=== PATIENT | male | born 1950 | race Caucasian/White ===

== ENCOUNTER → 2016-06-27 | Outpatient (CLI) | payer MEDICARE, BC ==
--- NOTE | 2016-06-27 13:57 | CT ---
EXAMINATION TYPE: CT sinus wo con DATE OF EXAM: 06/27/2016 1:00 PM COMPARISON: NONE HISTORY: 66-year-old male complains of recurrent sinus infections. CT DLP: 573 mGycm Automated exposure control for dose reduction was used. TECHNIQUE: Noncontrast axial views of the paranasal sinuses were obtained. Coronal reconstructions pe rformed. FINDINGS: Moderate mucosal thickening right maxillary sinus with air-fluid level. Mild mucosal thickening left maxillary sinus with an inferior 1.2 cm polyp or mucosal retention cyst. Scattered mild mucosal thickening ethmoid air cells and some frothy partial opacification of the righ t frontal sinus. Suggestion of slight reactive ny- osteogenesis involving the posterior right maxillary sinus wall. There is no destruction of the osseous sotelo of the paranasal sinuses. The osteomeatal complexes are patent. The imaged brain, sella, skull base and orbits are normal in appearance. Mastoid air cells and middle ear cavities are well pneumatized. Reformatted images confirm above findings. IMPRESSION: 1. Findings suggest acute on chronic right maxillary sinus disease. Possible additional acute sinusit is involving the right frontal sinus. 2. Additional scattered mild mucosal thickening left maxillary sinus and ethmoid air cells. 3. There is some reactive ny-osteogenesis involving the right maxillary sinus wall suggesting long-s tanding chronic sinusitis.
== END | disposition home or self-care (01) ==
LOC: RADCTMAIN 12:40
PROVIDERS: ATTEND Otolaryngology
DX: J32.9 Chronic sinusitis, unspecified (principal)
CPT/HCPCS: 70486

== ENCOUNTER → 2016-07-10 | Outpatient (CLI) | payer MEDICARE, BC ==
[2016-07-10 09:37] LABS: Potassium 3.8 mmol/L (3.5-5.1)
== END ==
LOC: LABWHC1 08:30
PROVIDERS: ATTEND Orthopaedic Surgery
DX: Z01.812 Encounter for preprocedural laboratory examination (principal)
CPT/HCPCS: 36415; 80051

== ENCOUNTER 2016-09-10 09:13 | Day surgery (SDC) | payer BC, MEDICARE ==
[2016-09-04 09:52] VITALS: BMI 31.1
[~2016-09-10 09:13] MED LIST: DEXAMETHASONE SOD PHOSPHATE 10 MG/ML 1 ML VIAL IV ONE; DEXAMETHASONE SOD PHOSPHATE 4 MG/ML 1 ML VIAL IV ONE; FAMOTIDINE 20 MG/2 ML VIAL IV ONE; HYDROmorphone 1 MG/ML 1 ML SYRINGE IVP PRN; LACTATED RINGERS 1,000 ML IV SCH; ONDANSETRON 4 MG/2 ML VIAL IVP ONE; ceFAZolin 1,000 MG in DEXTROSE/WATER 1 50ML.BAG IV ONE
[2016-09-10 10:18] VITALS: RESP 16
[2016-09-10] MEDS: OXYMETAZOLINE 0.05% NASL SPRAY 15 ML NASAL ONE ×5 (10:18→10:37)
[2016-09-10] MEDS ORDERED: LIDOCAINE 1% 20 ML VIAL (10MG/ML) FOR IV START INTRADERMA ONE (10:22)
[2016-09-10] MEDS ORDERED: DEXAMETHASONE SOD PHOS (MDV) 100 MG/10 ML VIAL ONE (10:36)
[2016-09-10] MEDS ORDERED: MIDAZOLAM 2 MG/2 ML VIAL ONE (10:36)
[2016-09-10] MEDS ORDERED: ePHEDrine 50 MG/ML 1 ML AMP ONE (10:36)
[2016-09-10] MEDS ORDERED: LIDOCAINE 1% INJ 10MG/ML (20 ML MDV) ONE (10:36)
[2016-09-10] MEDS ORDERED: PROPOFOL 10 MG/ML 20 ML VIAL IV ONE (10:36)
[2016-09-10] MEDS ORDERED: SUCCINYLCHOLINE CHLORIDE 100 MG/5 ML SYR IV ONE (10:36)
[2016-09-10] MEDS ORDERED: fentaNYL (PF) 50 MCG/ML 2 ML AMP ONE (10:36)
[2016-09-10] MEDS ORDERED: LIDOCAINE 1%-EPI 1:100,000 20 ML VIAL SUBMUCOSAL ONE (10:53)
--- NOTE | 2016-09-10 10:57 | US ---
EXAMINATION TYPE: US venous doppler duplex LE LT DATE OF EXAM: 09/10/2016 9:44 AM COMPARISON: NONE CLINICAL HISTORY: R/O DVT . SIDE PERFORMED: left TECHNIQUE: The lower extremity deep venous system is examined utilizing real time linear array sonog mireille with graded compression, doppler sonography and color-flow sonography. VESSELS IMAGED: External Iliac Vein (EIV) Common Femoral Vein Deep Femoral Vein Greater Saphenous Vein * Femoral Vein Popliteal Vein Small Saphenous Vein * Proximal Calf Veins (* superficial vessels) Bakers cyst left measuring 8.1 x 2.4 x 5.4cm Left Leg: Negative for DVT IMPRESSION: 1. THIS EXAMINATION IS NEGATIVE FOR DVT WITHIN THE LEFT LEG. 2. LARGE, 8 CM POPLITEAL FOSSA CYST.
[2016-09-10] MEDS ORDERED: OXYMETAZOLINE 0.05% NASL SPRAY 15 ML ONE (11:54)
--- NOTE | 2016-09-10 11:55 | P.OP ---
Date of Procedure: 09/10/16 Preoperative Diagnosis: Deviated nasal septum Inferior turbinate hypertrophy Chronic sinusitis Postoperative Diagnosis: Same Procedure(s) Performed: Septoplasty Outfracture and submucous resection of inferior turbinates Bilateral endoscopic sinus surgery including bilateral maxillary antrostomy, bilateral anterior posterior ethmoidectomy, right frontal sinus plasty Implants: Anesthesia: YVAN Surgeon: Moustapha Lynn Estimated Blood Loss (ml): 20 Pathology: other (Nasal septal bone and cartilage and sinus contents) Condition: stable Disposition: PACU Indications for Procedure: Is a 66-year-old white male with chronic nasal airway obstruction congestion and recurrent sinus infections as well as chronic drainage more on the right than the left with computed tomography scan showing evidence of chronic sinusitis. Operative Findings: Septum deviated to the left, inferior turbinate hypertrophy, chronic sinusitis involving the maxillary ethmoid as well as right frontal sinuses Description of Procedure: The patient was brought in the operative suite and placed in a supine position. The patient underwent induction of general anesthesia with oral endotracheal intubation without difficulty. The patient was prepped and draped in the usual aseptic fashion. Orbits were in the operating field for monitoring The case and computed tomography scan was on the computer screen for review throughout the case also. 1% lidocaine with 1-100,000 epinephrine was infused submucosally both sides nasal septum. This is also infused lateral nasal wall bilaterally and. The middle turbinates bilaterally. While this was taking vasoconstrictive effect the inferior turbinates were infractured with Gila elevator partial submucous resection inferior turbinates was performed with Coblation ablating a portion of the submucosal soft tissue and then outfractured with the Gila elevator. A left hemitransfixion incision was made with the mucoperichondrial and mucoperiosteal flap on the left elevated. The bony cartilaginous junction was disarticulated and the mucoperiosteal flap on the right was elevated. Bony nasal septal deformities were removed Omar forceps. An inferior cartilaginous strip was removed leaving a full 1.5 cm caudal strut. Checking intranasally this corrected the nasoseptal deformities and the hemitransfixion incision was closed running 4-0 chromic suture. Full 0 endoscopic evaluation is performed bilaterally. Beginning on the left the middle turbinate was medialized with the Haworth elevator. The max ostium was located with a ballpoint probe and infundibulotomy was performed followed by uncinectomy and the antrostomy was enlarged at the expense of the anterior and posterior fontanelle taking care anteriorly not to injure the lacrimal bone. Maxillary sinus was evaluated with a 30 and 70 endoscope. Anterior posterior ethmoidectomy were then performed from anterior to posterior to the level skull base. There were small polyps within the ethmoid air cells. Attention was then turned to the right where the procedures were followed as they were on the left including medialization middle turbinate maxillary antrostomy with exploration of the sinus anterior posterior ethmoidectomy. Frontal sinusotomy was performed on the right with the balloon sinus plasty technique using the entOnepagerus light guided system with the sinus was explored also with the 30 endoscope. Once this was completed standard nasal pore nasal dressing was placed in the middle meatus under direct visualization bilaterally and Najera airway splints coated bacitracin ointment were placed in nasal cavities and sutured trans-septally with a 4-0 Vicryl suture. Once this completed the patient was allowed to emerge from anesthesia having tolerated procedure well was extubated in the operating suite and transferred to postop recovery area in satisfactory condition.
[2016-09-10 12:03] VITALS: TEMP 98.4
[2016-09-10 14:22] VITALS: BP 111/72; PULSE 76
== END 2016-09-10 14:44 | disposition home or self-care (01) ==
LOC: OR 09:13
PROVIDERS: ATTEND Otolaryngology
DX: J34.2 Deviated nasal septum (principal); J34.3 Hypertrophy of nasal turbinates; J32.9 Chronic sinusitis, unspecified; I10 Essential (primary) hypertension; Z87.891 Personal history of nicotine dependence; E78.5 Hyperlipidemia, unspecified; E07.9 Disorder of thyroid, unspecified; Z79.899 Other long term (current) drug therapy; Z79.84 Long term (current) use of oral hypoglycemic drugs
CPT/HCPCS: 88305; 88300; 93971; 30140; 30520; 31256; 31255; 31276; C1726; J2250; J1100 ×2; J2405; J2001; J3010; J0690; J0330; J2704

== ENCOUNTER 2019-09-26 06:55 | Inpatient (IN) | payer MEDICARE ==
--- NOTE | 2019-09-26 07:28 | ED ---
General Adult HPI - General Chief complaint: Psychiatric Symptoms Stated complaint: Mental Health Time Seen by Provider: 09/26/19 07:11 Source: patient, RN notes reviewed Mode of arrival: ambulatory Limitations: no limitations - History of Present Illness Initial comments: Patient is a pleasant 69-year-old male presenting to the emergency Department with depression. Symptoms have been worse over the past few months. Patient has not been sleeping or eating well. Patient has lost 20-30 pounds. Patient was restarted on his Celexa a few months ago. Patient was then change to Cymbalta 2 weeks ago. Patient occasionally has thoughts of ways he could harm himself however does not believe he would act on it. No homicidal thoughts. Patient does drink however discontinue this a couple months ago. He should does have history of atrial fibrillation. Otherwise no physical complaints. - Related Data Home Medications Medication Instructions Recorded Confirmed Aspirin [Adult Low Dose Aspirin EC] 81 mg PO DAILY 09/04/16 09/26/19 Cholecalciferol [Vitamin D3] 2,000 unit PO DAILY 09/04/16 09/26/19 Levothyroxine Sodium [Synthroid] 25 mcg PO DAILY 09/04/16 09/26/19 Losartan/Hydrochlorothiazide 1 tab PO DAILY 09/04/16 09/26/19 [Hyzaar 100-25 Tablet] Metoprolol Succinate (ER) [Toprol 50 mg PO BID 09/04/16 09/26/19 Xl] ALPRAZolam [Xanax] 0.125 mg PO BID PRN 09/26/19 09/26/19 Apixaban [Eliquis] 5 mg PO BID 09/26/19 09/26/19 DULoxetine HCL [Cymbalta] 30 mg PO BID 09/26/19 09/26/19 Doxycycline Monohydrate 40 mg PO DAILY 09/26/19 09/26/19 [Doxycycline Ir-Dr] Rosuvastatin Calcium 5 mg PO DAILY 09/26/19 09/26/19 Allergies Allergy/AdvReac Type Severity Reaction Status Date / Time No Known Allergies Allergy Verified 09/26/19 10:41 Review of Systems ROS Statement: Those systems with pertinent positive or pertinent negative responses have been documented in the HPI. ROS Other: All systems not noted in ROS Statement are negative. Constitutional: Denies: fever Eyes: Denies: eye pain ENT: Denies: ear pain Respiratory: Denies: cough Cardiovascular: Denies: chest pain Endocrine: Reports: fatigue Gastrointestinal: Denies: abdominal pain Genitourinary: Denies: dysuria Musculoskeletal: Denies: back pain Skin: Denies: rash Neurological: Denies: headache Psychiatric: Reports: as per HPI, anxiety, depression Past Medical History Past Medical History: Atrial Fibrillation, Hyperlipidemia, Hypertension, Thyroid Disorder History of Any Multi-Drug Resistant Organisms: None Reported Past Surgical History: Orthopedic Surgery Additional Past Surgical History / Comment(s): achilles tendon repair, carpal tunnel R wrist, veronica knee scope Past Anesthesia/Blood Transfusion Reactions: No Reported Reaction Past Psychological History: Anxiety, Depression Smoking Status: Former smoker Past Alcohol Use History: None Reported Past Drug Use History: None Reported - Past Family History Mother Family Medical History: No Reported History General Exam Limitations: no limitations General appearance: alert, in no apparent distress Head exam: Present: normocephalic Eye exam: Present: normal appearance Neck exam: Present: normal inspection Respiratory exam: Present: normal lung sounds bilaterally Cardiovascular Exam: Present: regular rate, normal rhythm GI/Abdominal exam: Present: soft. Absent: tenderness Extremities exam: Present: normal inspection Neurological exam: Present: alert. Absent: motor sensory deficit Psychiatric exam: Present: depressed Skin exam: Present: normal color Course Vital Signs 09/26/19 09/26/19 09/26/19 06:59 08:10 09:30 Temperature 97.9 F 97.8 F Pulse Rate 62 114 H Respiratory 18 16 Rate Blood Pressure 148/105 132/91 137/107 O2 Sat by Pulse 99 98 Oximetry 09/26/19 10:00 Temperature Pulse Rate 106 H Respiratory 15 Rate Blood Pressure 142/107 O2 Sat by Pulse Oximetry EKG Findings - EKG Comments: EKG Findings:: A. fib with RVR, rate 124. QRS 92. QT 300. QTc were 31. Left axis. Inferior Q waves. No acute ST change. Medical Decision Making - Medical Decision Making Patient seen by mental health services with plan for admission - Lab Data Result diagrams: 09/26/19 08:24 09/26/19 08:24 Lab Results 09/26/19 09/26/19 09/26/19 Range/Units 07:30 08:24 08:24 WBC 4.6 (3.8-10.6) k/uL RBC 5.01 (4.30-5.90) m/uL Hgb 16.7 (13.0-17.5) gm/dL Hct 49.2 (39.0-53.0) % MCV 98.2 (80.0-100.0) fL MCH 33.3 (25.0-35.0) pg MCHC 33.9 (31.0-37.0) g/dL RDW 12.6 (11.5-15.5) % Plt Count 157 (150-450) k/uL Neutrophils % 54 % Lymphocytes % 31 % Monocytes % 9 % Eosinophils % 4 % Basophils % 1 % Neutrophils # 2.5 (1.3-7.7) k/uL Lymphocytes # 1.4 (1.0-4.8) k/uL Monocytes # 0.4 (0-1.0) k/uL Eosinophils # 0.2 (0-0.7) k/uL Basophils # 0.0 (0-0.2) k/uL Sodium 134 L (137-145) mmol/L Potassium 4.1 (3.5-5.1) mmol/L Chloride 99 (98-107) mmol/L Carbon Dioxide 27 (22-30) mmol/L Anion Gap 8 mmol/L BUN 15 (9-20) mg/dL Creatinine 0.88 (0.66-1.25) mg/dL Est GFR (CKD-EPI)AfAm >90 (>60 ml/min/1.73 sqM) Est GFR (CKD-EPI)NonAf 89 (>60 ml/min/1.73 sqM) Glucose 104 H (74-99) mg/dL Calcium 9.5 (8.4-10.2) mg/dL Urine Color Yellow Urine Appearance Clear (Clear) Urine pH 5.5 (5.0-8.0) Ur Specific [place] 1.013 (1.001-1.035) Urine Protein Negative (Negative) Urine Glucose (UA) Negative (Negative) Urine Ketones Negative (Negative) Urine Blood Negative (Negative) Urine Nitrite Negative (Negative) Urine Bilirubin Negative (Negative) Urine Urobilinogen <2.0 (<2.0) mg/dL Ur Leukocyte Esterase Negative (Negative) Urine Opiates Screen Not Detected (NotDetected) Ur Oxycodone Screen Not Detected (NotDetected) Urine Methadone Screen Not Detected (NotDetected) Ur Propoxyphene Screen Not Detected (NotDetected) Ur Barbiturates Screen Not Detected (NotDetected) U Tricyclic Antidepress Not Detected (NotDetected) Ur Phencyclidine Scrn Not Detected (NotDetected) Ur Amphetamines Screen Not Detected (NotDetected) U Methamphetamines Scrn Not Detected (NotDetected) U Benzodiazepines Scrn Detected H (NotDetected) Urine Cocaine Screen Not Detected (NotDetected) U Marijuana (THC) Screen Not Detected (NotDetected) Serum Alcohol <10 mg/dL Disposition Clinical Impression: Depression, Acute anxiety Disposition: TRANSFER TO PSYCH HOSP/UNIT Is patient prescribed a controlled substance at d/c from ED?: No Referrals: Ted Roca MD [Primary Care Provider] - 1-2 days Decision Time: 11:27
[2019-09-26 07:38] LABS: Appearance,Urine Clear (Clear); Bilirubin,Urine Negative (Negative); Blood,Urine Negative (Negative); Color,Urine Yellow; Glucose,Urine (UA) Negative (Negative); Ketones,Urine Negative (Negative); Leukocyte Esterase,Urine Negative (Negative); Nitrite,Urine Negative (Negative); PH, Urine 5.5 (5.0-8.0); Protein,Urine Negative (Negative); Specific Gravity,Urine 1.013 (1.001-1.035); Urobilinogen,Urine <2.0 mg/dL (<2.0)
[2019-09-26 07:49] LABS: Amphetamine Screen,Urine Not Detected (NotDetected); Barbiturate Screen,Urine Not Detected (NotDetected); Benzodiazepines Screen,Urine Detected (NotDetected); Cocaine Screen,Urine Not Detected (NotDetected); Methadone Screen, Urine Not Detected (NotDetected); Opiate Screen,Urine Not Detected (NotDetected); Oxycodone Screen, Urine Not Detected (NotDetected); Phencyclidine Screen,Urine Not Detected (NotDetected); Tricyclic Antidepressant,Urine Not Detected (NotDetected); Urn Cannabinoid Scrn Not Detected (NotDetected)
[2019-09-26] MEDS ORDERED: METOPROLOL TARTRATE 25 MG TAB PO STA (08:19)
[2019-09-26 08:42] LABS: Basophils % (A) 1 %; Eosinophils # (A) 0.2 k/uL (0-0.7); Eosinophils % (A) 4 %; HCT 49.2 % (39.0-53.0); HGB 16.7 gm/dL (13.0-17.5); Lymphocytes # (A) 1.4 k/uL (1.0-4.8); Lymphocytes % (A) 31 %; MCH 33.3 pg (25.0-35.0); MCHC 33.9 g/dL (31.0-37.0); MCV 98.2 fL (80.0-100.0); Mean Platelet Volume 7.5; Monocytes # (A) 0.4 k/uL (0-1.0); Monocytes % (A) 9 %; Neutrophils # (A) 2.5 k/uL (1.3-7.7); Neutrophils % (A) 54 %; Platelet Count 157 k/uL (150-450); RBC 5.01 m/uL (4.30-5.90); RDW 12.6 % (11.5-15.5); WBC 4.6 k/uL (3.8-10.6)
[2019-09-26 08:51] LABS: African American GFR (CKD) >90 (>60 ml/min/1.73 sqM); Alcohol <10 mg/dL; Anion Gap 8 mmol/L; Blood Urea Nitrogen 15 mg/dL (9-20); Calcium 9.5 mg/dL (8.4-10.2); Carbon Dioxide 27 mmol/L (22-30); Chloride 99 mmol/L (98-107); Glucose 104 mg/dL (74-99); Non-African American GFR(CKD) 89 (>60 ml/min/1.73 sqM); Potassium 4.1 mmol/L (3.5-5.1); Sodium 134 mmol/L (137-145)
[2019-09-26] MEDS ORDERED: LORazepam 1 MG TAB PO STA (10:31)
[2019-09-26] MEDS ORDERED: ENALAPRILAT 1.25 MG/ML 1 ML VIAL IVP STA (11:43)
[2019-09-26] MEDS ORDERED: MAG HYDROX/AL HYDROX/SIMETH 30 ML CUP PO PRN (13:37)
[2019-09-26] MEDS ORDERED: ZIPRASIDONE 20 MG VIAL IM PRN (13:37)
[2019-09-26] MEDS ORDERED: ACETAMINOPHEN TAB 325 MG TAB PO PRN (13:37)
[2019-09-26] MEDS ORDERED: MAGNESIUM HYDROXIDE 2,400 MG/10 ML CUP PO PRN (13:37)
[2019-09-26] MEDS ORDERED: LORazepam 1 MG TAB PO PRN (13:37)
[2019-09-26 14:50] VITALS: BMI 27.8
--- NOTE | 2019-09-26 17:47 | P.MDCNMH ---
History of Present Illness H&P Date: 09/26/19 Chief Complaint: Medical management 69-year-old male with PMH of hypertension, atrial fibrillation hypothyroidism presents the ED for constellation of symptoms. He has been admitted to mental health unit for further management of his symptoms. [facility] physicians has been consulted for medical management of this patient. Patient reports worsening anxiety and insomnia over the past 2 months. He also reports worsening depression with passive suicidal thoughts but no plan. Patient states that he retired recently prior to coronavirus. He has worsening stressors in his life given that this daughter's have lost their jobs during this time daily. Patient states that prior to detention, he was a functional alcoholic for 35 years. Patient reports drinking anywhere between 2-7 beers, 4- 5 times a week. Patient states that he quit drinking on 07/08/2019. Patient reports his symptoms have been worsening since then. Patient states that he has not slept over the past 3 days. Patient denies any headache, lower extremity edema, nausea or vomiting, fever or chills, cough, chest pain, shortness of breath, palpitations, changes in urination or bowel habits. No changes in appetite or weight. He denies any dizziness, numbness/weakness or tingling of the extremities. In the ED, his vital signs were stable except for heart rate of 114. CBC was unremarkable. BMP showed sodium 134 and glucose 104. Urinalysis was negative. UDS was positive for benzodiazepines. Serum alcohol was negative. Review of Systems Pertinent positives and negatives as discussed in HPI, a complete review of systems was performed and all other systems are negative. Past Medical History Past Medical History: Atrial Fibrillation, Hyperlipidemia, Hypertension, Thyroid Disorder History of Any Multi-Drug Resistant Organisms: None Reported Past Surgical History: Orthopedic Surgery Additional Past Surgical History / Comment(s): achilles tendon repair, carpal tunnel R wrist, veronica knee scope Past Anesthesia/Blood Transfusion Reactions: No Reported Reaction Past Psychological History: Anxiety, Depression Smoking Status: Former smoker Past Alcohol Use History: None Reported Past Drug Use History: None Reported - Past Family History Mother Family Medical History: No Reported History Medications and Allergies Home Medications Medication Instructions Recorded Confirmed Type Aspirin [Adult Low Dose Aspirin EC] 81 mg PO DAILY 09/04/16 09/26/19 History Cholecalciferol [Vitamin D3] 2,000 unit PO DAILY 09/04/16 09/26/19 History Levothyroxine Sodium [Synthroid] 25 mcg PO DAILY 09/04/16 09/26/19 History Losartan/Hydrochlorothiazide 1 tab PO DAILY 09/04/16 09/26/19 History [Hyzaar 100-25 Tablet] Metoprolol Succinate (ER) [Toprol 50 mg PO BID 09/04/16 09/26/19 History Xl] ALPRAZolam [Xanax] 0.125 mg PO BID PRN 09/26/19 09/26/19 History Apixaban [Eliquis] 5 mg PO BID 09/26/19 09/26/19 History DULoxetine HCL [Cymbalta] 30 mg PO BID 09/26/19 09/26/19 History Doxycycline Monohydrate 40 mg PO DAILY 09/26/19 09/26/19 History [Doxycycline Ir-Dr] Rosuvastatin Calcium 5 mg PO DAILY 09/26/19 09/26/19 History Allergies Allergy/AdvReac Type Severity Reaction Status Date / Time No Known Allergies Allergy Verified 09/26/19 14:04 Physical Exam Vitals: Vital Signs Temp Pulse Pulse Resp BP BP Pulse Ox 09/26/19 14:16 97.3 F L 98 18 121/84 98 09/26/19 13:55 97.3 F L 98 18 121/84 98 09/26/19 13:00 16 126/93 09/26/19 12:02 125/99 09/26/19 11:32 71 18 130/107 98 09/26/19 10:00 106 H 15 142/107 09/26/19 09:30 137/107 09/26/19 08:10 97.8 F 114 H 16 132/91 98 09/26/19 06:59 97.9 F 62 18 148/105 99 Intake and Output 09/26/19 09/26/19 09/26/19 06:59 14:59 22:59 Other: Weight 90.718 kg 90.718 kg General: [non toxic], [no distress], [appears at stated age] Derm: [warm], [dry] Head: [atraumatic], [normocephalic], [symmetric] Eyes: [EOMI], [no lid lag], [anicteric sclera] Mouth: [no lip lesion], [mucus membranes moist] Cardiovascular: [S1S2 irregular], [no murmur], [positive DP pulse bilateral], Lungs: [CTA bilateral], [no rhonchi, no rales] , [no accessory muscle use] Abdominal: [soft], [ nontender to palpation], [no guarding], [no appreciable organomegaly] Ext: [no gross muscle atrophy], [no edema], [no contractures] Neuro: [ CN II-XI grossly intact], [no focal neuro deficits] Psych: [Alert], [oriented], [appropriate affect] Cranial Nerve Examination - Cranial Nerves Cranial Nerve II- Optic: Intact Cranial Nerve III- Oculomotor: Intact Cranial Nerve IV- Trochlear: Intact Cranial Nerve V- Trigeminal: Intact Cranial Nerve - Abducens: Intact Cranial Nerve VII- Facial: Intact Cranial Nerve VIII- Auditory: Intact Cranial Nerve IX- Glossopharyngeal: Intact Cranial Nerve X- Vagus: Intact Cranial Nerve XI- Accessory: Intact Cranial Nerve XII- Hypoglossal: Intact Results CBC & Chem 7: 09/26/19 08:24 09/26/19 08:24 Labs: Abnormal Lab Results - Last 24 Hours (Table) 09/26/19 09/26/19 Range/Units 07:30 08:24 Sodium 134 L (137-145) mmol/L Glucose 104 H (74-99) mg/dL U Benzodiazepines Scrn Detected H (NotDetected) Assessment and Plan Assessment: Atrial fibrillation with RVR Hypothyroidism Hypertension Chronic alcohol use EKG shows atrial fibrillation with RVR ventricular rate of 124. Patient was given metoprolol 25 mg by mouth in the ED. He will be restarted on metoprolol 50 g by mouth twice a day. Eliquis will be restarted for anticoagulation. His home medication of Synthroid 25 g by mouth daily will be restarted for history of hypothyroidism. Given his bout of A. fib with RVR, it would be appropriate to recheck TSH. His current blood pressure is 130/107. He will be restarted on losartan and hydrochlorothiazide. Patient's last drink was on July 07. He is outside the window for alcohol withdrawal. We will defer treatment of his chronic alcohol abuse to psychiatry. Thank you for this consult. Please call with any additional questions or concerns.
[2019-09-26 19:58] VITALS: TEMP 98.8
[2019-09-26 20:23] LABS: Appearance,Urine Clear (Clear); Bilirubin,Urine Negative (Negative); Blood,Urine Negative (Negative); Color,Urine Yellow; Glucose,Urine (UA) Negative (Negative); Ketones,Urine 1+ (Negative); Leukocyte Esterase,Urine Negative (Negative); Nitrite,Urine Negative (Negative); Protein,Urine Negative (Negative); Specific Gravity,Urine 1.009 (1.001-1.035); Urobilinogen,Urine <2.0 mg/dL (<2.0)
[2019-09-26] MEDS ORDERED: METOPROLOL SUCCINATE (ER) 50 MG TAB.ER.24H PO SCH (21:00)
[2019-09-26] MEDS ORDERED: DULoxetine HCL 30 MG CAPSULE.DR PO SCH (21:00)
[2019-09-26] MEDS ORDERED: APIXABAN 5 MG TAB PO SCH (21:00)
[2019-09-26] MEDS ORDERED: MELATONIN 5 MG TABLET PO SCH (21:00)
[2019-09-26 22:00] VITALS: RESP 18
[2019-09-26 22:34] VITALS: BP 84/52; PULSE 82
[2019-09-27] MEDS ORDERED: LEVOTHYROXINE 25 MCG TAB PO SCH (06:30)
[2019-09-27] MEDS ORDERED: DOXYCYCLINE MONOHYDRATE 40 MG PO SCH (09:00)
[2019-09-27] MEDS ORDERED: LOSARTAN-HCTZ 50-12.5 MG 1 EACH TAB PO SCH (09:00)
[2019-09-27] MEDS ORDERED: ASPIRIN 81 MG PO SCH (09:00)
[2019-09-27] MEDS ORDERED: ATORVASTATIN 10 MG TAB PO SCH (09:00)
[2019-09-27] MEDS ORDERED: CHOLECALCIFEROL 1,000 UNIT TAB PO SCH (09:00)
== END 2019-09-26 22:54 | disposition short-term general hospital (02) | DRG 881 ==
LOC: EC 06:55 → 3MHU 13:26
PROVIDERS: ADMIT Psychiatry & Neurology Psychiatry; ATTEND Psychiatry & Neurology Psychiatry
DX: F32.9 Major depressive disorder, single episode, unspecified (principal); R45.851 Suicidal ideations; F41.0 Panic disorder [episodic paroxysmal anxiety]; I48.91 Unspecified atrial fibrillation; I10 Essential (primary) hypertension; F10.20 Alcohol dependence, uncomplicated; E03.9 Hypothyroidism, unspecified; G47.00 Insomnia, unspecified; Y90.0 Blood alcohol level of less than 20 mg/100 ml; E78.5 Hyperlipidemia, unspecified; Z87.891 Personal history of nicotine dependence; Z79.01 Long term (current) use of anticoagulants; Z79.82 Long term (current) use of aspirin; Z79.890 Hormone replacement therapy; Z79.899 Other long term (current) drug therapy; Z98.890 Other specified postprocedural states
CPT/HCPCS: 36415; 80048; 80306; 80320; 81003; 82075; 85025; 93005; 96374; 99285

== ENCOUNTER 2019-09-26 21:43 | Inpatient (IN) | payer MEDICARE ==
[2019-09-27] MEDS: MELATONIN 5 MG TABLET PO PRN ×2 (00:37→23:53)
[2019-09-27] MEDS ORDERED: NALOXONE 0.4 MG/ML 1 ML VIAL IV PRN (01:31)
--- NOTE | 2019-09-27 01:35 | P.HPIM ---
History of Present Illness H&P Date: 09/27/19 The patient is a 69-year-old male with a PMH of A. fib on Eliquis, hypertension, hyperlipidemia, and hypothyroidism who presented to the ED initially on 09/25 with complaints of anxiety and insomnia along with depression and suicidal ideation. The patient was admitted to the mental health unit. Following admission however, the patient was noted to be hypotensive with a BP of 84/52 and a pulse of 120. The patient also reported feeling very dizzy upon standing. The patient was evaluated at the mental health unit where he noted palpitations and dizziness and denied chest discomfort or shortness of breath. He also denied nausea, vomiting, diaphoresis, weakness, numbness, tingling, or loss of c onsciousness. The patient reports that his Lopressor was recently increased from 25 mg twice a day to 50 mg twice a day and that he took his last dose earlier today and had also received a 25 mg Lopressor dose in the ED. Review of Systems Pertinent positives and negatives as discussed in HPI, a complete review of systems was performed and all other systems are negative. Past Medical History Past Medical History: Atrial Fibrillation, Hyperlipidemia, Hypertension, Thyroid Disorder History of Any Multi-Drug Resistant Organisms: None Reported Past Surgical History: Orthopedic Surgery Additional Past Surgical History / Comment(s): achilles tendon repair, carpal tunnel R wrist, veronica knee scope Past Anesthesia/Blood Transfusion Reactions: No Reported Reaction Past Psychological History: Anxiety, Depression Smoking Status: Former smoker Past Alcohol Use History: None Reported Past Drug Use History: None Reported - Past Family History Mother Family Medical History: No Reported History Medications and Allergies Home Medications Medication Instructions Recorded Confirmed Type Aspirin [Adult Low Dose Aspirin EC] 81 mg PO DAILY 09/04/16 09/26/19 History Cholecalciferol [Vitamin D3] 2,000 unit PO DAILY 09/04/16 09/26/19 History Levothyroxine Sodium [Synthroid] 25 mcg PO DAILY 09/04/16 09/26/19 History Losartan/Hydrochlorothiazide 1 tab PO DAILY 09/04/16 09/26/19 History [Hyzaar 100-25 Tablet] Metoprolol Succinate (ER) [Toprol 50 mg PO BID 09/04/16 09/26/19 History Xl] ALPRAZolam [Xanax] 0.125 mg PO BID PRN 09/26/19 09/26/19 History Apixaban [Eliquis] 5 mg PO BID 09/26/19 09/26/19 History DULoxetine HCL [Cymbalta] 30 mg PO BID 09/26/19 09/26/19 History Doxycycline Monohydrate 40 mg PO DAILY 09/26/19 09/26/19 History [Doxycycline Ir-Dr] Rosuvastatin Calcium 5 mg PO DAILY 09/26/19 09/26/19 History Allergies Allergy/AdvReac Type Severity Reaction Status Date / Time No Known Allergies Allergy Verified 09/26/19 14:04 Physical Exam Vitals: Vital Signs Temp Pulse Resp BP Pulse Ox 09/26/19 23:02 97.8 F 102 H 18 108/80 97 Intake and Output 09/26/19 09/26/19 09/27/19 14:59 22:59 06:59 Other: # Voids 1 Weight 89.811 kg General: non toxic, no distress, appears at stated age, normal weight Derm: no unusual rashes/lesions no unusual ecchymoses, warm, dry Head: atraumatic, normocephalic, symmetric Eyes: EOMI, no lid lag, anicteric sclera, pupils equal round reactive to light ENT: Nose and ears atraumatic, no thrush, no pharyngeal erythema Neck: No thyromegaly, no cervical lymphadenopathy, trachea midline, supple Mouth: no lip lesion, mucus membranes moist Cardiovascular: Irregularly irregular, tachycardia, no murmur, positive posterior tibial pulse bilateral, no edema, capillary refill less than 2 seconds Lungs: CTA bilateral, no rhonchi, no rales , no accessory muscle use Abdominal: soft, nontender to palpation, no guarding, no appreciable organomegaly, normal bowel sounds Ext: no gross muscle atrophy, muscle strength 5 out of 5 in all 4 extremities grossly, no contractures, Neuro: CN II-XI grossly intact, light touch intact all 4 extremities, finger to nose within normal limits, Psych: Alert, oriented, appropriate affect Thrombosis Risk Factor Assmnt - Choose All That Apply Any of the Below Risk Factors Present?: Yes Each Factor Represents 1 point: Obesity (BMI >25) Other Risk Factors: Yes Each Risk Factor Represents 2 Points: Age 61-74 years Thrombosis Risk Factor Assessment Total Risk Factor Score: 3 Thrombosis Risk Factor Assessment Level: Moderate Risk Assessment and Plan Plan: A. fib, RVR resolved -BP improved to 108/80 spontaneously -Continue with cardiac monitoring -Continue with 50 mg Lopressor twice a day -Cardiology consult -Hold off on home doses of Hyzaar -Continue with Eliquis and aspirin -Strict bedrest -Fall precautions Depression, anxiety -Psych consult -1:1 sitter Hyperlipidemia -Continue with Crestor home dose Hypothyroidism -Recheck TSH -Continue with levothyroxine for now DVT prophylaxis -Eliquis The patient is admitted with an anticipated less than 2 midnight stay for evaluation of Afib CODE STATUS: Full Code Discussed with: Patient Anticipated discharge date: 1-[address]: [facility] A total of 35 minutes was spent on the care of this complex patient more than 50% of the time was spent in counseling and care coordination.
[2019-09-27] MEDS: LEVOTHYROXINE 25 MCG TAB PO SCH ×2 (04:18→12:08)
[2019-09-27 08:25] VITALS: BMI 26.1
[2019-09-27 08:36] LABS: HCT 50.2 % (39.0-53.0); HGB 16.8 gm/dL (13.0-17.5); MCH 33.7 pg (25.0-35.0); MCHC 33.6 g/dL (31.0-37.0); MCV 100.3 fL (80.0-100.0); Mean Platelet Volume 7.6; Platelet Count 173 k/uL (150-450); RDW 12.8 % (11.5-15.5); WBC 5.2 k/uL (3.8-10.6)
[2019-09-27 08:39] LABS: ALT 42 U/L (4-49); AST 29 U/L (17-59); African American GFR (CKD) >90 (>60 ml/min/1.73 sqM); Albumin 4.3 g/dL (3.5-5.0); Alkaline Phosphatase 51 U/L (38-126); Anion Gap 9 mmol/L; Blood Urea Nitrogen 16 mg/dL (9-20); Calcium 9.7 mg/dL (8.4-10.2); Carbon Dioxide 26 mmol/L (22-30); Chloride 99 mmol/L (98-107); Glucose 96 mg/dL (74-99); Magnesium 1.8 mg/dL (1.6-2.3); Non-African American GFR(CKD) >90 (>60 ml/min/1.73 sqM); Potassium 4.2 mmol/L (3.5-5.1); Sodium 134 mmol/L (137-145); Total Bilirubin 2.5 mg/dL (0.2-1.3); Total Protein 6.5 g/dL (6.3-8.2)
[2019-09-27] MEDS ORDERED: METOPROLOL TARTRATE 50 MG TAB PO SCH (09:00)
[2019-09-27] MEDS: ATORVASTATIN 10 MG TAB PO SCH (09:32)
[2019-09-27] MEDS: ASPIRIN 81 MG PO SCH (09:32)
[2019-09-27] MEDS: METOPROLOL SUCCINATE (ER) 50 MG TAB.ER.24H PO SCH ×2 (09:32→20:12)
[2019-09-27] MEDS: APIXABAN 5 MG TAB PO SCH ×2 (09:32→20:13)
[2019-09-27] MEDS: DULoxetine HCL 30 MG CAPSULE.DR PO SCH ×2 (09:32→20:13)
--- NOTE | 2019-09-27 10:50 | CONS ---
CONSULTATION Mr. Mason is a 69-year-old male with history of chronic persistent atrial fibrillation, history of hypertension who has been followed in the past by Dr. Hodge at [facility] and underwent cardioversion 3 years ago. He also has a history of mild coronary artery disease according to him by cardiac catheterization done twice. He was admitted to the mental health unit because of progressive anxiety, insomnia, and weakness. He was noted to have episode of hypotension and was transferred to the telemetry floor. The patient feels palpitation on and off and was seen in the emergency room at [facility] on Thursday with atrial fibrillation. It is unclear if he has been in sinus mechanism since the cardioversion. He denies any chest discomfort. He has the palpitation at times. He has no dyspnea. He has the dizziness when his blood pressure drops. He has no syncope. No peripheral edema. No PND. No orthopnea. He has no history of congestive heart failure or myocardial infarction. His coronary risk factors remarkable for history of hypertension, hyperlipidemia. He has stopped smoking 30 years ago. He is nondiabetic. MEDICATIONS: Include rosuvastatin 5 mg daily, metoprolol succinate 50 mg twice a day, losartan ACT 100-25 mg daily, Synthroid, Cymbalta, aspirin 81 mg daily, Eliquis 5 mg twice a day, and Xanax on a p.r.n. basis. SOCIAL HISTORY: Patient used to drink alcohol on a regular basis, but stopped about 10 weeks ago and since that time he has been having progressive insomnia and anxiety. REVIEW OF SYSTEMS: RESPIRATORY SYSTEM: No recent wheezing or cough. No history of obstructive lung disease. GI SYSTEM: No recent GI bleeding. No peptic ulcer disease. SYSTEM: No dysuria or hematuria. NERVOUS SYSTEM: No stroke or seizure. PHYSICAL EXAMINATION: A 69-year-old male, alert, oriented, in no apparent distress. Blood pressure 122/70 with a heart rate in the 90s. HEAD: Normocephalic. EYES: Sclerae nonicteric. NECK: Good upstroke, no bruit, no jugular venous distension. CHEST: Clear to auscultation. HEART: Irregular, regular, S1, S2. No S3. No rub. No murmur. ABDOMEN: Soft, nontender, positive bowel sounds, no organomegaly. EXTREMITIES: No edema, intact distal pulses. LAB DATA: Revealed a hemoglobin of 16.8, BUN and creatinine 16 and 0.84, potassium 4.2. TSH 1.93. EKG done on the mental health unit yesterday showed atrial fibrillation, rate of [address]-T wave changes. The patient had episode of hypotension earlier with a blood pressure in the 90s, that subsequently resolved. IMPRESSION: 1. Atrial fibrillation, persistent, anticoagulated with rate controlled at this time. 2. History of hypertension with episode of hypotension, resolved after stopping the losartan HCT. 3. History of hyperlipidemia. 4. History of mild coronary artery disease according to the patient. 5. History of hypothyroidism. 6. Depression and anxiety. RECOMMENDATION: From the cardiac standpoint, I will obtain echocardiogram with Doppler. I will try to obtain the prior workup that was done at [facility]. Will follow his blood pressure. If he is stable, then no further cardiac workup will be needed at this time and he can follow up with his primary flume maker. Thank you for this consult. Will follow with you. KAITL / IJN: [id number] /
--- NOTE | 2019-09-27 11:40 | ECHOF ---
Referral Reason:AFib Dizziness MEASUREMENTS -------- HEIGHT: 180.3 cm WEIGHT: 84.8 kg BP: 122/78 RVIDd: 2.8 cm (< 3.3) IVSd: 1.2 cm (0.6 - 1.1) LVIDd: 3.6 cm (3.9 - 5.3) LVPWd: 1.2 cm (0.6 - 1.1) IVSs: 1.7 cm LVIDs: 2.3 cm LVPWs: 1.6 cm LA Diam: 4.1 cm (2.7 - 3.8) LAESV Index (A-L): 31.97 ml/m Ao Diam: 3.9 cm (2.0 - 3.7) AV Cusp: 2.4 cm (1.5 - 2.6) MV EXCURSION: 13.991 mm (> 18.000) MV EF SLOPE: 97 mm/s (70 - 150) EPSS: 0.8 cm RAP: 5.00 mmHg RVSP: 22.12 mmHg FINDINGS -------- This was a technically adequate study. The left ventricular size is normal. There is borderline concentric left ventricular hypertrophy. Overall left ventricular systolic function is mildly impaired with, an EF between 45 - 50 %. The right ventricle is normal in size. LA is midly dilated 29-33ml/m2. The right atrium is normal in size. Interatrial and interventricular septum intact. There is mild aortic valve sclerosis. The mitral valve leaflets are mildly thickened. Mild mitral annular calcification present. There is trace to mild mitral regurgitation. Mild tricuspid regurgitation present. Right ventricular systolic pressure is normal at < 35 mmHg. Trace/mild (physiologic) pulmonic regurgitation. The aortic root is dilated measuring 3.9cm. IVC Not well visulized. There is no pericardial effusion. CONCLUSIONS -------- 1. This was a technically adequate study. 2. The left ventricular size is normal. 3. There is borderline concentric left ventricular hypertrophy. 4. Overall left ventricular systolic function is mildly impaired with, an EF between 45 - 50 %. 5. The right ventricle is normal in size. 6. LA is midly dilated 29-33ml/m2. 7. The right atrium is normal in size. 8. Interatrial and interventricular septum intact. 9. There is mild aortic valve sclerosis. 10. The mitral valve leaflets are mildly thickened. 11. Mild mitral annular calcification present. 12. There is trace to mild mitral regurgitation. 13. Mild tricuspid regurgitation present. 14. Right ventricular systolic pressure is normal at < 35 mmHg. 15. Trace/mild (physiologic) pulmonic regurgitation. 16. The aortic root is dilated measuring 3.9cm. 17. IVC Not well visulized. 18. There is no pericardial effusion. KNUCKLER: Farrah Polk RDCS
--- NOTE | 2019-09-27 14:00 | P.CN ---
Psychiatric Consult - . Consult date: 09/27/19 Consult:: IDENTIFYING DATA: He is a 69-year-old male who presented to the ED on 09/25/2022 by his with complaints of depression, anxiety and suicidal ideation. He was initially admitted to the psychiatric unit transfer red to medicine for evaluation and management of atrial fibrillation. HISTORY OF PRESENT ILLNESS: The EPS nurse spoke to him and his separately. He reported increasing depression since he was laid off from his job with [employer] in June. Because he was thinking about retiring in October after th elay off he applied for long term. He attributes increasing depression and anxiety as well as increased use of alcohol to his long term and his concerns about his family. He specifically talked about his 2 daughters who are both laid off from work as a result of the epidemic. He describes symptoms of depression and anxiety as well as intermittent panic attacks. His depression progressed to in July where he was not eating and lost approximately 30 pounds. His primary care provider at been prescribing Celexa but when his depression worsened started Cymbalta. The primary also prescribed Xanax up to 2 mg at bedtime for sleep. The patient complained that after his primary taper him off of Xanax he was unable to sleep. He alleges that he did not sleep for 3 days prior to admission. He minimized his suicidality stating that he told his before admission that he felt like taking all of his medications. However, when the EPS nurse spoke to his . She talked about the weight loss, depression and poor sleep and recurrent suicidal thoughts with a plan to tie weight around his waist and jump into the deep end of a pool. His use of alcohol increased over the same period of time in the past he would drink "1-2 drinks"" after work but in the months prior to admission he was drinking 2-3 packaged mixed drinks that he was supplemented with vodka. He denied periods of elevated mood or sustained irritability suggestive of mackenzie or hypomania. He denied obsessions or compulsions. He denied psychotic symptoms such as auditory, visual or olfactory hallucinations, ideas reference, thought insertion, thought broadcasting or thought control. PAST PSYCHIATRIC HISTORY: He met with a therapist "years ago" following the divorce from his first . His primary provider has prescribed Celexa for many years for treatment of panic attacks. He denied psychiatric hospitalizations.. PAST MEDICAL HISTORY: See medical admission and history.. ALLERGIES: NO KNOWN DRUG ALLERGIES. SUBSTANCE USE HISTORY: He denied a history of drug use. He described a social use of alcohol but an increase in alcohol and last 2-3 months prior to admission. During this time his is complained about his alcohol use. He is never been in atreatment program.. FAMILY PSYCHIATRIC/SUBSTANCE USE HISTORY: He is unaware of family history of mental health or substance use problems. SOCIAL HISTORY: Was born and raised in [place]. He graduated [employer] school and received a bachelor's degree and criminal justice administration from [employer]. 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 This is his second marriage. He has one child from his first marriage and his has 3 children from her first marriage. MENTAL STATUS EXAM: He presented as a tall thin pale appearing elderly male who is laying, openly in bed. She made eye contact and attended to the interview. He had no distinguishing features or prominent physical abnormalities. Anxious facial expression. He was alert and oriented to person, place and time. He showed slight psychomotor retardation but no abnormal involuntary movements. Speech was spontaneous with decreased rate and rhythm. His affect was dysphoric with anxiety and depression. He denied suicidal ideation and wishes. He denied homicidal ideation. He did not express feelings of hopelessness, helplessness or worthlessness. He ruminated about his insomnia and his concerns about returning to the psychiatric unit.. He did not express ideas reference, paranoid ideation or delusions. His thinking was abstract and associations were coherent, logical and goal directed. He denied hallucinations did not appear to be responding to internal stimuli. IMPRESSIONS: He is a 69-year-old male who has history of a panic disorder. He presented to the emergency room with depression, suicidal ideation, increased anxiety and panic attacks. He minimized his suicidality but his described suicidal thoughts and plans. He describes on the symptoms suggestive of major depressive disorder as well as infrequent panic attacks. He should be treated on an inpatient basis with her combination of psychopharmacology and multimodal therapy. DIAGNOSIS: Major depressive disorder moderate, panic attacks, rule out alcohol use disorder PLAN: Continue one-to-one. Transfer to psychiatric unit when medically stable.. 09/27/19 13:31
[2019-09-27] MEDS: SODIUM CHLORIDE 0.9% 1,000 ML IV SCH ×2 (14:26→20:13)
--- NOTE | 2019-09-27 14:40 | P.PN ---
Subjective Progress Note Date: 09/27/19 Principal diagnosis: Atrial fibrillation Patient was seen and examined. No acute events overnight. Patient reports lightheadedness yesterday as he was attempting to stand up. Patient reports that his metoprolol was recently increased from 25 mg to 50 mg by mouth twice a day on Thursday. He currently denies any dizziness. He denies any chest pain, shortness of breath or palpitations. No nausea or vomiting. No fever or chills. Objective - Vital Signs Vital signs: Vital Signs Temp 98.4 F 09/27/19 08:00 Pulse 102 H 09/27/19 12:00 Resp 18 09/27/19 12:00 BP 105/76 09/27/19 12:00 Pulse Ox 99 09/27/19 08:00 Intake & Output 09/26/19 09/27/19 09/27/19 18:59 06:59 18:59 Weight 85 kg 85 kg Other: Voiding Method Toilet # Voids 1 - Exam General: [non toxic], [no distress], [appears at stated age] Derm: [warm], [dry] Head: [atraumatic], [normocephalic], [symmetric] Eyes: [EOMI], [no lid lag], [anicteric sclera] Mouth: [no lip lesion], [mucus membranes moist] Cardiovascular: [S1S2 irregular], [no murmur], [positive posterior tibial pulse bilateral], Lungs: [CTA bilateral], [no rhonchi, no rales] , [no accessory muscle use] Abdominal: [soft], [ nontender to palpation], [no guarding], [no appreciable organomegaly] Ext: [no gross muscle atrophy], [no edema], [no contractures] Neuro: [ CN II-XI grossly intact], [no focal neuro deficits] Psych: [Alert], [oriented], [appropriate affect] - Labs CBC & Chem 7: 09/27/19 06:58 09/27/19 06:58 Labs: Abnormal Lab Results - Last 24 Hours (Table) 09/27/19 09/27/19 Range/Units 06:58 06:58 MCV 100.3 H (80.0-100.0) fL Sodium 134 L (137-145) mmol/L Total Bilirubin 2.5 H (0.2-1.3) mg/dL Assessment and Plan Assessment: A. fib with RVR Orthostatic hypotension Hypothyroidism Dyslipidemia Chronic alcohol use Depression and anxiety Patient is currently rate controlled in the low 100s. Cardiology has evaluated the patient and echocardiogram has been ordered. He will be continued on metoprolol 50 mg by mouth twice a day. Eliquis has been restarted for anticoagulation. Orthostatic vitals are positive. He will be started on normal saline at 100 mL/h. Plans to repeat orthostatic vitals tomorrow. Synthroid is resumed for hypothyroidism. Continue Lipitor for dyslipidemia. Patient's last drink was in June and he is out of the window for alcohol withdrawal. Psychiatry has been consulted for depression and anxiety. Continue one-to-one sitter at this time. [Patient admitted for A. fib with RVR. Currently rate controlled. Started on IVF for orthostasis. Plans for possible DC back to mental health if patient continues to improve tomorrow and blood pressure can maintain on current dose of metoprolol.]
[2019-09-27] MEDS ORDERED: traZODone HCL 100 MG TAB PO SCH (21:00)
[2019-09-28] MEDS: SODIUM CHLORIDE 0.9% 1,000 ML IV SCH (04:26)
[2019-09-28] MEDS: LEVOTHYROXINE 25 MCG TAB PO SCH (06:13)
[2019-09-28] MEDS: APIXABAN 5 MG TAB PO SCH (09:18)
[2019-09-28] MEDS: ASPIRIN 81 MG PO SCH (09:18)
[2019-09-28] MEDS: METOPROLOL SUCCINATE (ER) 50 MG TAB.ER.24H PO SCH (09:18)
[2019-09-28] MEDS: ATORVASTATIN 10 MG TAB PO SCH (09:18)
[2019-09-28] MEDS: DULoxetine HCL 30 MG CAPSULE.DR PO SCH (09:19)
[2019-09-28 10:44] VITALS: TEMP 98.4
--- NOTE | 2019-09-28 13:39 | P.CON ---
Consult Note - . Consult date: 09/28/19 Assessment/Plan:: Clinical Problems: Major depressive disorder severe, alcohol use disorder Interim history: Due to medical record and interview the patient. Also spoke with his on the telephone. He complained that he did not sleep last night even after receiving 100 mg dose of trazodone. We discussed treatment options and agreed to a trial of Seroquel. He remains anxious about returning to the psychiatric unit. I spoke with his She expressed concerns about his mental state. She stated that she believes he has an alcohol problem and has been drinking for over 30 years. She believes that he stopped drinking in June of this year. She agrees that he is depressed and believes that has worsened since he stopped drinking. She confirmed that he made a suicidal statement about jumping into the pool to drown himself. We also talked about his handguns. She stated that she has removed the handguns from a house and gave them to a friend. Gio is unaware that she removed the handguns and does not know where she secured them. Mental status exam: He presented as a anxious and depressed elderly male who is laying comfortably in bed. He made eye contact and attended the interview. He was disappointed when I recommended that he return to the psychiatric unit when stable. He denied experiencing psychotic symptoms. Assessment: Remains depressed and has prominent insomnia unrelieved with trazodone 100 mg at bedtime. Plan: Continue Cymbalta 30 mg by mouth twice a day and titrated according to clinical response and tolerance. Begin Seroquel 50 mg at bedtime and titrated nightly to 150 mg at bedtime. Continue melatonin 5 mg at bedtime. Evaluate the need for dosing of alprazolam. Transfer to psychiatry when medically stable
--- NOTE | 2019-09-28 14:12 | P.PN ---
Subjective Progress Note Date: 09/28/19 Mr. dukes is a 69-year-old gentleman with history of chronic persistent atrial fibrillation, and hypertension, prior cardioversion 3 years ago follows with Dr. Alarcon at [facility]. Also has a history of mild CAD according to him by cardiac catheterization done twice. Initially admitted to mental health unit because of progressive anxiety insomnia and depression which he has noticed since quitting drinking around July 07. He was noted to have episodes of hypotension and was transferred to the telemetry floor. He was seen late last week at [facility] in the emergency department with atrial fibrillation. Patient feels he's been in atrial fibrillation for the last 7-10 days as he has noticed he is more winded and tires easily. He doesn't feel occasional palpitations. At the time of my examination, patient's resting comfortably in bed. He denies any chest discomfort, dyspnea, dizziness, edema, syncope. No episodes of hypotension since yesterday morning. He remains anticoagulated and is currently on metoprolol succinate 50 mg by mouth twice a day heart rate remains relatively well-controlled mostly in the 80s and 90s with occasional spikes around 110. Echocardiogram done yesterday showed mildly impaired LV systolic function with an ejection fraction between 45-50%, mild aortic valve sclerosis, trace to mild MR and mild TR. Objective - Vital Signs Vital signs: Vital Signs Temp 98.4 F 09/28/19 08:00 Pulse 82 09/28/19 12:00 Resp 18 09/28/19 12:00 BP 132/78 09/28/19 12:00 Pulse Ox 100 09/28/19 12:00 Intake & Output 09/27/19 09/28/19 09/28/19 18:59 06:59 18:59 Intake Total 477 118 Balance 477 118 Weight 85 kg 91.2 kg Intake: Oral 477 118 Other: Voiding Method Toilet Toilet Toilet # Voids 4 1 # Bowel Movements 1 - Exam PHYSICAL EXAMINATION: HEENT: Head is atraumatic, normocephalic. Pupils equal, round. Neck is supple. There is no elevated jugular venous pressure. HEART EXAMINATION: Heart sounds irregularly irregular, S1 and S2 normal. No murmur or gallop heard. CHEST EXAMINATION: Lungs are clear to auscultation. No chest wall tenderness is noted on palpation or with deep breathing. ABDOMEN: Soft, nontender. Bowel sounds are heard. No organomegaly noted. EXTREMITIES: 2+ peripheral pulses with no evidence of peripheral edema and no calf tenderness noted. NEUROLOGIC patient is awake, alert and oriented x3. . 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 From our standpoint patient is stable to be transferred back to mental health unit. He will follow-up with his primary obstetric anaesthetist Dr. Alarcon as an outpatient to discuss further intervention. SENIOR BENEFITS SPECIALIST note has been reviewed, I agree with a documented findings and plan of care. Patient was seen and examined.
[2019-09-28 17:29] VITALS: BP 118/64; PULSE 91; RESP 19
--- NOTE | 2019-09-28 17:40 | P.DS ---
Providers Date of admission: 09/26/19 23:01 Expected date of discharge: 09/28/19 Attending physician: Daja Chen MD Consults: 09/27/19 01:32 Consult Physician Routine Consulting Provider: Paul Clarke Consult Reason/Comments: Afib with RVR and hypotension Do you want consulting provider notified?: Yes 09/27/19 01:33 Consult Physician Routine Consulting Provider: Orlando Morgan Consult Reason/Comments: suicidal ideation Do you want consulting provider notified?: Yes Primary care physician: [facility] Course: The patient is a 69-year-old male with a PMH of A. fib on Eliquis, hypertension, hyperlipidemia, and hypothyroidism who presented to the ED initially on 09/25 with complaints of anxiety and insomnia along with depression and suicidal ideation. The patient was admitted to the mental health unit. Following admission however, the patient was noted to be hypotensive with a BP of 84/52 and a pulse of 120. The patient also reported feeling very dizzy upon standing. The patient was evaluated at the mental health unit where he noted palpitations and dizziness and denied chest discomfort or shortness of breath. He also denied nausea, vomiting, diaphoresis, weakness, numbness, tingling, or loss of consciousness. The patient reports that his Lopressor was recently increased from 25 mg twice a day to 50 mg twice a day and that he took his last dose earlier today and had also received a 25 mg Lopressor dose in the ED. Patient was rate controlled in the 100s while on the inpatient unit. Cardiology was consulted and recommended echocardiogram. He was continued on metoprolol 50 mg by mouth twice a day. Eliquis was restarted frantic regulation. Orthostatic vitals were obtained which were positive. He was then started on normal saline at 100 mL per hour. His lightheadedness resolved on day 2 of admission. Echocardiogram showed EF 45-50% with borderline concentric LVH. Cardiology cleared the patient for discharge. Psychiatry was consulted for continued treatment of depression with suicidal ideation. Patient was seen and examined. No acute events overnight. Patient denies any chest, shortness breath or palpitations. No nausea or vomiting. No fever or chills. Heart rate between 80 and 100s. He denies any dizziness. General: [non toxic], [no distress], [appears at stated age] Derm: [warm], [dry] Head: [atraumatic], [normocephalic], [symmetric] Eyes: [EOMI], [no lid lag], [anicteric sclera] Mouth: [no lip lesion], [mucus membranes moist] Cardiovascular: [S1S2 irregular], [no murmur], [positive posterior tibial pulse bilateral], Lungs: [CTA bilateral], [no rhonchi, no rales] , [no accessory muscle use] Abdominal: [soft], [ nontender to palpation], [no guarding], [no appreciable organomegaly] Ext: [no gross muscle atrophy], [no edema], [no contractures] Neuro: [ CN II-XI grossly intact], [no focal neuro deficits] Psych: [Alert], [oriented], [appropriate affect] A. fib with RVR Orthostatic hypotension Hypothyroidism Dyslipidemia Chronic alcohol use Depression and anxiety Patient is currently rate controlled in the 80s to low 100s. Cardiology has evaluated the patient and cleared the patient for discharge. Echocardiogram was obtained and as mentioned as above. He will be continued on metoprolol 50 mg by mouth twice a day. Eliquis has been restarted for anticoagulation. His lightheadedness has resolved and we will DC IVF and encourage hydration by mouth. Synthroid is resumed for hypothyroidism. Continue Lipitor for dyslipidemia. Patient's last drink was in June and he is out of the window for alcohol withdrawal. Psychiatry has been consulted for depression and anxiety. Patient is medically cleared for discharge to mental health unit. This complex discharge took about 35 minutes to complete. Pertinent Studies: Echocardiogram Patient Condition at Discharge: Stable Plan - Discharge Summary New Discharge Prescriptions: New Melatonin 5 mg PO HS PRN tablet PRN Reason: Insomnia QUEtiapine [SEROquel] 150 mg PO HS tab QUEtiapine [SEROquel] 100 mg PO HS tab QUEtiapine [SEROquel] 50 mg PO HS tab Continue Levothyroxine Sodium [Synthroid] 25 mcg PO DAILY Cholecalciferol [Vitamin D3 (25 Mcg = 1000 Iu)] 2,000 unit PO DAILY Metoprolol Succinate (ER) [Toprol XL] 50 mg PO BID Losartan/Hydrochlorothiazide [Hyzaar 100-25 Tablet] 1 tab PO DAILY Aspirin [Adult Low Dose Aspirin EC] 81 mg PO DAILY Apixaban [Eliquis] 5 mg PO BID DULoxetine HCL [Cymbalta] 30 mg PO BID ALPRAZolam [Xanax] 0.125 mg PO BID PRN PRN Reason: Anxiety Rosuvastatin Calcium 5 mg PO DAILY Discontinued Doxycycline Monohydrate [Doxycycline Ir-Dr] 40 mg PO DAILY Discharge Medication List Aspirin [Adult Low Dose Aspirin EC] 81 mg PO DAILY 09/04/16 [History] Cholecalciferol [Vitamin D3 (25 Mcg = 1000 Iu)] 2,000 unit PO DAILY 09/04/16 [History] Levothyroxine Sodium [Synthroid] 25 mcg PO DAILY 09/04/16 [History] Losartan/Hydrochlorothiazide [Hyzaar 100-25 Tablet] 1 tab PO DAILY 09/04/16 [History] Metoprolol Succinate (ER) [Toprol XL] 50 mg PO BID 09/04/16 [History] ALPRAZolam [Xanax] 0.125 mg PO BID PRN 09/26/19 [History] Apixaban [Eliquis] 5 mg PO BID 09/26/19 [History] DULoxetine HCL [Cymbalta] 30 mg PO BID 09/26/19 [History] Rosuvastatin Calcium 5 mg PO DAILY 09/26/19 [History] Melatonin 5 mg PO HS PRN tablet 09/28/19 [Rx] QUEtiapine [SEROquel] 50 mg PO HS tab 09/28/19 [Rx] QUEtiapine [SEROquel] 100 mg PO HS tab 09/28/19 [Rx] QUEtiapine [SEROquel] 150 mg PO HS tab 09/28/19 [Rx] Follow up Appointment(s)/Referral(s): Harshil Angeles MD [STAFF PHYSICIAN] - 1 Week Ted Roca MD [Primary Care Provider] - 1 Week Activity/Diet/Wound Care/Special Instructions: Diet: Low salt FU PCP within 3 days of DC. FU Cardiology within 1 week of DC. Transfer to [facility] Discharge Disposition: TRANSFER TO PSYCH HOSP/UNIT
[2019-09-28] MEDS ORDERED: QUEtiapine 50 MG TAB PO SCH (21:00)
[2019-09-29] MEDS ORDERED: QUEtiapine 100 MG TAB PO SCH (21:00)
[2019-09-30] MEDS ORDERED: QUEtiapine 100 MG TAB PO SCH (21:00)
== END 2019-09-28 19:18 | DRG 309 ==
LOC: 3SCARD 23:01
PROVIDERS: ADMIT Internal Medicine; ATTEND Internal Medicine
DX: I48.19 Other persistent atrial fibrillation (principal); F32.1 Major depressive disorder, single episode, moderate; E78.5 Hyperlipidemia, unspecified; E03.9 Hypothyroidism, unspecified; F41.9 Anxiety disorder, unspecified; I10 Essential (primary) hypertension; F51.05 Insomnia due to other mental disorder; I25.10 Atherosclerotic heart disease of native coronary artery without angina pectoris; F41.0 Panic disorder [episodic paroxysmal anxiety]; F10.10 Alcohol abuse, uncomplicated; I95.1 Orthostatic hypotension; I42.8 Other cardiomyopathies; Z79.01 Long term (current) use of anticoagulants; Z79.82 Long term (current) use of aspirin; Z79.890 Hormone replacement therapy; Z79.899 Other long term (current) drug therapy; Z87.891 Personal history of nicotine dependence; Z98.890 Other specified postprocedural states
CPT/HCPCS: 80053; 83735; 84443; 85027; 93306

== ENCOUNTER 2019-09-28 18:50 | Inpatient (IN) | payer MEDICARE ==
[2019-09-28] MEDS ORDERED: MAGNESIUM HYDROXIDE 2,400 MG/10 ML CUP PO PRN (19:28)
[2019-09-28] MEDS ORDERED: MAG HYDROX/AL HYDROX/SIMETH 30 ML CUP PO PRN (19:28)
[2019-09-28] MEDS ORDERED: ACETAMINOPHEN TAB 325 MG TAB PO PRN (19:28)
[2019-09-28] MEDS ORDERED: MELATONIN 5 MG TABLET PO PRN (19:31)
[2019-09-28] MEDS ORDERED: ALPRAZolam 0.25 MG TAB PO PRN (19:31)
[2019-09-28] MEDS ORDERED: QUEtiapine 50 MG TAB PO SCH (21:00)
[2019-09-28] MEDS: DULoxetine HCL 30 MG CAPSULE.DR PO SCH (21:29)
[2019-09-28] MEDS: APIXABAN 5 MG TAB PO SCH (21:29)
[2019-09-28] MEDS: METOPROLOL SUCCINATE (ER) 50 MG TAB.ER.24H PO SCH (21:29)
[2019-09-29] MEDS: LEVOTHYROXINE 25 MCG TAB PO SCH (06:05)
--- NOTE | 2019-09-29 07:19 | P.CONS ---
History of Present Illness - Reason for Consult Consult date: 09/29/19 - History of Present Illness The patient is a 69 year-old male with a PMH of A. fib on Eliquis, hypertension, hyperlipidemia, and hypothyroidism who was admitted to the mental health unit initially with depression and suicidal ideation and was transferred to the medicine service due to A. fib with RVR and cardiology consult. The patient was subsequently transferred back to the mental health unit where he was seen and evaluated earlier today. The patient reported feeling well and denied any active complaints. He denied chest pain, shortness breath, cough, fever, or chills. He also denied abdominal pain, nausea, vomiting, or diarrhea. Review of Systems Pertinent positives and negatives as discussed in HPI, a complete review of systems was performed and all other systems are negative. Past Medical History Past Medical History: Atrial Fibrillation, Hyperlipidemia, Hypertension, Thyroid Disorder History of Any Multi-Drug Resistant Organisms: None Reported Past Surgical History: Orthopedic Surgery Additional Past Surgical History / Comment(s): achilles tendon repair, carpal tunnel R wrist, veronica knee scope Past Anesthesia/Blood Transfusion Reactions: No Reported Reaction Past Psychological History: Anxiety, Depression Smoking Status: Former smoker Past Alcohol Use History: None Reported Past Drug Use History: None Reported - Past Family History Mother Family Medical History: No Reported History Medications and Allergies Home Medications Medication Instructions Recorded Confirmed Type Aspirin [Adult Low Dose Aspirin EC] 81 mg PO DAILY 09/04/16 09/29/19 History Cholecalciferol [Vitamin D3 (25 2,000 unit PO DAILY 09/04/16 09/29/19 History Mcg = 1000 Iu)] Levothyroxine Sodium [Synthroid] 25 mcg PO DAILY 09/04/16 09/29/19 History Losartan/Hydrochlorothiazide 1 tab PO DAILY 09/04/16 09/29/19 History [Hyzaar 100-25 Tablet] Metoprolol Succinate (ER) [Toprol 50 mg PO BID 09/04/16 09/29/19 History XL] ALPRAZolam [Xanax] 0.125 mg PO BID PRN 09/26/19 09/29/19 History Apixaban [Eliquis] 5 mg PO BID 09/26/19 09/29/19 History DULoxetine HCL [Cymbalta] 30 mg PO BID 09/26/19 09/29/19 History Rosuvastatin Calcium 5 mg PO DAILY 09/26/19 09/29/19 History Melatonin 5 mg PO HS PRN tablet 09/28/19 09/29/19 Rx QUEtiapine [SEROquel] 50 mg PO HS tab 09/28/19 09/29/19 Rx QUEtiapine [SEROquel] 100 mg PO HS tab 09/28/19 09/29/19 Rx QUEtiapine [SEROquel] 150 mg PO HS tab 09/28/19 09/29/19 Rx Allergies Allergy/AdvReac Type Severity Reaction Status Date / Time No Known Allergies Allergy Verified 09/26/19 14:04 Physical Exam Vitals: Vital Signs Temp Pulse Resp BP Pulse Ox 09/28/19 21:31 98.2 F 09/28/19 19:34 97.5 F L 99 16 136/78 100 Intake and Output 09/28/19 09/29/19 09/29/19 22:59 06:59 14:59 Other: Weight 91.2 kg General: non toxic, no distress, appears at stated age, normal weight Derm: no unusual rashes/lesions no unusual ecchymoses, warm, dry Head: atraumatic, normocephalic, symmetric Eyes: EOMI, no lid lag, anicteric sclera, pupils equal round reactive to light ENT: Nose and ears atraumatic, no thrush, no pharyngeal erythema Neck: No thyromegaly, no cervical lymphadenopathy, trachea midline, supple Mouth: no lip lesion, mucus membranes moist Cardiovascular: S1S2 reg, no murmur, positive posterior tibial pulse bilateral, no edema, capillary refill less than 2 seconds Lungs: CTA bilateral, no rhonchi, no rales , no accessory muscle use Abdominal: soft, nontender to palpation, no guarding, no appreciable org anomegaly, normal bowel sounds Ext: no gross muscle atrophy, muscle strength 5 out of 5 in all 4 extremities grossly, no contractures, Neuro: CN II-XI grossly intact, light touch intact all 4 extremities, finger to nose within normal limits, Psych: Alert, oriented, appropriate affect Assessment and Plan Plan: A. fib -Continue with Eliquis and Lopressor Hypertension, hyperlipidemia, hypothyroidism -Continue with levothyroxine, Hyzaar, Crestor Depression and suicidal ideation -As per psychiatry Thank you for allowing us to participate in the care of this patient. We will follow peripherally. Do not hesitate to contact us with questions. Someone can be reached from the [facility] hospitalist group at all hours of the day at [phone].
[2019-09-29] MEDS: ATORVASTATIN 10 MG TAB PO SCH (08:36)
[2019-09-29] MEDS: APIXABAN 5 MG TAB PO SCH ×2 (08:36→21:30)
[2019-09-29] MEDS: CHOLECALCIFEROL 1,000 UNIT TAB PO SCH (08:36)
[2019-09-29] MEDS: DULoxetine HCL 30 MG CAPSULE.DR PO SCH ×2 (08:36→21:30)
[2019-09-29] MEDS: ASPIRIN 81 MG PO SCH (08:36)
[2019-09-29] MEDS: METOPROLOL SUCCINATE (ER) 50 MG TAB.ER.24H PO SCH ×2 (08:37→21:30)
[2019-09-29] MEDS: LOSARTAN-HCTZ 50-12.5 MG 1 EACH TAB PO SCH (08:37)
--- NOTE | 2019-09-29 13:23 | P.HP ---
Psychiatric H&P - . H&P Date: 09/29/19 History & Physical: IDENTIFYING DATA: He is a 69-year-old male who presented to the ED on 09/25/2022 by his with complaints of depression, anxiety and suicidal ideation. He was initially admitted to the psychiatric unit transferred the same day to medicine for evaluation and management of atrial fibrillation. HISTORY OF PRESENT ILLNESS: The EPS nurse spoke to him and his separately. He reported increasing depression since he was laid off from his job with [employer] in June. Because he was thinking about retiring in October he decided to apply for assisted. He attributes increasing depression an d anxiety as well as increased use of alcohol to his assisted and his concerns about his family. He specifically talked about his 2 daughters who are both laid off from work as a result of the epidemic. He describes symptoms of depression and anxiety as well as intermittent panic attacks. His depression progressed to in July where he was not eating and lost approximately 30 pounds. His primary care provider at been prescribing Celexa but when his depression worsened started Cymbalta. The primary also prescribed Xanax up to 2 mg at bedtime for sleep. The patient complained that after his primary taper him off of Xanax he was unable to sleep. He alleges that he did not sleep for 3 days prior to admission. He minimized his suicidality stating that he told his before admission that he felt like taking all of his medications. However, when the EPS nurse spoke to his . She talked about the weight loss, depression and poor sleep and recurrent suicidal thoughts with a plan to tie weight around his waist and jump into the deep end of a pool. I spoke with his confirmed this suicidal statement. She was concerned about his insomnia and weight loss. She confirms that for 3 days prior to admission he did not sleep. She believes that he lost 30 pounds since he retired. His minimized his use of alcohol alleging that in the past he would drink "1-2 drinks." However his described fairly consistent alcohol use restricting to 2-4 drinks per night on a regular basis. 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 On the medicine unit, trazodone 100 mg a at bedtime was ineffective for sleep. We began a sitter" with 50 mg at bedtime. This morning her reports that he slept throughout the night but has a "hangover". He denied periods of elevated mood or sustained irritability suggestive of mackenzie or hypomania. He denied obsessions or compulsions. He denied psychotic symptoms such as auditory, visual or olfactory hallucinations, ideas reference, thought insertion, thought broadcasting or thought control. PAST PSYCHIATRIC HISTORY: He met with a therapist "years ago" following the divorce from his first . His primary provider has prescribed Celexa for many years for treatment of panic attacks. He denied psychiatric hospitalizations. PAST MEDICAL HISTORY: See medical admission and history. ALLERGIES: NO KNOWN DRUG ALLERGIES SUBSTANCE USE HISTORY: He denied a history of drug use. He described a social use of alcohol but an increase in alcohol and last 2-3 months prior to admission. During this time his is complained about his alcohol use. He is never been in atreatment program. FAMILY PSYCHIATRIC/SUBSTANCE USE HISTORY: He is unaware of family history of mental health or substance use problems. LEGAL HISTORY: None SOCIAL HISTORY: Was born and raised in [place] [facility] [place] [facility]. He graduated high school and received a bachelor's degree and criminal justice administration from [employer]. 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 This is his second marriage. He has one child from his first marriage and his has 3 children from her first marriage. MENTAL STATUS EXAM: He presented as a tall thin pale appearing elderly male who was pleasant on approach. She made eye contact and attended to the interview. He had no distinguishing features or prominent physical abnormalities. He had a blunted but bright facial expression. He was alert and oriented to person, place and time. He showed slight psychomotor retardation but no abnormal involuntary movements. Speech was spontaneous with decreased rate and rhythm. His affect was dysphoric with anxiety and depression. He denied suicidal ideation and wishes. He denied homicidal ideation. He did not express feelings of hopelessness, helplessness or worthlessness. He ruminated about his insomnia and his concerns about returning to the psychiatric unit. He did not express ideas reference, paranoid ideation or delusions. His thinking was abstract and associations were coherent, logical and goal directed. He denied hallucinations did not appear to be responding to internal stimuli. STRENGTHS: Stable housing, stable income, supportive family, relatively good health WEAKNESSES: Recent assisted, history of alcohol use problems IMPRESSION: He is a 69-year-old male who has history of a panic disorder. He presented to the emergency room with depression, suicidal ideation, increased anxiety and panic attacks. He minimized his suicidality but his described suicidal thoughts and plans. He describes on the symptoms suggestive of major depressive disorder as well as infrequent panic attacks. He should be treated on an inpatient basis with her combination of psychopharmacology and multimodal therapy. PRINCIPLE DIAGNOSIS: Major depressive disorder moderate, panic attacks, rule out alcohol use disorder RECOMMENDATION: Admitted to the psychiatric unit. Safety precautions. Consult medicine for initial physical exam and medical history. tie worker completed initial psychosocial assessment coordinate discharge and aftercare services. Continue duloxetine 30 mg by mouth twice a day and titrated according to clinical response and tolerance. Increase Seroquel to 100 mg at bedtime tonight for sleep and augmentation of antidepressant. Ativan 1 mg by mouth 3 times a day when necessary for anxiety. Continue medications for his medical illnesses including alcoholic was 5 mg twice a day, aspirin 81 mg daily, Lipitor 10 mg daily, vitamin D3 2000 units daily, Hyzaar 50-12.52 tablets daily, Synthroid 25 g daily and Toprol-XL 50 mg twice a day. Encourage participation in therapeutic groups and activities. Evaluate clinical status response to treatment daily basis. Allergies Allergy/AdvReac Type Severity Reaction Status Date / Time No Known Allergies Allergy Verified 09/26/19 14:04 Vital Signs Temp 98.7 F 09/29/19 12:47 Pulse 127 H 09/29/19 08:39 Resp 20 09/29/19 08:39 BP 110/69 09/29/19 08:39 Pulse Ox 98 09/29/19 08:39 Intake & Output 09/28/19 09/29/19 09/29/19 18:59 06:59 18:59 Weight 91.2 kg 09/29/19 13:13
[2019-09-29] MEDS ORDERED: QUEtiapine 100 MG TAB PO SCH (21:00)
[2019-09-30] MEDS: LEVOTHYROXINE 25 MCG TAB PO SCH (05:30)
[2019-09-30 05:56] VITALS: RESP 18
[2019-09-30 08:29] VITALS: BP 108/72; PULSE 113
[2019-09-30] MEDS: METOPROLOL SUCCINATE (ER) 50 MG TAB.ER.24H PO SCH (08:29)
[2019-09-30] MEDS: ATORVASTATIN 10 MG TAB PO SCH (08:29)
[2019-09-30] MEDS: ASPIRIN 81 MG PO SCH (08:29)
[2019-09-30] MEDS: LOSARTAN-HCTZ 50-12.5 MG 1 EACH TAB PO SCH (08:29)
[2019-09-30] MEDS: CHOLECALCIFEROL 1,000 UNIT TAB PO SCH (08:29)
[2019-09-30] MEDS: DULoxetine HCL 30 MG CAPSULE.DR PO SCH (08:29)
[2019-09-30] MEDS: APIXABAN 5 MG TAB PO SCH (08:29)
--- NOTE | 2019-09-30 13:10 | P.DS ---
Providers Date of admission: 09/28/19 19:21 Attending physician: Orlando Morgan MD Consults: 09/28/19 19:28 Consult Physician Routine Consulting Provider: [facility] Consult Reason/Comments: H & P and medical care Do you want consulting provider notified?: Yes Primary care physician: Ted Graves - Discharge Diagnosis(es) (1) Major depressive disorder, recurrent severe without psychotic features Current Visit: Yes Status: Acute Priority: Medium (2) Panic attacks Current Visit: Yes Status: Acute Priority: Low (3) Alcohol use disorder, moderate, in early remission Current Visit: Yes Status: Chronic Priority: Medium Hospital Course: He is a 69-year-old male who presented to the ED on 09/25/2022 by his with complaints of depression, anxiety and suicidal ideation. He was initially admitted to the psychiatric unit transferred the same day to medicine for evaluation and management of atrial fibrillation. On presentation to the ED, EPS nurse spoke to him and his separately. He reported increasing depression since he was laid off from his job with [employer] in June. Because he was thinking about retiring in October he decided to apply for longterm. He attributes increasing depression and anxiety as well as increased use of alcohol to his longterm and his concerns about his family. He specifically talked about his 2 daughters who are both laid off from work as a result of the epidemic. He describes symptoms of depression and anxiety as well as intermittent panic attacks. His depression progressed to in July where he was not eating and lost approximately 30 pounds. His primary care provider at been prescribing Celexa but when his depression worsened started Cymbalta. The primary also prescribed Xanax up to 2 mg at bedtime for sleep. The patient complained that after his primary taper him off of Xanax he was unable to sleep. He alleges that he did not sleep for 3 days prior to admission. He minimized his suicidality stating that he told his before admission that he felt like taking all of his medications. However, when the EPS nurse spoke to his . She talked about the weight loss, depression and poor sleep and recurrent suicidal thoughts with a plan to tie weight around his waist and jump into the deep end of a pool. I spoke with his confirmed this suicidal statement. She was concerned about his insomnia and weight loss. She confirms that for 3 days prior to admission he did not sleep. She believes that he lost 30 pounds since he retired. His minimized his use of alcohol alleging that in the past he would drink "1-2 drinks." However his described fairly consistent alcohol use restricting to 2-4 drinks per night on a regular basis. 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 On the medicine unit, trazodone 100 mg a at bedtime was ineffective for sleep. We began a sitter" with 50 mg at bedtime. This morning her reports that he slept throughout the night but has a "hangover". He denied periods of elevated mood or sustained irritability suggestive of mackenzie or hypomania. He denied obsessions or compulsions. He denied psychotic symptoms such as auditory, visual or olfactory hallucinations, ideas reference, thought insertion, thought broadcasting or thought control. We admitted him initially to the psychiatric unit on 09/26/2019. On arrival to the unit EKG showed atrial fibrillation with a ventricular rate of 124. His blood pressure dropped to 84/52 with a pulse of 120 and she was transferred to medicine service for the management of hypertension. Once he is medically cleared he was transferred back to the psychiatric unit we provided a copy a biopsychosocial assessment. I also spoke with his who gave a history of his alcohol use, anxiety and depression. She affirmed that he stopped drinking alcohol in June 2019. His depression began after he retired from work but seemed to worsen after she discontinued Xanax. She also confirmed that she had remote handguns from the home. We treated depression and insomnia with increasing doses of Seroquel. He is able to sleep restfully through the night at 50 mg; at 100 mg he complained a marked sedation during the daytime. We increase the duloxetine to 90 mg per day. He participated actively in therapeutic groups and activities. He denied experiencing suicidal thoughts, ideation or plan. His mood brightened when he is able to sleep through the night. He looks forward to resuming outpatient treatment and social work administrator assisted with referral to [facility] counseling centers. Time of discharge he presented as a casually groomed elderly male who was pleasant on approach. He made eye contact and attended the interview. He had no prominent physical abnormalities or distinguishing features. He had a blunted but bright facial expression. He was alert and oriented to person, place and time. He had no abnormality of psychomotor activity. His speech was spontaneous with normal rate, rhythm and volume. His affect was blunted but stable and appropriate. He denied suicidal ideation and wishes. He denied homicidal ideation. He denied feeling hopeless, helpless or worthless. He didn't express ideas reference, paranoid ideation or delusions. His thinking was abstract and associations were coherent, logical and goal directed. He denied hallucinations and did not appear to responding to internal stimuli. Patient Condition at Discharge: Stable Plan - Discharge Summary New Discharge Prescriptions: New DULoxetine HCL [Cymbalta] 60 mg PO HS #30 capsule. QUEtiapine [SEROquel] 50 mg PO HS #30 tab DULoxetine HCL [Cymbalta] 30 mg PO DAILY #30 capsule.[address] Whelan Levothyroxine Sodium [Synthroid] 25 mcg PO DAILY Cholecalciferol [Vitamin D3 (25 Mcg = 1000 Iu)] 2,000 unit PO DAILY Metoprolol Succinate (ER) [Toprol XL] 50 mg PO BID Losartan/Hydrochlorothiazide [Hyzaar 100-25 Tablet] 1 tab PO DAILY Aspirin [Adult Low Dose Aspirin EC] 81 mg PO DAILY Apixaban [Eliquis] 5 mg PO BID Rosuvastatin Calcium 5 mg PO DAILY Melatonin 5 mg PO HS PRN tablet PRN Reason: Insomnia Discontinued DULoxetine HCL [Cymbalta] 30 mg PO BID ALPRAZolam [Xanax] 0.125 mg PO BID PRN PRN Reason: Anxiety QUEtiapine [SEROquel] 150 mg PO HS tab QUEtiapine [SEROquel] 100 mg PO HS tab QUEtiapine [SEROquel] 50 mg PO HS tab Discharge Medication List Aspirin [Adult Low Dose Aspirin EC] 81 mg PO DAILY 09/04/16 [History] Cholecalciferol [Vitamin D3 (25 Mcg = 1000 Iu)] 2,000 unit PO DAILY 09/04/16 [History] Levothyroxine Sodium [Synthroid] 25 mcg PO DAILY 09/04/16 [History] Losartan/Hydrochlorothiazide [Hyzaar 100-25 Tablet] 1 tab PO DAILY 09/04/16 [History] Metoprolol Succinate (ER) [Toprol XL] 50 mg PO BID 09/04/16 [History] Apixaban [Eliquis] 5 mg PO BID 09/26/19 [History] Rosuvastatin Calcium 5 mg PO DAILY 09/26/19 [History] Melatonin 5 mg PO HS PRN tablet 09/28/19 [Rx] DULoxetine HCL [Cymbalta] 30 mg PO DAILY #30 capsule. 09/30/19 [Rx] DULoxetine HCL [Cymbalta] 60 mg PO HS #30 capsule. 09/30/19 [Rx] QUEtiapine [SEROquel] 50 mg PO HS #30 tab 09/30/19 [Rx] Discharge Disposition: HOME SELF-CARE
[2019-09-30 13:19] VITALS: TEMP 97.8
[2019-09-30] MEDS ORDERED: DULoxetine HCL 60 MG CAPSULE.DR PO SCH (21:00)
[2019-09-30] MEDS ORDERED: QUEtiapine 50 MG TAB PO SCH ×2 (21:00)
[2019-10-01] MEDS ORDERED: DULoxetine HCL 30 MG CAPSULE.DR PO SCH (09:00)
== END 2019-09-30 14:50 | disposition home or self-care (01) | DRG 885 ==
LOC: 3MHU 19:21
PROVIDERS: ADMIT Psychiatry & Neurology Psychiatry; ATTEND Psychiatry & Neurology Psychiatry
DX: F33.2 Major depressive disorder, recurrent severe without psychotic features (principal); R45.851 Suicidal ideations; I48.91 Unspecified atrial fibrillation; G47.00 Insomnia, unspecified; F10.21 Alcohol dependence, in remission; F41.0 Panic disorder [episodic paroxysmal anxiety]; I10 Essential (primary) hypertension; E78.5 Hyperlipidemia, unspecified; E03.9 Hypothyroidism, unspecified; Z79.82 Long term (current) use of aspirin; Z79.899 Other long term (current) drug therapy; Z98.890 Other specified postprocedural states; Z87.891 Personal history of nicotine dependence; Z79.890 Hormone replacement therapy

== ENCOUNTER 2020-08-24 16:04 | Observation (INO) | payer MEDICARE ==
[2020-08-24] MEDS ORDERED: SODIUM CHLORIDE 0.9% 1,000 ML IV STA (16:18)
[2020-08-24 16:33] LABS: Basophils % (A) 0 %; Eosinophils # (A) 0.1 k/uL (0-0.7); Eosinophils % (A) 2 %; HCT 44.1 % (39.0-53.0); HGB 15.7 gm/dL (13.0-17.5); Lymphocytes # (A) 1.3 k/uL (1.0-4.8); Lymphocytes % (A) 28 %; MCH 33.7 pg (25.0-35.0); MCHC 35.5 g/dL (31.0-37.0); Mean Platelet Volume 6.9; Monocytes # (A) 0.3 k/uL (0-1.0); Monocytes % (A) 6 %; Neutrophils # (A) 2.9 k/uL (1.3-7.7); Neutrophils % (A) 62 %; Platelet Count 163 k/uL (150-450); RBC 4.64 m/uL (4.30-5.90); RDW 12.4 % (11.5-15.5); WBC 4.7 k/uL (3.8-10.6)
[2020-08-24 16:44] LABS: ALT 21 U/L (4-49); AST 20 U/L (17-59); Acetaminophen <10.0 ug/mL; African American GFR (CKD) 80 (>60 ml/min/1.73 sqM); Albumin 3.9 g/dL (3.5-5.0); Alcohol <10 mg/dL; Alkaline Phosphatase 53 U/L (38-126); Anion Gap 6 mmol/L; Blood Urea Nitrogen 19 mg/dL (9-20); Calcium 9.1 mg/dL (8.4-10.2); Carbon Dioxide 25 mmol/L (22-30); Chloride 104 mmol/L (98-107); Creatine Kinase 35 U/L (55-170); Glucose 131 mg/dL (74-99); Non-African American GFR(CKD) 69 (>60 ml/min/1.73 sqM); Potassium 4.8 mmol/L (3.5-5.1); Salicylate <1.0 mg/dL; Sodium 135 mmol/L (137-145); Total Bilirubin 1.9 mg/dL (0.2-1.3); Total Protein 5.9 g/dL (6.3-8.2)
[2020-08-24 19:52] LABS: Amphetamine Screen,Urine Not Detected (NotDetected); Barbiturate Screen,Urine Not Detected (NotDetected); Benzodiazepines Screen,Urine Not Detected (NotDetected); Cocaine Screen,Urine Not Detected (NotDetected); Methadone Screen, Urine Not Detected (NotDetected); Opiate Screen,Urine Not Detected (NotDetected); Oxycodone Screen, Urine Detected (NotDetected); Phencyclidine Screen,Urine Not Detected (NotDetected); Tricyclic Antidepressant,Urine Detected (NotDetected); Urn Cannabinoid Scrn Not Detected (NotDetected)
[2020-08-24 20:04] LABS: Appearance,Urine Clear (Clear); Bilirubin,Urine Negative (Negative); Blood,Urine Negative (Negative); Color,Urine Yellow; Glucose,Urine (UA) Negative (Negative); Ketones,Urine Negative (Negative); Leukocyte Esterase,Urine Negative (Negative); Nitrite,Urine Negative (Negative); PH, Urine 5.5 (5.0-8.0); Protein,Urine Trace (Negative); Specific Gravity,Urine 1.024 (1.001-1.035); Urobilinogen,Urine <2.0 mg/dL (<2.0)
[2020-08-24] MEDS ORDERED: CALCIUM GLUCONATE 2 GM in SODIUM CHLORIDE 0.9% 100 ML IVPB ONE (20:08)
[2020-08-24] MEDS ORDERED: NALOXONE 0.4 MG/ML 1 ML VIAL IV PRN (20:16)
--- NOTE | 2020-08-24 20:16 | ED ---
Overdose HPI - General Chief Complaint: Overdose Stated Complaint: Intentional OD Time Seen by Provider: 08/24/20 16:17 Source: patient, family, EMS Mode of arrival: EMS Limitations: no limitations - History of Present Illness Initial Comments: Gio is a 70yo M who presents to the ER after an apparent overdose at home. Patient reports that between 9-10am this morning, he took 10 Catapress, 10 Seroquel, Oxycodone and Metoprolol. Patient states that this was a suicide attempt. Patient has attempted suicide by overdose in the past. - Related Data Home Medications Medication Instructions Recorded Confirmed Aspirin [Adult Low Dose Aspirin EC] 81 mg PO DAILY 09/04/16 09/29/19 Cholecalciferol [Vitamin D3 (25 2,000 unit PO DAILY 09/04/16 09/29/19 Mcg = 1000 Iu)] Levothyroxine Sodium [Synthroid] 25 mcg PO DAILY 09/04/16 09/29/19 Losartan/Hydrochlorothiazide 1 tab PO DAILY 09/04/16 09/29/19 [Hyzaar 100-25 Tablet] Metoprolol Succinate (ER) [Toprol 50 mg PO BID 09/04/16 09/29/19 XL] Apixaban [Eliquis] 5 mg PO BID 09/26/19 09/29/19 Rosuvastatin Calcium 5 mg PO DAILY 09/26/19 09/29/19 Previous Rx's Medication Instructions Recorded Melatonin 5 mg PO HS PRN tablet 09/28/19 DULoxetine HCL [Cymbalta] 30 mg PO DAILY #30 capsule. 09/30/19 DULoxetine HCL [Cymbalta] 60 mg PO HS #30 capsule. 09/30/19 QUEtiapine [SEROquel] 50 mg PO HS #30 tab 09/30/19 Allergies Allergy/AdvReac Type Severity Reaction Status Date / Time No Known Allergies Allergy Verified 09/26/19 14:04 Review of Systems ROS Statement: Those systems with pertinent positive or pertinent negative responses have been documented in the HPI. ROS Other: All systems not noted in ROS Statement are negative. Past Medical History Past Medical History: Atrial Fibrillation, Hyperlipidemia, Hypertension, Thyroid Disorder History of Any Multi-Drug Resistant Organisms: None Reported Past Surgical History: Orthopedic Surgery Additional Past Surgical History / Comment(s): achilles tendon repair, carpal tunnel R wrist, veronica knee scope Past Anesthesia/Blood Transfusion Reactions: No Reported Reaction Past Psychological History: Anxiety, Depression Past Alcohol Use History: None Reported Past Drug Use History: None Reported - Past Family History Mother Family Medical History: No Reported History General Exam - General Exam Comments Initial Comments: Physical Exam GENERAL: Patient is well-developed and well-nourished. Patient is nontoxic and well-hydrated and is in no distress. HENT: Normocephalic, Atraumatic. EYES: PERRL, EOMI PULMONARY: Unlabored respirations. CARDIOVASCULAR: RRR Warm and well perfused extremities ABDOMEN: Non-distended SKIN: No rashes or bruising : Deferred NEUROLOGIC: Alert and oriented Normal speech Normal gait MUSCULOSKELETAL: Moving all extremities with no apparent injury PSYCHIATRIC: Suicidal Limitations: no limitations Course Vital Signs 08/24/20 08/24/20 08/24/20 16:08 17:32 19:30 Temperature 98.0 F Pulse Rate 92 89 93 Respiratory 16 12 12 Rate Blood Pressure 97/73 91/73 132/95 O2 Sat by Pulse 98 100 100 Oximetry Medical Decision Making - Medical Decision Making Patient was seen and evaluated history was obtained from patient and review of medical record Overdose workup was initiated next and x-ray and EKG was obtained due to overdose, EKG obtained at 1620, rate is 98 rhythm does not appear to have a P- wave before each QRS therefore is an accelerated junctional rhythm, there is no VA interval, QRS is narrow 100 QTc is prolonged at 513 and compared to previous or significant change in intervals and rhythm. No signs of ischemia or infarction. Labs were obtained Patient care was discussed with [facility] recommended optimization of calcium and magnesium Repeat EKG was obtained She care was discussed with Dr. Omalley who accepts admission for repeat labs and EKG in morning and consult to psych - Lab Data Result diagrams: 08/24/20 16:18 08/24/20 16:18 Lab Results 08/24/20 08/24/20 08/24/20 Range/Units 16:18 16:18 Unknown WBC 4.7 (3.8-10.6) k/uL RBC 4.64 (4.30-5.90) m/uL Hgb 15.7 (13.0-17.5) gm/dL Hct 44.1 (39.0-53.0) % MCV 95.0 (80.0-100.0) fL MCH 33.7 (25.0-35.0) pg MCHC 35.5 (31.0-37.0) g/dL RDW 12.4 (11.5-15.5) % Plt Count 163 (150-450) k/uL MPV 6.9 Neutrophils % 62 % Lymphocytes % 28 % Monocytes % 6 % Eosinophils % 2 % Basophils % 0 % Neutrophils # 2.9 (1.3-7.7) k/uL Lymphocytes # 1.3 (1.0-4.8) k/uL Monocytes # 0.3 (0-1.0) k/uL Eosinophils # 0.1 (0-0.7) k/uL Basophils # 0.0 (0-0.2) k/uL Sodium 135 L (137-145) mmol/L Potassium 4.8 (3.5-5.1) mmol/L Chloride 104 (98-107) mmol/L Carbon Dioxide 25 (22-30) mmol/L Anion Gap 6 mmol/L BUN 19 (9-20) mg/dL Creatinine 1.09 (0.66-1.25) mg/dL Est GFR (CKD-EPI)AfAm 80 (>60 ml/min/1.73 sqM) Est GFR (CKD-EPI)NonAf 69 (>60 ml/min/1.73 sqM) Glucose 131 H (74-99) mg/dL Calcium 9.1 (8.4-10.2) mg/dL Total Bilirubin 1.9 H (0.2-1.3) mg/dL AST 20 (17-59) U/L ALT 21 (4-49) U/L Alkaline Phosphatase 53 (38-126) U/L Creatine Kinase 35 L (55-170) U/L Total Protein 5.9 L (6.3-8.2) g/dL Albumin 3.9 (3.5-5.0) g/dL Urine Color Yellow Urine Appearance Clear (Clear) Urine pH 5.5 (5.0-8.0) Ur Specific [place] 1.024 (1.001-1.035) Urine Protein Trace H (Negative) Urine Glucose (UA) Negative (Negative) Urine Ketones Negative (Negative) Urine Blood Negative (Negative) Urine Nitrite Negative (Negative) Urine Bilirubin Negative (Negative) Urine Urobilinogen <2.0 (<2.0) mg/dL Ur Leukocyte Esterase Negative (Negative) Salicylates <1.0 mg/dL Urine Opiates Screen Not Detected (NotDetected) Ur Oxycodone Screen Detected H (NotDetected) Urine Methadone Screen Not Detected (NotDetected) Ur Propoxyphene Screen Not Detected (NotDetected) Acetaminophen <10.0 ug/mL Ur Barbiturates Screen Not Detected (NotDetected) U Tricyclic Antidepress Detected H (NotDetected) Ur Phencyclidine Scrn Not Detected (NotDetected) Ur Amphetamines Screen Not Detected (NotDetected) U Methamphetamines Scrn Not Detected (NotDetected) U Benzodiazepines Scrn Not Detected (NotDetected) Urine Cocaine Screen Not Detected (NotDetected) U Marijuana (THC) Screen Not Detected (NotDetected) Serum Alcohol <10 mg/dL Disposition Clinical Impression: Drug overdose, Suicide attempt by multiple drug overdose, Depression Disposition: ADMITTED IP TO THIS [facility] Condition: Serious Referrals: Ted Roca MD [Primary Care Provider] - 1-2 days
[2020-08-24] MEDS: MAGNESIUM SULFATE-D5W PMX 1 GM in DEXTROSE/WATER 1 100ML.BAG IVPB SCH (20:21)
[2020-08-25] MEDS: MAGNESIUM SULFATE-D5W PMX 1 GM in DEXTROSE/WATER 1 100ML.BAG IVPB SCH (01:06)
--- NOTE | 2020-08-25 09:13 | P.HPIM ---
History of Present Illness 70-year-old pleasant male with the history of depression which has been going on for few months admitted after he overdosed yesterday morning at around 9 AM patient took 10 of Seroquel 10 of Catapres 10 of oxycodone and 10 of metoprolol in attempt to commit suicide and kill himself. Patient denied any fever chills nausea vomiting patient has some slurry speech because of overdose on oxycodone, patient is bit tachycardic all his home medications are being held and patient appears to have reflex tachycardia from that. Patient denied any fever chills nausea vomiting patient doesn't have any QT prolongation at this time. Review of Systems REVIEW OF SYSTEMS: CONSTITUTIONAL: No fever, no malaise, no fatigue. HEENT: No recent visual problems or hearing problems. Denied any sore throat. CARDIOVASCULAR: No chest pain, orthopnea, PND, no palpitations, no syncope. PULMONARY: No shortness of breath, no cough, no hemoptysis. GASTROINTESTINAL: No diarrhea, no nausea, no vomiting, no abdominal pain. NEUROLOGICAL: No headaches, no weakness, no numbness. HEMATOLOGICAL: Denies any bleeding or petechiae. GENITOURINARY: Denies any burning micturition, frequency, or urgency. MUSCULOSKELETAL/RHEUMATOLOGICAL: Denies any joint pain, swelling, or any muscle pain. ENDOCRINE: Denies any polyuria or polydipsia. The rest of the 14-point review of systems is negative. Past Medical History Past Medical History: Atrial Fibrillation, Hyperlipidemia, Hypertension, Thyroid Disorder History of Any Multi-Drug Resistant Organisms: None Reported Past Surgical History: Orthopedic Surgery Additional Past Surgical History / Comment(s): achilles tendon repair, carpal tunnel R wrist, veronica knee scope Past Anesthesia/Blood Transfusion Reactions: No Reported Reaction Past Psychological History: Anxiety, Depression Smoking Status: Never smoker Past Alcohol Use History: None Reported Past Drug Use History: None Reported - Past Family History Mother Family Medical History: No Reported History Medications and Allergies Home Medications Medication Instructions Recorded Confirmed Type Apixaban [Eliquis] 5 mg PO BID 09/26/19 08/24/20 History Rosuvastatin Calcium 5 mg PO DAILY 09/26/19 08/24/20 History Emsam 6mg/24 Hrs Patch 1 patch TRANSDERM DAILY 08/24/20 08/24/20 History Levothyroxine Sodium [Synthroid] 75 mcg PO DAILY 08/24/20 08/24/20 History Metoprolol Tartrate [Lopressor] 50 mg PO BID 08/24/20 08/24/20 History QUEtiapine FUMARATE [SEROquel] 200 mg PO HS 08/24/20 08/24/20 History Allergies Allergy/AdvReac Type Severity Reaction Status Date / Time No Known Allergies Allergy Verified 09/26/19 14:04 Physical Exam Vitals: Vital Signs Temp Pulse Pulse Resp BP BP Pulse Ox 08/25/20 04:00 97.8 F 73 16 108/72 93 L 08/25/20 02:00 95 16 08/25/20 00:00 97.8 F 95 16 142/96 100 08/24/20 22:31 97.8 F 95 16 142/96 100 08/24/20 22:30 95 16 08/24/20 21:29 101 H 12 127/95 100 08/24/20 21:00 106 H 12 127/107 100 08/24/20 20:30 98 12 159/123 100 08/24/20 20:00 98 12 147/126 100 08/24/20 19:30 93 12 132/95 100 08/24/20 18:30 98 12 114/87 100 08/24/20 17:32 89 12 91/73 100 08/24/20 16:08 98.0 F 92 16 97/73 98 Intake and Output 08/24/20 08/25/20 08/25/20 22:59 06:59 14:59 Other: Voiding Method Urinal Urinal # Voids 1 Weight 95.254 kg 105 kg PHYSICAL EXAMINATION: GENERAL: The patient is alert and oriented x3, not in any acute distress. Well developed, well nourished. HEENT: Pupils are round and equally reacting to light. EOMI. No scleral icterus. No conjunctival pallor. Normocephalic, atraumatic. No pharyngeal erythema. No thyromegaly. CARDIOVASCULAR: S1 and S2 present. No murmurs, rubs, or gallops. PULMONARY: Chest is clear to auscultation, no wheezing or crackles. ABDOMEN: Soft, nontender, nondistended, normoactive bowel sounds. No palpable organomegaly. MUSCULOSKELETAL: No joint swelling or deformity. EXTREMITIES: No cyanosis, clubbing, or pedal edema. NEUROLOGICAL: Gross neurological examination did not reveal any focal deficits. Slurry speech Results CBC & Chem 7: 08/24/20 16:18 08/24/20 16:18 Labs: Abnormal Lab Results - Last 24 Hours (Table) 08/24/20 08/24/20 Range/Units 16:18 Unknown Sodium 135 L (137-145) mmol/L Glucose 131 H (74-99) mg/dL Total Bilirubin 1.9 H (0.2-1.3) mg/dL Creatine Kinase 35 L (55-170) U/L Total Protein 5.9 L (6.3-8.2) g/dL Urine Protein Trace H (Negative) Ur Oxycodone Screen Detected H (NotDetected) U Tricyclic Antidepress Detected H (NotDetected) Thrombosis Risk Factor Assmnt - Choose All That Apply Any of the Below Risk Factors Present?: No Each Risk Factor Represents 2 Points: Age 61-74 years Thrombosis Risk Factor Assessment Total Risk Factor Score: 2 Thrombosis Risk Factor Assessment Level: Low Risk Assessment and Plan Plan: -Suicide attempt, major depression: Patient has a sitter patient overdosed on above-mentioned medications. Psychiatry was consulted. Patient is willing to go to psychiatric floor. -Overdose on multiple medications: Patient is alert oriented 3 at this time patient doesn't have any significant liver enzyme abnormalities daily is not prolonged patient has some slurry speech from oxycodone which is expected to improve He hours after that patient should be able to go to medical floor at that time patient should be medically stable. -Hypertension -Atrial fibrillation: It appears to have persistent A. fib patient is presently in atrial flutter metoprolol will be resumed patient will be resumed on Eliquis -Hyperlipidemia -Hypothyroidism -Major depression
--- NOTE | 2020-08-25 09:14 | P.DS ---
Providers Date of admission: 08/24/20 20:16 Attending physician: Samy Omalley Consults: 08/24/20 20:16 Consult Physician Urgent Consulting Provider: Orlando Morgan Consult Reason/Comments: suicide attempts Do you want consulting provider notified?: Yes Primary care physician: Ted Roca [facility] Course: As mentioned in HPI. Patient should be able to go to psychiatric floor after a few hours of monitoring that is around 3:57 PM patient should be medically stable to be discharged to psychiatric floor Patient Condition at Discharge: Serious Plan - Discharge Summary New Discharge Prescriptions: Continue Apixaban [Eliquis] 5 mg PO BID Rosuvastatin Calcium 5 mg PO DAILY Emsam 6mg/24 Hrs Patch 1 patch TRANSDERM DAILY QUEtiapine FUMARATE [SEROquel] 200 mg PO HS Metoprolol Tartrate [Lopressor] 50 mg PO BID Levothyroxine Sodium [Synthroid] 75 mcg PO DAILY Discharge Medication List Apixaban [Eliquis] 5 mg PO BID 09/26/19 [History] Rosuvastatin Calcium 5 mg PO DAILY 09/26/19 [History] Emsam 6mg/24 Hrs Patch 1 patch TRANSDERM DAILY 08/24/20 [History] Levothyroxine Sodium [Synthroid] 75 mcg PO DAILY 08/24/20 [History] Metoprolol Tartrate [Lopressor] 50 mg PO BID 08/24/20 [History] QUEtiapine FUMARATE [SEROquel] 200 mg PO HS 08/24/20 [History] Follow up Appointment(s)/Referral(s): Ted Roca MD [Primary Care Provider] - 1-2 days
[2020-08-25] MEDS: METOPROLOL TARTRATE 50 MG TAB PO SCH ×2 (09:17→20:11)
[2020-08-25] MEDS: APIXABAN 5 MG TAB PO SCH ×2 (09:17→20:11)
[2020-08-25] MEDS: LEVOTHYROXINE 75 MCG TAB PO SCH (09:17)
[2020-08-25] MEDS: ATORVASTATIN 10 MG TAB PO SCH ×2 (09:17→09:22)
[2020-08-25 12:53] LABS: Basophils % (A) 1 %; Eosinophils # (A) 0.1 k/uL (0-0.7); Eosinophils % (A) 3 %; HCT 41.8 % (39.0-53.0); HGB 14.6 gm/dL (13.0-17.5); Lymphocytes # (A) 1.7 k/uL (1.0-4.8); Lymphocytes % (A) 36 %; MCH 33.9 pg (25.0-35.0); MCV 96.9 fL (80.0-100.0); Mean Platelet Volume 7.3; Monocytes # (A) 0.2 k/uL (0-1.0); Monocytes % (A) 4 %; Neutrophils # (A) 2.7 k/uL (1.3-7.7); Neutrophils % (A) 56 %; Platelet Count 152 k/uL (150-450); RBC 4.31 m/uL (4.30-5.90); RDW 12.7 % (11.5-15.5); WBC 4.9 k/uL (3.8-10.6)
[2020-08-25 13:05] LABS: Calcium 9.4 mg/dL (8.4-10.2); Potassium 4.2 mmol/L (3.5-5.1)
--- NOTE | 2020-08-25 13:44 | P.CN ---
Psychiatric Consult - . Consult date: 08/25/20 Consult:: IDENTIFYING DATA: Gio is a 70-year-old male readmitted to the medicine for for an acute overdose of prescription medications. The hospitalist consult to psychiatry due to the suicide attempt and history of elisabeth cidal ideation. HISTORY OF PRESENT ILLNESS: The medical record, interviewed the patient and spoke with his who was present in the room during our interview. He acknowledged that he attempted to end his life by overdosing on prescription medications. He stated that he is "tired" of feeling depressed. He described having failed treatment with multiple antidepressant medications, ECT and most recently, brief course of IV ketamine. He sees no no hope for himself cannot continue living in his current state. On the day of the overdose he is at home alone (his was at a retreat). He was thinking about suicide and talked about holding an amount of his prescription medications in his hand for several hours. At one point he spoke with his and impulsively took the medication. He fell asleep and felt "disappointed" when he awoke. He alleged that his thought was that he was even a failure and trying to kill himself. He then took additional medications and we tried to get out of bed he felt the floor. He called his who came home and called emergency services. When asked why he had called his after he fell to the ground he replied "maybe I didn't want to ." He described persistent feelings of hopelessness, helplessness and worthlessness. His stated that he talks about suicide every day. He denies energy and interest and struggles with overwhelming subjective anxiety. His has noticed the frontal decline in his functioning over the last year where he becomes more and more withdrawn and increasingly anxious and frightened. He does not want engage in social activities and has difficulty making decisions. She denied that his ability to care for himself has declined PAST PSYCHIATRIC HISTORY: He estimates that he has had approximately 6 psychiatric hospitalizations since July of last year. He was recently admitted to [facility] we restarted on a irreversible monoamine oxidase inhibitor. He alleged that he has been treated with multiple antidepressant medications (he could not recall the names of all the medications), 6 courses of ECT in 2 infusions of ketamine. He had difficulty with recovery from sedation from the ECT. He reported no substantial improvement in his mood or anxiety with ECT. Similarly, reported no improvement in his mood following the ketamine infusion. He did not continue ketamine because the treatment was not covered by insurance and was private pay. He was meeting with Dr. Barnett through [facility] and recently transferred to Dr. Bain. PAST MEDICAL HISTORY: See medical H&P ALLERGIES: Known drug ALLERGIES SUBSTANCE USE HISTORY: According his he has a history of alcohol use problem although he minimizes the amount and severity of his alcohol use. However, he has been abstinent from alcohol for approximately 1 year. Note that he was never admitted to a substance abuse treatment program FAMILY PSYCHIATRIC/SUBSTANCE USE HISTORY: Is unaware of family history of mental health or substance use problems. 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 He does with his second . MENTAL STATUS EXAM: He presented as a casually groomed elderly male who is laying comfortably in bed. He made eye contact and appeared to attend to the interview. He no distinction features are prominent physical abnormalities. He had a blunted facial expression. He was alert and oriented to person, place and time. He had psychomotor retardation but no abnormal involuntary movements. His speech was spontaneous and dysarthric. He tended to slur his words. His affect was flat and not reactive. He expressed continued suicidal ideation and wishes. He expressed feelings of hopelessness, helplessness and worthlessness. He ruminated about his chronic depression and anxiety. Not express ideas reference, paranoid ideation or delusions. His thinking was concrete but his associations were coherent, logical and goal directed. He denied hallucinations did not appear to be responding to internal stimuli. IMPRESSIONS: He is a 70-year-old male who has a history of a severe depressive disorder that has been unresponsive to several treatments including multiple antidepressants, ECT and most recently ketamine. [facility] a intentional overdose of prescription medications. He described continued feelings of depression and suicidal ideation. Note that his described a gradual decline in his functioning suggestive of a neurocognitive disorder. He should be treated inpatient basis with combination of psychopharmacology and multimodal therapy. DIAGNOSIS: Suicide attempt by overdose of multiple medications, major depressive disorder severe with anxious distress, rule out major neurocognitive disorder RECOMMENDATION: Continue one-to-one office on medicine unit. Obtained a CT scanned or MRI of the brain prior to transfer to psychiatry unit. Transfer to psychiatric unit when medically stable. 08/25/20 13:28
[2020-08-26 04:18] VITALS: RESP 18
[2020-08-26] MEDS: LEVOTHYROXINE 75 MCG TAB PO SCH (05:50)
[2020-08-26 09:25] VITALS: BP 150/100; PULSE 85; TEMP 98
[2020-08-26] MEDS: APIXABAN 5 MG TAB PO SCH (09:28)
[2020-08-26] MEDS: ATORVASTATIN 10 MG TAB PO SCH (09:28)
[2020-08-26] MEDS: METOPROLOL TARTRATE 50 MG TAB PO SCH (09:28)
[2020-08-26] MEDS ORDERED: SODIUM CHLORIDE 0.9% 1,000 ML IV ONE (09:45)
--- NOTE | 2020-08-26 09:49 | P.DS ---
Providers Date of admission: 08/24/20 20:16 Attending physician: Samy Omalley Consults: 08/24/20 20:16 Consult Physician Urgent Consulting Provider: Orlando Morgan Reason/Comments: suicide attempts Do you want consulting provider notified?: Yes Primary care physician: Ted Roca [facility] Course: 70-year-old pleasant male with the history of depression which has been going on for few months admitted after he overdosed yesterday morning at around 9 AM patient took 10 of Seroquel 10 of Catapres 10 of oxycodone and 10 of metoprolol in attempt to commit suicide and kill himself. Patient denied any fever chills nausea vomiting patient has some slurry speech because of overdose on oxycodone, patient is bit tachycardic all his home medications are being held and patient appears to have reflex tachycardia from that. Patient denied any fever chills nausea vomiting patient doesn't have any QT prolongation at this time. 08/26/2020 Patient was discharged yesterday but was not transferred to psychiatric floor as psychiatric personnel coordinator did not ask of the patient. Patient is medically stable to be discharged to psychiatric floor. Patient slurry speech resolved and secondary to oxycodone patient doesn't have any evidence of stroke or TIA there is no need for MRI. PHYSICAL EXAMINATION: GENERAL: The patient is alert and oriented x3, not in any acute distress. Well developed, well nourished. HEENT: Pupils are round and equally reacting to light. EOMI. No scleral icterus. No conjunctival pallor. Normocephalic, atraumatic. No pharyngeal erythema. No thyromegaly. CARDIOVASCULAR: S1 and S2 present. No murmurs, rubs, or gallops. PULMONARY: Chest is clear to auscultation, no wheezing or crackles. ABDOMEN: Soft, nontender, nondistended, normoactive bowel sounds. No palpable organomegaly. MUSCULOSKELETAL: No joint swelling or deformity. EXTREMITIES: No cyanosis, clubbing, or pedal edema. NEUROLOGICAL: Gross neurological examination did not reveal any focal deficits. SKIN: No rashes. Assessment and Plan Plan: -Suicide attempt, major depression: Patient has a sitter patient overdosed on above-mentioned medications. Patient is medically stable to be discharged to psychiatric floor Patient is willing to go to psychiatric floor. -Overdose on multiple medications: Patient's symptoms seconded overdose complet sha resolved. MRI of the head is not warranted at this time. -Hypertension -Atrial fibrillation: It appears to have persistent A. fib patient is presently in atrial flutter metoprolol will be resumed patient will be resumed on Eliquis -Hyperlipidemia -Hypothyroidism -Major depression Patient Condition at Discharge: Serious Plan - Discharge Summary New Discharge Prescriptions: Continue Apixaban [Eliquis] 5 mg PO BID Rosuvastatin Calcium 5 mg PO DAILY Emsam 6mg/24 Hrs Patch 1 patch TRANSDERM DAILY QUEtiapine FUMARATE [SEROquel] 200 mg PO HS Metoprolol Tartrate [Lopressor] 50 mg PO BID Levothyroxine Sodium [Synthroid] 75 mcg PO DAILY Discharge Medication List Apixaban [Eliquis] 5 mg PO BID 09/26/19 [History] Rosuvastatin Calcium 5 mg PO DAILY 09/26/19 [History] Emsam 6mg/24 Hrs Patch 1 patch TRANSDERM DAILY 08/24/20 [History] Levothyroxine Sodium [Synthroid] 75 mcg PO DAILY 08/24/20 [History] Metoprolol Tartrate [Lopressor] 50 mg PO BID 08/24/20 [History] QUEtiapine FUMARATE [SEROquel] 200 mg PO HS 08/24/20 [History] Follow up Appointment(s)/Referral(s): Ted Roca MD [Primary Care Provider] - 1-2 days Discharge Disposition: TRANSFER TO PSYCH HOSP/UNIT
== END 2020-08-26 12:23 ==
LOC: EC 16:04 → 3SCARD 20:16
PROVIDERS: ADMIT Internal Medicine; ATTEND Internal Medicine
DX: T40.2X2A Poisoning by other opioids, intentional self-harm, initial encounter (principal); T44.7X2A Poisoning by beta-adrenoreceptor antagonists, intentional self-harm, initial encounter; T43.592A Poisoning by other antipsychotics and neuroleptics, intentional self-harm, initial encounter; F32.9 Major depressive disorder, single episode, unspecified; I10 Essential (primary) hypertension; I48.92 Unspecified atrial flutter; I48.19 Other persistent atrial fibrillation; E78.5 Hyperlipidemia, unspecified; E03.9 Hypothyroidism, unspecified; R00.0 Tachycardia, unspecified; Z20.822 Contact with and (suspected) exposure to COVID-19; G56.01 Carpal tunnel syndrome, right upper limb; F41.9 Anxiety disorder, unspecified; Z79.01 Long term (current) use of anticoagulants; Z79.82 Long term (current) use of aspirin; Z79.890 Hormone replacement therapy; Z79.899 Other long term (current) drug therapy; Z91.5 Personal history of self-harm
CPT/HCPCS: 96366 ×3; 96368; 96361; 96365; 99285; 36415; 93005; 80053; 80048; 82550; 83735; 85025 ×2; 81003; 80306; 80143; 87635; 80179; G0378 ×3; G0480; J3475 ×2; J0610; 80320

== ENCOUNTER 2020-08-26 12:58 | Inpatient (IN) | payer MEDICARE ==
[2020-08-26] MEDS ORDERED: MAG HYDROX/AL HYDROX/SIMETH 30 ML CUP PO PRN (13:08)
[2020-08-26] MEDS ORDERED: MAGNESIUM HYDROXIDE 2,400 MG/10 ML CUP PO PRN (13:08)
[2020-08-26] MEDS ORDERED: LORazepam 1 MG TAB PO PRN (13:08)
[2020-08-26] MEDS ORDERED: LORazepam 2 MG/ML INJ IM PRN (13:12)
[2020-08-26] MEDS: ACETAMINOPHEN TAB 325 MG TAB PO PRN (16:31)
[2020-08-26] MEDS: QUEtiapine 200 MG TAB PO SCH (21:22)
[2020-08-26] MEDS: APIXABAN 5 MG TAB PO SCH (21:22)
[2020-08-26] MEDS: METOPROLOL TARTRATE 50 MG TAB PO SCH (21:22)
--- NOTE | 2020-08-26 21:24 | P.MDCNMH ---
History of Present Illness H&P Date: 08/26/20 Chief Complaint: Medical history and physical Reason for consult -medical management of psychiatric patient. Mr. Mason is a 70-year-old male with a past medical history of atrial fibrillation, hypertension, hyperlipidemia, thyroid disorder who was admitted to the psychiatric unit for overdose on oxycodone. Patient was transferred from the general medical floors to the psychiatric unit today. Patient has significant history of depression and states that he has been dealing with it for the past 14 months. So eventually patient attempted suicide by trying to overdose on Seroquel, Catapres and oxycodone and metoprolol. He was monitored on the medical floor for 48 hours and has been cleared for discharge there. Patient states that he has tried multiple antidepressant medications, ECT and most recently IV ketamine but it did not help him with his depression. Patient denies having any chest pain or palpitations. No cough or difficulty breathing. No abdominal pain nausea vomiting or diarrhea. Patient denies having any orthopnea or PND. No lower extremity swelling. No dysuria or hematuria. Patient denies having any headaches, blurry vision or double vision. He denies having any speech abnormalities. He denies having any weakness of his extremities. No loss of consciousness or syncopal episodes. Patient's vitals temperature of 97.4, heart rate 95, respiratory 16, blood pressure 110 x 75, saturating at 98% on room air. On reviewing his labs from yesterday white count of 4.9, hemoglobin 14.6, platelets 152. Sodium 138, potassium 4.2, chloride 104, bicarbonate 9, BUN 18, creatinine 1.29. Review of Systems REVIEW OF SYSTEMS: CONSTITUTIONAL: No fever, chills or rigors HEENT: No recent visual problems or hearing problems. Denied any sore throat. CARDIOVASCULAR: No chest pain, orthopnea, PND, no palpitations, no syncope. PULMONARY: no hemoptysis. GASTROINTESTINAL: No diarrhea, no nausea, no vomiting, no abdominal pain. NEUROLOGICAL: no weakness of the extremities HEMATOLOGICAL: Denies any bleeding or petechiae. GENITOURINARY: Denies any burning micturition, frequency, or urgency. MUSCULOSKELETAL/RHEUMATOLOGICAL: Denies any joint pain, swelling, or any muscle pain. ENDOCRINE: Denies any polyuria or polydipsia. The rest of the 14-point review of systems is negative Past Medical History Past Medical History: Atrial Fibrillation, Hyperlipidemia, Hypertension, Thyroid Disorder History of Any Multi-Drug Resistant Organisms: None Reported Past Surgical History: Orthopedic Surgery Additional Past Surgical History / Comment(s): achilles tendon repair, carpal tunnel R wrist, veronica knee scope Past Anesthesia/Blood Transfusion Reactions: No Reported Reaction Past Psychological History: Anxiety, Depression Smoking Status: Never smoker Past Alcohol Use History: None Reported Past Drug Use History: None Reported - Past Family History Mother Family Medical History: No Reported History Medications and Allergies Home Medications Medication Instructions Recorded Confirmed Type Apixaban [Eliquis] 5 mg PO BID 09/26/19 08/26/20 History Rosuvastatin Calcium 5 mg PO DAILY 09/26/19 08/26/20 History Emsam 6mg/24 Hrs Patch 1 patch TRANSDERM DAILY 08/24/20 08/26/20 History Levothyroxine Sodium [Synthroid] 75 mcg PO DAILY 08/24/20 08/26/20 History Metoprolol Tartrate [Lopressor] 50 mg PO BID 08/24/20 08/26/20 History QUEtiapine FUMARATE [SEROquel] 200 mg PO HS 08/24/20 08/26/20 History Allergies Allergy/AdvReac Type Severity Reaction Status Date / Time No Known Allergies Allergy Verified 09/26/19 14:04 Physical Exam Vitals: Vital Signs Temp Pulse Resp BP Pulse Ox 08/26/20 14:19 97.4 F L 95 16 110/75 98 Intake and Output 08/26/20 08/26/20 08/26/20 06:59 14:59 22:59 Other: Weight 96.3 kg PHYSICAL EXAMINATION: GENERAL: Elderly male appears to be in no acute distress. HEENT: Pupils are round and equally reacting to light. EOMI. No scleral icterus. No conjunctival pallor. Normocephalic, atraumatic. No pharyngeal erythema. No thyromegaly. CARDIOVASCULAR: S1 and S2 present. PULMONARY: Bilateral breath sounds are positive. No wheeze or crackles. ABDOMEN: Soft, nontender, nondistended, normoactive bowel sounds. MUSCULOSKELETAL: No joint swelling or deformity. EXTREMITIES: No cyanosis, clubbing, or pedal edema. NEUROLOGICAL: patient is alert awake oriented 3 .Gross neurological examination did not reveal any focal deficits. SKIN: No rashes. Cranial Nerve Examination - Cranial Nerves Cranial Nerve II- Optic: Intact Cranial Nerve III- Oculomotor: Intact Cranial Nerve IV- Trochlear: Intact Cranial Nerve V- Trigeminal: Intact Cranial Nerve - Abducens: Intact Cranial Nerve VII- Facial: Intact Cranial Nerve VIII- Auditory: Intact Cranial Nerve IX- Glossopharyngeal: Intact Cranial Nerve X- Vagus: Intact Cranial Nerve XI- Accessory: Intact Cranial Nerve XII- Hypoglossal: Intact Assessment and Plan Assessment: ASSESSMENT -Suicide attempt, major depression -Overdose on multiple medications -Major depression -Hypertension -Atrial fibrillation -Hyperlipidemia -Hypothyroidism PLAN:Patient is mainly managed in the psychiatric unit for major depression. For persistent atrial fibrillation patient will be continued on metoprolol and anticoagulation with Eliquis. Continue with levothyroxine. Continue with atorvastatin. We will continue to follow the patient on as-needed basis. Thank you for the consultation.
[2020-08-27] MEDS: LEVOTHYROXINE 75 MCG TAB PO SCH (06:19)
[2020-08-27] MEDS: APIXABAN 5 MG TAB PO SCH ×2 (08:11→21:28)
[2020-08-27] MEDS: ATORVASTATIN 10 MG TAB PO SCH (08:11)
[2020-08-27] MEDS: METOPROLOL TARTRATE 50 MG TAB PO SCH ×2 (08:11→21:28)
[2020-08-27] MEDS: ACETAMINOPHEN TAB 325 MG TAB PO PRN (08:12)
[2020-08-27] MEDS: SELEGILINE 6 MG/24 HR TRANSDERM SCH (09:36)
--- NOTE | 2020-08-27 12:35 | P.HP ---
Psychiatric H&P - . H&P Date: 08/27/20 History & Physical: Allergies Allergy/AdvReac Type Severity Reaction Status Date / Time No Known Allergies Allergy Verified 09/26/19 14:04 Vital Signs Temp 97.2 F L 08/27/20 06:40 Pulse 108 H 08/27/20 06:40 Resp 16 08/27/20 06:40 BP 143/108 08/27/20 06:40 Pulse Ox 98 08/26/20 14:19 Intake & Output 08/26/20 08/27/20 08/27/20 18:59 06:59 18:59 Weight 96.3 kg 08/27/20 12:23 IDENTIFYING DATA: Patient is a 70-year-old, , retired, male admitted to the inpatient psychiatric unit for depression with suicidal ideation with an attempt by overdose. HPI: Patient presented to the hospital on 08/24/2020 after overdosing on his home medications. The patient reportedly took 10 Catapres, 10 Seroquel, oxycodone, and metoprolol with the intention to take his own life. The patient reports that he woke up that morning and was alone in the house as his went to go babysit their grandchildren. He reports that he woke up in a panic and began expressing significant symptoms of depression including suicidal ideation. He states that he then had the pills in his hand and was standing by the sink for 35 minutes before he decided to overdose. He does express that this was an attempt to take his own life. The patient reports that he has been having ongoing issues with depression since the start of this pandemic in June 2019. He reports that prior to this, his psychiatric symptoms are well-controlled for the past 9 years on Celexa. He reports multiple issues contribute to his elevated depression and anxiety at the beginning of the pandemic including being off work, his family moving in, and quitting alcohol after 35 years of heavy drinking. The patient also expresses that he was also on Xanax for sleep and this was also tapered off. The patient does report that over the past year he has had multiple treatments for it this depression including ECT, ketamine, and has trialed medications such as trintellix, Zoloft, and is currently on the selegeline patch. In regards to his depressive symptoms the patient endorses feelings of hopelessness, helplessness, anhedonia, decreased appetite with a 35 pound weight loss over the past year, and suicidal ideation. He reports that this overdose was his first attempt at suicide. He does express elevated anxiety symptoms and panic that occurs in the mornings. The patient does not endorse any significant symptoms of mackenzie. He denies any periods of excessive energy, increased goal directed activity, or grandiosity. He reports no significant history of psychosis. He denies any auditory or visual hallucinations. He denies any paranoia or other delusions. PAST PSYCHIATRIC HISTORY: Patient states that he first began treatment for mental illness in 2009 after expressing panic attacks. He has since been treated for depression and anxiety. The patient recalls prior trials of Xanax, Zoloft, Celexa, trintellix, and dayvigo. He is currently on a regimen of selegeline patches and seroquel. The patient reports 4 prior inpatient psychiatric hospitalizations. His last hospitalization was at [facility] one week prior to his overdose. Patient is currently open with Dr. Bain at [facility] in [place]. Aside from this overdose attempt, the patient denies any prior attempts at suicide. PMH: Past Medical History: Atrial Fibrillation, Hyperlipidemia, Hypertension, Thyroid Disorder History of Any Multi-Drug Resistant Organisms: None Reported Past Surgical History: Orthopedic Surgery Additional Past Surgical History / Comment(s): achilles tendon repair, carpal tunnel R wrist, veronica knee scope Past Anesthesia/Blood Transfusion Reactions: No Reported Reaction Past Psychological History: Anxiety, Depression Past Alcohol Use History: None Reported Past Drug Use History: None Reported ALLERGIES: NO KNOWN DRUG ALLERGIES CHEMICAL DEPENDENCY HISTORY: Patient reports quitting alcohol 1 year ago after drinking heavily for 35 years. He denies any tobacco, marijuana, or illicit drug use. FAMILY PSYCHIATRIC/SUBSTANCE USE HISTORY: The patient is unaware of any mental illness or substance abuse in his immediate family. SOCIAL HISTORY: The patient has been to his for the past 21 years. This is his second marriage. He has one son from a previous marriage and 1 son and 2 daughters from his current marriage. His 's name is Cheryl whom he is living with. The patient graduated from [employer]. 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 The patient retired from work in June 2019 in response to the pandemic. He reports a Faith yarsanism. His hobbies include fishing and golf. MENTAL STATUS EXAM: General Appearance: Patient appears to be stated age is alert, directable, and attempts to cooperate. Patient appears to have good hygiene and grooming. Behavior: Patient is seated without any agitated behavior. Normal psychomotor activity Speech: Patient's speech is fluent and nonpressured. Obtain use, formal rate, tone, and volume. Mood/Affect: Patient reports their mood is depressed, affect is congruent and constricted. Suicidality/Homicidality: Patient denies having any homicidal ideation intent or plan. Denies any suicidal ideations intent or plan Perceptions: Patient denies any visual hallucinations and denies any auditory hallucinations Though content/process: There is no evidence of any delusional thought content and thought process is linear and goal-directed. Memory and concentration: AOX3, grossly intact for the purposes of this session. Can spell "WORLD" backwards Judgment and insight: Fair STRENGTHS/WEAKNESSES: Strength is that patient has stable housing, a supportive family, and is well off financially. Weakness is that patient has treatment resistant depression has made evident by prior trials of ECT, ketamine, and his current home medication of selegeline patches. He is also at increased risk for suicide based on his demographic age, race, as well as his prior attempt at suicide. INTELLECT: average IMPRESSIONS: Major depressive disorder, recurrent, severe, with anxious features. PLAN: -Patient is admitted under voluntary status to [facility]HU for stabilization of psychiatric symptoms and safety. Patient signed adult voluntary form and medication consent and is placed in patient's chart. -Medications : The patient wishes to continue using his Ensam patches for depression as he feels he has not had an adequate trial on the medications. He reports he will ask his to bring in the medication to the hospital as it is not on formulary. Continue Seroquel 20 mg by mouth at bedtime for mood augmentation/insomnia Consider the use of doxepin for management of depression, anxiety, and insomnia. Due to risk of serotonin syndrome, doxepin would be used instead of the selegiline patches. -Ativan and Haldol PRN for gitation/agression -Patient was informed of the risks, benefits and side effects of the medication and patient verbally consented to taking the medications. Patient signed med consent form and was placed in chart. -Internal Medicine consult to perform medical evaluation and physical. -SW n board for dicharge planning. Encourage patient to participate in groups to work on coping skills. []
[2020-08-27] MEDS: QUEtiapine 200 MG TAB PO SCH (21:28)
[2020-08-28] MEDS: LEVOTHYROXINE 75 MCG TAB PO SCH (06:13)
[2020-08-28] MEDS: METOPROLOL TARTRATE 50 MG TAB PO SCH ×2 (09:02→20:43)
[2020-08-28] MEDS: APIXABAN 5 MG TAB PO SCH ×2 (09:02→20:43)
[2020-08-28] MEDS: ATORVASTATIN 10 MG TAB PO SCH (09:02)
[2020-08-28] MEDS: SELEGILINE 6 MG/24 HR TRANSDERM SCH (09:03)
--- NOTE | 2020-08-28 11:21 | P.PN ---
Progress Note - Text Progress Note Date: 08/28/20 Interval History: Patient was seen attending group and was directable and agreeable to speak with field underwriter in the office. Patient continues to endorse significant symptoms of depression and anxiety. He reports that his anxiety is particularly worse in the morning endorses feelings of panic and a dysphoric thought process. The patient has recently restarted his selegiline patches. He is currently not reporting any significant side effects to his medications. He reports no issues with sleep or appetite. The patient continues to endorse suicidal ideation but no homicidal ideation, intention, and/or plan. He is not reporting any auditory or visual hallucinations. Is denying any paranoia or other delusions. Patient expresses that he is tired of living this way and expresses significant fear that he will not feel or be better. This provider spent significant amount of time working on cognitive reframing. This provider also discussed with the patient the risks, benefits, and treatment alternatives of Klonopin for management of his anxiety in the morning. He is agreeable to a trial of the medication. Mental Status Exam: General Appearance: Patient appears to be stated age is alert, directable, and cooperative. Good hygiene and grooming. Kyphotic posture. Behavior: Patient is calmly seated without any agitated behavior. Psychomotor activity is normal. Eye contact is appropriate. Speech: Patient's speech is fluent and nonpressured. Spontaneous, with normal rate, tone, and volume. Mood/Affect: Mood is depressed. Affect is withdrawn and blunted today. Suicidality/Homicidality: patient endorses suicidal ideation. He denies any homicidal ideation, intention, and/or plan. Perceptions: Patient denies any visual hallucinations and denies any auditory hallucinations Though content/process: There is no evidence of any delusional thought content and thought process is dysphoric. Memory and concentration: AOX3, grossly intact for the purposes of this session Judgment and insight: Fair Assessment Major depressive disorder, recurrent, severe, with anxious features. Plan: -Patient continues to meet criteria for inpatient psychiatric admission for symptom stabilization and safety. Patient has signed adult voluntary form and medication consent and was placed in patient's chart. -Medications: Continue Seroquel 200 mg by mouth at bedtime for mood augmentation/insomnia Continue selegiline patches 6 mg every 24 hours for depression Start Klonopin 0.5 mg by mouth every morning for management of morning anxiety and panic. -When necessary Ativan for agitation/aggression. -SW on board for discharge planning. Encouraged the patient to participate in milieu.
[2020-08-28] MEDS: ACETAMINOPHEN TAB 325 MG TAB PO PRN (18:10)
[2020-08-28] MEDS: QUEtiapine 200 MG TAB PO SCH (20:44)
[2020-08-29] MEDS: LEVOTHYROXINE 75 MCG TAB PO SCH (07:21)
[2020-08-29] MEDS: SELEGILINE 6 MG/24 HR TRANSDERM SCH (08:30)
[2020-08-29] MEDS: clonazePAM 0.5 MG TAB PO SCH (08:31)
[2020-08-29] MEDS: METOPROLOL TARTRATE 50 MG TAB PO SCH ×2 (08:31→21:10)
[2020-08-29] MEDS: ATORVASTATIN 10 MG TAB PO SCH (08:31)
[2020-08-29] MEDS: APIXABAN 5 MG TAB PO SCH ×2 (08:31→21:10)
--- NOTE | 2020-08-29 11:04 | P.PN ---
Progress Note - Text Progress Note Date: 08/29/20 Interval History: Patient was seen attending group and was directable and agreeable to speak with short story writer in the office. Patient continues to endorse significant symptoms of hopelessness, elevated anxiety, and suicidal ideation. He states that if he continues to feel hopeless he would "not be surprised" if he was to hurt himself again. The patient expresses that he feels like there is no point in living and that something bad would happen to him, he would accept it. He reports that his mood is mostly unchanged since admission. Patient did take Klonopin this morning and reports tolerating medication well. He states that he had some difficulty sleeping last night due to the milieu but reports that his anxiety do not appear to be elevated this morning. He is currently not reporting any homicidal ideation, intention, and/or plan. The patient reports that his little desire to eat but knows that he has to eat in order to maintain nutrition. He has been adherent with his medications and is not reporting any side effects at this time. Mental Status Exam: General Appearance: Patient appears to be stated age is alert, directable, and cooperative. Good hygiene and grooming. Kyphotic posture. Behavior: Patient is calmly seated without any agitated behavior. Psychomotor activity is normal. Eye contact is appropriate. Speech: Patient's speech is fluent and nonpressured. Spontaneous, with normal rate, tone, and volume. Mood/Affect: Mood is depressed. Affect is withdrawn and blunted today. Suicidality/Homicidality: patient endorses suicidal ideation. He denies any homicidal ideation, intention, and/or plan. Perceptions: Patient denies any visual hallucinations and denies any auditory hallucinations Though content/process: There is no evidence of any delusional thought content and thought process is dysphoric. Memory and concentration: AOX3, grossly intact for the purposes of this session Judgment and insight: Fair Assessment Major depressive disorder, recurrent, severe, with anxious features. Plan: -Patient continues to meet criteria for inpatient psychiatric admission for symptom stabilization and safety. Patient has signed adult voluntary form and medication consent and was placed in patient's chart. -Patient is at elevated risk for suicide due to his prior attempt and age and race demographic -Medications: Continue Seroquel 200 mg by mouth at bedtime for mood augmentation/insomnia Continue selegiline patches 6 mg every 24 hours for depression Continue Klonopin 0.5 mg by mouth every morning for management of morning anxiety and panic. Cognitive Behavioral Therapy was performed with this patient. We focused on coping skills for anxiety, mindfulness, and cognitive reframing. -When necessary Ativan for agitation/aggression. -SW on board for discharge planning. Encouraged the patient to participate in milieu.
[2020-08-29] MEDS: QUEtiapine 200 MG TAB PO SCH (21:10)
[2020-08-30] MEDS: LEVOTHYROXINE 75 MCG TAB PO SCH (06:52)
[2020-08-30] MEDS: SELEGILINE 6 MG/24 HR TRANSDERM SCH (08:18)
[2020-08-30] MEDS: clonazePAM 0.5 MG TAB PO SCH (08:18)
[2020-08-30] MEDS: METOPROLOL TARTRATE 50 MG TAB PO SCH ×2 (08:18→21:30)
[2020-08-30] MEDS: ATORVASTATIN 10 MG TAB PO SCH (08:18)
[2020-08-30] MEDS: APIXABAN 5 MG TAB PO SCH ×2 (08:18→21:30)
--- NOTE | 2020-08-30 11:16 | P.PN ---
Progress Note - Text Progress Note Date: 08/30/20 Interval History: Patient was seen attending group and was directable and agreeable to speak with technical document writer in the office. The patient continues to endorse hopelessness which contributes to his overall low mood and depressive symptoms. He states that there has been some improvement as he feels like the anxiety and the hopelessness appears to be abated until noontime rather than continuous throughout the entire day. He continues to endorse suicidal ideation but denies any intention or plan at this time. He is not reporting any homicidal ideation, intention, and/or plan. The patient reports that he feels a little tired with the Klonopin in the mornings but states that it is tolerable at this time. This provider spent a significant amount of time on working with the patient and cognitive reframing and gave the patient homework to list 5 things that he is hopeful for upon discharge. The patient is agreeable to these tasks. He is otherwise reporting that sleep has been difficult due to [place] and his roommate. He denies any issues with appetite. He reports no auditory or visual hallucinations. He denies any paranoia or other delusions. He has been in adherent with his medications and reports sedation as a side effect of Klonopin but is otherwise tolerating the other medications well. Mental Status Exam: General Appearance: Patient appears to be stated age is alert, directable, and cooperative. Good hygiene and grooming. Kyphotic posture. Behavior: Patient is calmly seated without any agitated behavior. Psychomotor activity is normal. Eye contact is appropriate. Speech: Patient's speech is fluent and nonpressured. Spontaneous, with normal rate, tone, and volume. Mood/Affect: Mood is depressed. Affect is withdrawn and constricted today. Suicidality/Homicidality: Patient endorses suicidal ideation. He denies any homicidal ideation, intention, and/or plan. Perceptions: Patient denies any visual hallucinations and denies any auditory hallucinations Though content/process: There is no evidence of any delusional thought content and thought process is dysphoric but improving. Memory and concentration: AOX3, grossly intact for the purposes of this session Judgment and insight: Fair Assessment Major depressive disorder, recurrent, severe, with anxious features. Plan: -Patient continues to meet criteria for inpatient psychiatric admission for symptom stabilization and safety. Patient has signed adult voluntary form and medication consent and was placed in patient's chart. -Patient is at elevated risk for suicide due to his prior attempt and age and race demographic -Medications: Continue Seroquel 200 mg by mouth at bedtime for mood augmentation/insomnia Continue selegiline patches 6 mg every 24 hours for depression Continue Klonopin 0.5 mg by mouth every morning for management of morning anxiety and panic. Start lithium 450 mg by mouth at bedtime for augmentation of his antidepressant and to manage suicidality Cognitive Behavioral Therapy was performed with this patient. We focused on coping skills for anxiety, mindfulness, and cognitive reframing. -When necessary Ativan for agitation/aggression. -SW on board for discharge planning. Encouraged the patient to participate in milieu.
[2020-08-30] MEDS: QUEtiapine 200 MG TAB PO SCH (21:30)
[2020-08-30] MEDS: LITHIUM CARBONATE ER 450 MG TABLET.ER PO SCH (21:30)
[2020-08-31] MEDS: LEVOTHYROXINE 75 MCG TAB PO SCH (06:30)
[2020-08-31] MEDS: clonazePAM 0.5 MG TAB PO SCH (08:24)
[2020-08-31] MEDS: ATORVASTATIN 10 MG TAB PO SCH (08:25)
[2020-08-31] MEDS: METOPROLOL TARTRATE 50 MG TAB PO SCH ×2 (08:26→21:27)
[2020-08-31] MEDS: APIXABAN 5 MG TAB PO SCH ×2 (08:26→21:27)
[2020-08-31] MEDS: SELEGILINE 6 MG/24 HR TRANSDERM SCH (08:26)
--- NOTE | 2020-08-31 11:24 | P.PN ---
Progress Note - Text Progress Note Date: 08/31/20 Interval History: Patient was seen attending group and was directable and agreeable to speak with automobile service writer in the office. The patient continues to report hopelessness. He is not reporting any overt suicidal intention or plan but states that if something were to happen to him he would not mind. He endorses passive suicidal thoughts. He is not reporting any homicidal ideation, intention, and/or plan. The patient continues to report elevated anxiety and concern that others are judging him for how he has been over the past year or so in regards to his depression symptoms. The patient does report that he continues to have some difficulty sleeping due to his roommate. He is not reporting any auditory or visual hallucinations. Is denying any paranoia or delusions. He has been adherent with his medications and reports that he is tolerating them well now. He is not reporting any issues with appetite. Mental Status Exam: General Appearance: Patient appears to be stated age is alert, directable, and cooperative. Good hygiene and grooming. Kyphotic posture. Behavior: Patient is calmly seated without any agitated behavior. Psychomotor activity is normal. Eye contact is appropriate. Speech: Patient's speech is fluent and nonpressured. Spontaneous, with normal rate, tone, and volume. Mood/Affect: Mood is depressed. Affect is anxious but with appropriate range. Suicidality/Homicidality: Patient endorses suicidal ideation. He denies any homicidal ideation, intention, and/or plan. Perceptions: Patient denies any visual hallucinations and denies any auditory hallucinations Though content/process: There is no evidence of any delusional thought content and thought process is dysphoric but improving. Memory and concentration: AOX3, grossly intact for the purposes of this session Judgment and insight: Fair Assessment Major depressive disorder, recurrent, severe, with anxious features. Plan: -Patient continues to meet criteria for inpatient psychiatric admission for symptom stabilization and safety. Patient has signed adult voluntary form and medication consent and was placed in patient's chart. -Patient is at elevated risk for suicide due to his prior attempt and age and race demographic -Medications: Continue Seroquel 200 mg by mouth at bedtime for mood augmentation/insomnia Continue selegiline patches 6 mg every 24 hours for depression Continue Klonopin 0.5 mg by mouth every morning for management of morning anxiety and panic. Continue lithium 450 mg by mouth at bedtime for augmentation of his antidepressant and to manage suicidality. Consider gradual titration and response to treatment. Cognitive Behavioral Therapy was performed with this patient. We focused on coping skills for anxiety, mindfulness, and cognitive reframing. -When necessary Ativan for agitation/aggression. -SW on board for discharge planning. Encouraged the patient to participate in milieu.
[2020-08-31] MEDS: ACETAMINOPHEN TAB 325 MG TAB PO PRN (17:42)
[2020-08-31] MEDS: LITHIUM CARBONATE ER 450 MG TABLET.ER PO SCH (21:27)
[2020-08-31] MEDS: QUEtiapine 200 MG TAB PO SCH (21:44)
[2020-09-01] MEDS: LEVOTHYROXINE 75 MCG TAB PO SCH (06:19)
[2020-09-01] MEDS: SELEGILINE 6 MG/24 HR TRANSDERM SCH (07:56)
[2020-09-01] MEDS: ATORVASTATIN 10 MG TAB PO SCH (07:56)
[2020-09-01] MEDS: METOPROLOL TARTRATE 50 MG TAB PO SCH ×2 (07:56→20:49)
[2020-09-01] MEDS: APIXABAN 5 MG TAB PO SCH ×2 (07:57→20:49)
[2020-09-01] MEDS: clonazePAM 0.5 MG TAB PO SCH (07:57)
--- NOTE | 2020-09-01 11:27 | P.PN ---
Progress Note - Text Progress Note Date: 09/01/20 Interval History: This 70-year-old white male was admitted to Hospital because of major depression. He stated he takes selegiline patch, Klonopin and lithium. He stated Klonopin makes him tired in the morning. He stated he is still depressed but is able to sleep good. He stated he has other medical issues and takes medication for his other medical problems. Patient was seen and was directable and agreeable to speak with creative writer. At this time patient denies any suicidal or homical ideations, intent or plan. Patient denies any auditory, visual hallucinations and denies any paranoia or delusions. Patient denies any side effects from the medications and has been compliant with meds. Mental Status Exam: General Appearance: Patient appears to be stated age is alert, directable, and cooperative. Behavior: Patient is calmly seated without any agitated behavior. Speech: Patient's speech is nonpressured but low in volume and monotonous. Mood/Affect: Mood is improving mildly, affect is congruent and constricted. Suicidality/Homicidality: Patient denies having any suicidal or homicidal ideation intent or plan. Perceptions: Patient denies any visual hallucinations and denies any auditory hallucinations Though content/process: There is no evidence of any delusional thought content and thought process is linear and goal-directed. Memory and concentration: AOX3, grossly intact for the purposes of this session Judgment and insight: Improving mildly Assessment Patient is still depressed. He has some side effects with Klonopin. He will be maintained on the same regimen of medications. Plan: -Patient continues to meet criteria for inpatient psychiatric admission for symptom stabilization and safety. -Medications: Continue as before -When necessary Ativan and Haldol for agitation/aggression. -SW on board for discharge planning. Encouraged the patient to participate in milieu.
[2020-09-01] MEDS: ACETAMINOPHEN TAB 325 MG TAB PO PRN (17:41)
[2020-09-01] MEDS: LITHIUM CARBONATE ER 450 MG TABLET.ER PO SCH (20:49)
[2020-09-01] MEDS: QUEtiapine 200 MG TAB PO SCH (20:50)
[2020-09-02] MEDS: LEVOTHYROXINE 75 MCG TAB PO SCH (06:43)
[2020-09-02] MEDS: clonazePAM 0.5 MG TAB PO SCH (07:59)
[2020-09-02] MEDS: METOPROLOL TARTRATE 50 MG TAB PO SCH ×2 (07:59→21:01)
[2020-09-02] MEDS: ATORVASTATIN 10 MG TAB PO SCH (08:00)
[2020-09-02] MEDS: APIXABAN 5 MG TAB PO SCH ×2 (08:00→21:02)
[2020-09-02] MEDS: SELEGILINE 6 MG/24 HR TRANSDERM SCH (08:00)
--- NOTE | 2020-09-02 12:35 | P.PN ---
Progress Note - Text Progress Note Date: 09/02/20 Interval History: Patient was seen in his room and was directable and agreeable to speak with headline writer. This 70-year-old male patient was admitted in the hospital because a major depression. He is still depressed. He is taking his medication. He was just recently started on lithium. He stated that he is on Klonopin and it still makes him tired. He stated he wakes up at night time frequently. At this time patient denies any suicidal or homical ideations, intent or plan. Patient denies any auditory, visual hallucinations and denies any paranoia or delusions. Patient has been compliant with meds. Mental Status Exam: General Appearance: Patient appears to be stated age is alert, directable, and cooperative. Behavior: Patient is calm without any agitated behavior. Speech: Patient's speech is fluent and nonpressured. Mood/Affect: Mood is improving mildly, affect is congruent and constricted. Suicidality/Homicidality: Patient denies having any suicidal or homicidal ideation intent or plan. Perceptions: Patient denies any visual hallucinations and denies any auditory hallucinations Though content/process: There is no evidence of any delusional thought content and thought process is linear and goal-directed. Memory and concentration: AOX3, grossly intact for the purposes of this session Judgment and insight: Improving mildly Assessment This patient continues to experience symptoms of her depression Plan: -Patient continues to meet criteria for inpatient psychiatric admission for symptom stabilization and safety. -Medications: Continue medication as before -When necessary Ativan and Haldol for agitation/aggression. -SW on board for discharge planning. Encouraged the patient to participate in milieu.
[2020-09-02] MEDS: ACETAMINOPHEN TAB 325 MG TAB PO PRN (19:43)
[2020-09-02] MEDS: QUEtiapine 200 MG TAB PO SCH (21:01)
[2020-09-02] MEDS: LITHIUM CARBONATE ER 450 MG TABLET.ER PO SCH (21:01)
[2020-09-03] MEDS: LEVOTHYROXINE 75 MCG TAB PO SCH (06:48)
[2020-09-03] MEDS: SELEGILINE 6 MG/24 HR TRANSDERM SCH (08:16)
[2020-09-03] MEDS: clonazePAM 0.5 MG TAB PO SCH (08:16)
[2020-09-03] MEDS: APIXABAN 5 MG TAB PO SCH (08:16)
[2020-09-03] MEDS: ATORVASTATIN 10 MG TAB PO SCH (08:16)
[2020-09-03] MEDS: METOPROLOL TARTRATE 50 MG TAB PO SCH (08:17)
[2020-09-03 08:20] VITALS: BP 110/73; PULSE 122; RESP 20; TEMP 95.7
--- NOTE | 2020-09-03 10:27 | P.DS ---
Providers Date of admission: 08/26/20 12:58 Expected date of discharge: 09/03/20 Attending physician: Elder Lopez MD Consults: 08/26/20 13:08 Consult Physician Routine Consulting Provider: Mindy Quinn Consult Reason/Comments: medical management Do you want consulting provider notified?: Already Contacted Primary care physician: Ted Roca - Discharge Diagnosis(es) (1) Major depressive disorder, recurrent severe without psychotic features Current Visit: Yes Status: Acute Priority: High Hospital Course: Admission HPI: Patient is a 70-year-old, , retired, male admitted to the inpatient psychiatric unit for depression with suicidal ideation with an attempt by overdose. Patient presented to the hospital on 08/24/2020 after overdosing on his home medications. The patient reportedly took 10 Catapres, 10 Seroquel, oxycodone, a nd metoprolol with the intention to take his own life. The patient reports that he woke up that morning and was alone in the house as his went to go babysit their grandchildren. He reports that he woke up in a panic and began expressing significant symptoms of depression including suicidal ideation. He states that he then had the pills in his hand and was standing by the sink for 35 minutes before he decided to overdose. He does express that this was an attempt to take his own life. The patient reports that he has been having ongoing issues with depression since the start of this pandemic in June 2019. He reports that prior to this, his psychiatric symptoms are well-controlled for the past 9 years on Celexa. He reports multiple issues contribute to his elevated depression and anxiety at the beginning of the pandemic including being off work, his family moving in, and quitting alcohol after 35 years of heavy drinking. The patient also expresses that he was also on Xanax for sleep and this was also tapered off. The patient does report that over the past year he has had multiple treatments for it this depression including ECT, ketamine, and has trialed medications such as trintellix, Zoloft, and is currently on the selegeline patch. In regards to his depressive symptoms the patient endorses feelings of hopelessness, helplessness, anhedonia, decreased appetite with a 35 pound weight loss over the past year, and suicidal ideation. He reports that this overdose was his first attempt at suicide. He does express elevated anxiety symptoms and panic that occurs in the mornings. The patient does not endorse any significant symptoms of mackenzie. He denies any periods of excessive energy, increased goal directed activity, or grandiosity. He reports no significant history of psychosis. He denies any auditory or visual hallucinations. He denies any paranoia or other delusions. Patient states that he first began treatment for mental illness in 2009 after expressing panic attacks. He has since been treated for depression and anxiety. The patient recalls prior trials of Xanax, Zoloft, Celexa, trintellix, and dayvigo. He is currently on a regimen of selegeline patches and seroquel. The patient reports 4 prior inpatient psychiatric hospitalizations. His last hospitalization was at [facility] one week prior to his overdose. Patient is currently open with Dr. Bain at [facility] in [place]. Aside from this overdose attempt, the patient denies any prior attempts at suicide. Hospital course: Upon admission to the unit patient was initially dysphoric and melancholic. Patient was however directable and agreeable to commence treatment. Patient got along well with other patients on the unit and followed unit protocol. He was also evaluated by the medical team for a history and physical examination. The patient was restarted on his home medication of Seroquel. As the patient is currently prescribed selegiline patches, and this medication is not on formulary, this medication was reintroduced into his treatment regimen after his but in the medication. The patient was offered different antidepressant medications but wants to give selegiline an adequate trial. The patient was adherent with his medications. Klonopin was also added to his regimen to address morning time anxiety and panic episodes. Over the course of ho spitalization, the patient gradually improved in regards to his future orientation and participated in individual and group therapies. CBT was performed with the patient throughout his hospital stay with a focus on coping skills for anxiety, mindfulness, and cognitive reframing. [place] was added to his regimen to address suicidality. As a hospital's patient continued, the patient displayed significant improvement in regards to his future orientation, anxiety, sleep, appetite, and a desire to live for himself and for his family. On the day of discharge, the patient is not reporting any suicidal or homicidal ideation, intention, and/or plan. He is not reporting any access to firearms or other weapons. He continues to express some anxiety and hopelessness but states that this is manageable at home at this time. He is not reporting any paranoia or other delusions. He denies any auditory or visual hallucinations. The patient was counseled on his medications and need for regular compliance and was encouraged to follow-up with his outpatient appointments for mental health and for primary care. The risks, benefits, and treatment alternatives of the medications were discussed with the patient in detail again prior to discharge. The patient was specifically counseled on Klonopin and the risks that poses for falls. We also discussed Seroquel as a risk factor for cardiac events. Prior to discharge, family meeting will be arranged by medical social consultant to answer any questions and ensure safety. The patient was also counseled on abstaining from substances such as alcohol and marijuana, especially in the context of Klonopin use. Mental status exam: General Appearance: Patient appears to be stated age is alert, pleasant, and cooperative. Patient is in no acute distress and has good hygiene and grooming Behavior: Patient is calmly seated without any agitated behavior. Eye contact is appropriate. Speech: Patient's speech is fluent and nonpressured. Spontaneous, normal tone, volume, and rate. Mood/Affect: Patient reports their mood is "I feel about the same", affect is euthymic with appropriate range. Suicidality/Homicidality: Patient denies having any suicidal or homicidal ideation intent or plan. Perceptions: Patient denies any auditory or visual hallucinations. Though content/process: There is no evidence of any delusional thought content and thought process is linear and goal-directed. The patient is future oriented. Memory and concentration: AOX3, grossly intact for the purposes of this session. Can spell "WORLD" backwards correctly. Judgment and insight: Improved with guarded prognosis Impression: Major depressive disorder, recurrent, severe, with anxious features. Plan: -Continue with discharge today as patient has improved and stabilized psy chiatrically and is not currently an imminent threat to himself and/or others. Patient will remain at chronically elevated risk for harm to self due to his age and racial demographics as well as his prior attempt at suicide. Protective factors include his strong family support, future orientation, and catholic police again suicide. -Continue medications: Seroquel 200 mg by mouth at bedtime for mood augmentation/insomnia selegiline patches 6 mg every 24 hours for depression Klonopin 0.5 mg by mouth every morning for management of morning anxiety and panic. lithium 450 mg by mouth at bedtime for augmentation of his antidepressant and to manage suicidality. -Patient was counseled on the need for medication compliance and appropriate follow-up at mental health and also primary care for medical issues. Patient verbalized understanding and agreed. -Social work to arrange for and conduct family meeting to ensure safety upon discharge and answer any questions/concerns. Social work also to arrange for patients follow up appointments for psychiatric care along with follow up with primary care provider. -Patient counseled on abstaining from recreational drugs and marijuana and alc ohol. Was informed/educated on the adverse effects on their physical and mental health. Patient verbally agreed and understood. -Patient was instructed to return to the hospital or seek immediate medical care if their psychiatric or medical symptoms do worsen or reoccur. -Psychoeducation and supportive therapy provided to patient. Risks and benefits of pharmacological treatment versus the risks and benefits of nontreatment weight and discussed. Informed consent discussion held. Common side effects of psychotropics discussed such as, but not limited to headache, GI disturbance, sexual dysfunction, movement disorders, sedation, and orthostatic hypotension. Life threatening and blackbox warnings of prescribed medications also discussed. Potential risks of operating a vehicle or heavy machinery discussed with patient at length. Advised on importance of compliance and a reliable and responsible manner. Patient advised to review FDA consumer labeling of all medications prior to taking. Patient verbalized understanding of potential risks, and agrees with current treatment plan. Patient advised to medically contact physician/emergency personnel if any acute changes in condition occur. Vital Signs Temp 95.7 F L 09/03/20 08:19 Pulse 122 H 09/03/20 08:19 Resp 20 09/03/20 08:19 BP 110/73 09/03/20 08:19 Pulse Ox 98 09/02/20 11:02 Intake & Output 09/02/20 09/03/20 09/03/20 18:59 06:59 18:59 Weight 96.4 kg Allergies Allergy/AdvReac Type Severity Reaction Status Date / Time No Known Allergies Allergy Verified 09/26/19 14:04 Patient Condition at Discharge: Stable Plan - Discharge Summary Discharge Rx Participant: No New Discharge Prescriptions: New clonazePAM [KlonoPIN] 0.5 mg PO DAILY PRN #30 tab PRN Reason: As needed for anxiety. [place] Carbonate ER [Lithobid] 450 mg PO HS 30 Days tablet.er QUEtiapine [SEROquel] 200 mg PO HS 30 Days tab Continue Apixaban [Eliquis] 5 mg PO BID Rosuvastatin Calcium 5 mg PO DAILY Metoprolol Tartrate [Lopressor] 50 mg PO BID Levothyroxine Sodium [Synthroid] 75 mcg PO DAILY Emsam 6mg/24 Hrs Patch 1 patch TRANSDERM DAILY 30 Days Discontinued QUEtiapine FUMARATE [SEROquel] 200 mg PO HS Discharge Medication List Apixaban [Eliquis] 5 mg PO BID 09/26/19 [History] Rosuvastatin Calcium 5 mg PO DAILY 09/26/19 [History] Levothyroxine Sodium [Synthroid] 75 mcg PO DAILY 08/24/20 [History] Metoprolol Tartrate [Lopressor] 50 mg PO BID 08/24/20 [History] Emsam 6mg/24 Hrs Patch 1 patch TRANSDERM DAILY 30 Days 09/03/20 [Rx] [place] Carbonate ER [Lithobid] 450 mg PO HS 30 Days tablet.er 09/03/20 [Rx] QUEtiapine [SEROquel] 200 mg PO HS 30 Days tab 09/03/20 [Rx] clonazePAM [KlonoPIN] 0.5 mg PO DAILY PRN #30 tab 09/03/20 [Rx] Activity/Diet/Wound Care/Special Instructions: Activity and diet as tolerated. Avoid the use of street drugs and alcohol. Take all medications as prescribed. When you are in need of refills on your medications please contact your medical provider and/or outpatient psychiatrist to have this done. Please go to scheduled outpatient appointment for aftercare treatment. If symptoms return or become worse, call the crisis line at and/or go to the nearest emergency room for evaluation.
== END 2020-09-03 17:40 | disposition home or self-care (01) | DRG 885 ==
LOC: 3MHU 12:58
PROVIDERS: ADMIT Psychiatry & Neurology Psychiatry; ATTEND Psychiatry & Neurology Psychiatry
DX: F33.2 Major depressive disorder, recurrent severe without psychotic features (principal); R45.851 Suicidal ideations; E78.5 Hyperlipidemia, unspecified; F41.0 Panic disorder [episodic paroxysmal anxiety]; G47.00 Insomnia, unspecified; I10 Essential (primary) hypertension; I48.91 Unspecified atrial fibrillation; Z79.899 Other long term (current) drug therapy

== ENCOUNTER 2021-12-30 07:53 | Inpatient (IN) | payer MEDICAID, MEDICARE ==
--- NOTE | 2021-12-30 08:12 | ED ---
Psych HPI - General Chief Complaint: Psychiatric Symptoms Stated Complaint: psychiatric Time Seen by Provider: 12/30/21 07:58 Source: patient, RN notes reviewed Mode of arrival: ambulatory Limitations: no limitations - History of Present Illness Initial Comments: 71-year-old male presents emergency Department with chief complaint of depression. Patient states she's been having worsening depression. He states she's not had a medication review her Justman over one year. Patient states that he was on lithium with all psychiatrist but states that his PCP about the fact that he never had it checked which concerned the patient. Patient states he said switched psychiatrist at a time. Patient states that depression, anxiety has been eating worse. He denies any new medications other than bleeding placed on Klonopin by his PCP. Denies any suicidal or homicidal. - Related Data Home Medications Medication Instructions Recorded Confirmed Apixaban [Eliquis] 5 mg PO BID 09/26/19 12/30/21 Rosuvastatin Calcium 5 mg PO DAILY@1500 09/26/19 12/30/21 Levothyroxine Sodium [Synthroid] 75 mcg PO AC-BRKFST 08/24/20 12/30/21 Citalopram Hydrobromide [CeleXA] 20 mg PO DAILY 12/30/21 12/30/21 [place] Carbonate 300 mg PO DAILY@1500 12/30/21 12/30/21 Metoprolol Tartrate [Lopressor] 50 mg PO HS 12/30/21 12/30/21 Metoprolol Tartrate [Lopressor] 100 mg PO DAILY 12/30/21 12/30/21 clonazePAM [KlonoPIN] 0.5 mg PO BID PRN 12/30/21 12/30/21 Previous Rx's Medication Instructions Recorded QUEtiapine [SEROquel] 200 mg PO HS 30 Days tab 09/03/20 Allergies Allergy/AdvReac Type Severity Reaction Status Date / Time No Known Allergies Allergy Verified 12/30/21 09:09 Review of Systems ROS Statement: Those systems with pertinent positive or pertinent negative responses have been documented in the HPI. ROS Other: All systems not noted in ROS Statement are negative. Past Medical History Past Medical History: Atrial Fibrillation, Hyperlipidemia, Hypertension, Thyroid Disorder History of Any Multi-Drug Resistant Organisms: None Reported Past Surgical History: Orthopedic Surgery Additional Past Surgical History / Comment(s): achilles tendon repair, carpal tunnel R wrist, veronica knee scope Past Anesthesia/Blood Transfusion Reactions: No Reported Reaction Past Psychological History: Anxiety, Depression Smoking Status: Never smoker Past Alcohol Use History: None Reported Past Drug Use History: None Reported - Past Family History Mother Family Medical History: No Reported History General Exam Limitations: no limitations General appearance: alert, in no apparent distress Head exam: Present: atraumatic, normocephalic, normal inspection Eye exam: Present: normal appearance, PERRL, EOMI. Absent: scleral icterus, conjunctival injection, periorbital swelling ENT exam: Present: normal exam, normal oropharynx, mucous membranes moist Neck exam: Present: normal inspection, full ROM. Absent: tenderness, meningi smus, lymphadenopathy Respiratory exam: Present: normal lung sounds bilaterally. Absent: respiratory distress, wheezes, rales, rhonchi, stridor Cardiovascular Exam: Present: regular rate, normal rhythm, normal heart sounds. Absent: systolic murmur, diastolic murmur, rubs, gallop, clicks GI/Abdominal exam: Present: soft, normal bowel sounds. Absent: distended, tenderness, guarding, rebound, rigid Neurological exam: Present: alert Psychiatric exam: Present: depressed Course Vital Signs 12/30/21 07:54 Temperature 98.4 F Pulse Rate 107 H Respiratory 20 Rate Blood Pressure 132/92 O2 Sat by Pulse 98 Oximetry Medical Decision Making - Medical Decision Making Patient was evaluated EPS case discussed with psychiatrist patient will be admitted for psychiatric treatment. Disposition Clinical Impression: Depression Disposition: TRANSFER TO PSYCH HOSP/UNIT Condition: Stable Referrals: Ted Roca MD [Primary Care Provider] - 1-2 days Time of Disposition: 13:22
[2021-12-30] MEDS ORDERED: clonazePAM 0.5 MG TAB PO PRN (17:20)
[2021-12-30] MEDS ORDERED: ACETAMINOPHEN TAB 325 MG TAB PO PRN (17:21)
[2021-12-30] MEDS ORDERED: MAG HYDROX/AL HYDROX/SIMETH 30 ML CUP PO PRN (17:21)
[2021-12-30] MEDS ORDERED: MAGNESIUM HYDROXIDE 2,400 MG/10 ML CUP PO PRN (17:21)
[2021-12-30] MEDS ORDERED: LORazepam 2 MG/ML INJ IM PRN (17:24)
[2021-12-30] MEDS: LORazepam 1 MG TAB PO PRN (18:06)
[2021-12-30] MEDS: METOPROLOL TARTRATE 50 MG TAB PO SCH (20:27)
[2021-12-30] MEDS: APIXABAN 5 MG TAB PO SCH (20:27)
[2021-12-30] MEDS ORDERED: QUEtiapine 200 MG TAB PO SCH (21:00)
--- NOTE | 2021-12-31 03:53 | P.CONS ---
History of Present Illness - Reason for Consult Consult date: 12/31/21 - History of Present Illness The patient is a 71-year-old male with a PMH of A. fib on Eliquis, hypertension, hyperlipidemia, and hypothyroidism who had presented to the emergency room with complaints of depression . The patient was admitted to the mental health unit where he was seen and evaluated. The patient reports a long-standing history of depression which had recently worsened. He reports no obvious triggers. Denied illicit substance or alcohol use. Denied tobacco use. Denied any active complaints at the time of interview. Denied experiencing chest discomfort, shortness of breath, fever, chills, cough, nausea, vomiting, abdominal pain, diarrhea. Reports compliance with his medications at home. Review of systems: Pertinent positives and negatives as discussed in HPI, a complete review of systems was performed and all other systems are negative. Physical examination: General: non toxic, no distress, appears at stated age, normal weight Derm: no unusual rashes/lesions, no unusual ecchymoses, warm, dry Head: atraumatic, normocephalic, symmetric Eyes: EOMI, no lid lag, anicteric sclera ENT: Nose and ears atraumatic, no thrush, no pharyngeal erythema Neck: trachea midline, supple Mouth: no lip lesion, mucus membranes moist Cardiovascular: S1S2 reg, no murmur, no edema Lungs: CTA bilateral, no rhonchi, no rales , no accessory muscle use Abdominal: soft, nontender to palpation, no guarding Ext: no gross muscle atrophy, no contractures, Neuro: No gross focal neuro deficits noted Psych: Alert, oriented, appropriate affect Assessment/plan Chronic conditions: A. fib, hypertension, hypothyroidism, hyperlipidemia -Continue with home meds Depression -As per psychiatry Thank you for allowing us to participate in the care of this patient. We will follow peripherally. Do not hesitate to contact us with questions. Someone can be reached from the [facility] hospitalist group at all hours of the day at [phone]. Past Medical History Past Medical History: Atrial Fibrillation, Hyperlipidemia, Hypertension, Thyroid Disorder History of Any Multi-Drug Resistant Organisms: None Reported Past Surgical History: Orthopedic Surgery Additional Past Surgical History / Comment(s): achilles tendon repair, carpal tunnel R wrist, veronica knee scope Past Anesthesia/Blood Transfusion Reactions: No Reported Reaction Smoking Status: Former smoker - Past Family History Mother Family Medical History: Hypertension Medications and Allergies Home Medications Medication Instructions Recorded Confirmed Type Apixaban [Eliquis] 5 mg PO BID 09/26/19 12/30/21 History Rosuvastatin Calcium 5 mg PO DAILY@1500 09/26/19 12/30/21 History Levothyroxine Sodium [Synthroid] 75 mcg PO AC-BRKFST 08/24/20 12/30/21 History QUEtiapine [SEROquel] 200 mg PO HS 30 Days tab 09/03/20 12/30/21 Rx Citalopram Hydrobromide [CeleXA] 20 mg PO DAILY 12/30/21 12/30/21 History [place] Carbonate 300 mg PO DAILY@1500 12/30/21 12/30/21 History Metoprolol Tartrate [Lopressor] 50 mg PO HS 12/30/21 12/30/21 History Metoprolol Tartrate [Lopressor] 100 mg PO DAILY 12/30/21 12/30/21 History clonazePAM [KlonoPIN] 0.5 mg PO BID PRN 12/30/21 12/30/21 History Allergies Allergy/AdvReac Type Severity Reaction Status Date / Time No Known Allergies Allergy Verified 12/30/21 09:09 Physical Exam Vitals: Vital Signs Temp Pulse Pulse Resp BP BP Pulse Ox 12/30/21 18:10 97.5 F L 119 H 18 156/96 96 12/30/21 07:54 98.4 F 107 H 20 132/92 98 Intake and Output 12/30/21 12/30/21 12/31/21 14:59 22:59 06:59 Other: Weight 104.326 kg 104.326 kg
[2021-12-31] MEDS: APIXABAN 5 MG TAB PO SCH ×2 (08:10→20:54)
[2021-12-31] MEDS: METOPROLOL TARTRATE 50 MG TAB PO SCH ×2 (08:10→20:55)
[2021-12-31] MEDS: LEVOTHYROXINE 75 MCG TAB PO SCH (08:10)
[2021-12-31] MEDS ORDERED: CITALOPRAM HYDROBROMIDE 20 MG TAB PO SCH (09:00)
[2021-12-31 13:50] LABS: Appearance,Urine Clear (Clear); Bilirubin,Urine Negative (Negative); Blood,Urine Negative (Negative); Color,Urine Yellow; Glucose,Urine (UA) Negative (Negative); Ketones,Urine Negative (Negative); Leukocyte Esterase,Urine Negative (Negative); Nitrite,Urine Negative (Negative); PH, Urine 5.5 (5.0-8.0); Protein,Urine Trace (Negative); Specific Gravity,Urine 1.024 (1.001-1.035); Urobilinogen,Urine <2.0 mg/dL (<2.0)
[2021-12-31 14:14] LABS: Amphetamine Screen,Urine Not Detected (NotDetected); Barbiturate Screen,Urine Not Detected (NotDetected); Benzodiazepines Screen,Urine Detected (NotDetected); Cocaine Screen,Urine Not Detected (NotDetected); Methadone Screen, Urine Not Detected (NotDetected); Opiate Screen,Urine Not Detected (NotDetected); Oxycodone Screen, Urine Not Detected (NotDetected); Phencyclidine Screen,Urine Not Detected (NotDetected); Tricyclic Antidepressant,Urine Detected (NotDetected); Urn Cannabinoid Scrn Not Detected (NotDetected)
[2021-12-31] MEDS ORDERED: LITHIUM CARBONATE 150 MG CAP PO SCH (15:00)
[2021-12-31] MEDS: LORazepam 1 MG TAB PO PRN (15:02)
[2021-12-31] MEDS: ATORVASTATIN 10 MG TAB PO SCH (15:02)
[2021-12-31 17:02] LABS: ALT 32 U/L (4-49); AST 29 U/L (17-59); African American GFR (CKD) 78 (>60 ml/min/1.73 sqM); Albumin 4.3 g/dL (3.5-5.0); Alkaline Phosphatase 48 U/L (38-126); Anion Gap 10 mmol/L; Blood Urea Nitrogen 21 mg/dL (9-20); Calcium 9.3 mg/dL (8.4-10.2); Carbon Dioxide 26 mmol/L (22-30); Chloride 100 mmol/L (98-107); Glucose 68 mg/dL (74-99); Lithium 0.2 mmol/L; Non-African American GFR(CKD) 68 (>60 ml/min/1.73 sqM); Potassium 4.4 mmol/L (3.5-5.1); Sodium 136 mmol/L (137-145); Total Bilirubin 1.3 mg/dL (0.2-1.3); Total Protein 6.1 g/dL (6.3-8.2)
[2021-12-31 17:09] LABS: Basophils # (A) 0.1 k/uL (0-0.2); Basophils % (A) 2 %; Eosinophils # (A) 0.2 k/uL (0-0.7); Eosinophils % (A) 4 %; HGB 14.9 gm/dL (13.0-17.5); Lymphocytes # (A) 1.6 k/uL (1.0-4.8); Lymphocytes % (A) 30 %; MCH 33.3 pg (25.0-35.0); MCHC 33.1 g/dL (31.0-37.0); MCV 100.8 fL (80.0-100.0); Mean Platelet Volume 7.5; Monocytes # (A) 0.6 k/uL (0-1.0); Monocytes % (A) 10 %; Neutrophils # (A) 2.8 k/uL (1.3-7.7); Neutrophils % (A) 52 %; Platelet Count 157 k/uL (150-450); RBC 4.46 m/uL (4.30-5.90); RDW 12.6 % (11.5-15.5); WBC 5.5 k/uL (3.8-10.6)
[2021-12-31] MEDS: QUEtiapine 50 MG TAB PO SCH (20:54)
[2021-12-31] MEDS: LITHIUM CARBONATE ER 450 MG TABLET.ER PO SCH (20:55)
[2022-01-01 00:54] LABS: Chol/HDL Ratio 4.16 Ratio; LDL Cholesterol,Calculated 86.8 mg/dL (0.0-131.0)
[2022-01-01] MEDS: LITHIUM CARBONATE ER 450 MG TABLET.ER PO SCH ×2 (09:06→21:07)
[2022-01-01] MEDS: METOPROLOL TARTRATE 50 MG TAB PO SCH ×2 (09:06→21:07)
[2022-01-01] MEDS: APIXABAN 5 MG TAB PO SCH ×2 (09:06→21:07)
[2022-01-01] MEDS: LEVOTHYROXINE 75 MCG TAB PO SCH (09:06)
[2022-01-01] MEDS: QUEtiapine 50 MG TAB PO SCH ×2 (09:07→21:07)
--- NOTE | 2022-01-01 12:18 | P.HP ---
Psychiatric H&P - . H&P Date: 12/31/21 History & Physical: Allergies Allergy/AdvReac Type Severity Reaction Status Date / Time No Known Allergies Allergy Verified 12/30/21 09:09 Vital Signs Temp 98.0 F 12/31/21 06:13 Pulse 112 H 12/31/21 06:13 Resp 16 12/31/21 06:13 BP 130/74 12/31/21 08:11 Pulse Ox 96 12/31/21 06:13 FiO2 Intake & Output 12/30/21 12/31/21 12/31/21 18:59 06:59 18:59 Weight 104.326 kg Laboratory Last Values Coronavirus (PCR) Not Detected (Not Detectd) 12/30/21 14:14 12/31/21 09:21 History of present illness: Gio Rizo is a 71 years old white male who was readmitted to this hospital since he was feeling depressed helpless and hopeless. He said his depression started in June 2019 during the pandemic and he was laid off. He said his depression gets better sometimes and returns lasting for about 6 weeks. he reports of following the symptoms of depression. He denies manic episodes. He denies suicidal thoughts but he feels he would be better off if he is . He does not have any plans to do anything to hurt himself. He denies hallucinations and delusional thinking. He said he had panic attacks during 2008 and and these days they come and go. He had difficulty in sleeping at night and has been taking Seroquel 200 mg at bedtime. He said he sleeps well at night but he cannot sleep during the daytime since he gets too anxious. He denies other psychiatric issues. He sees a psychiatrist as scheduled and a therapist on a weekly basis. Previous psychiatric history/drug and alcohol abuse: He was in psychiatric hospitals 7 times in the past. He has tried multiple antidepressants which would work for a short time and then stop working. He has tried Emsam which is an MA0I patch. The dose was gradually increased since it would stop working after the initial dose. Finally it had to be stopped because he had dermatitis with bleeding with the patch was applied. He said his psychiatrist is planning on starting him on Parnate when he sees him in January. He had 6 ECTs also. He is on lithium 300 mg at bedtime apparently for depression and takes Seroquel 200 mg at night to help him sleep better. He is also on Celexa 20 mg a day. He denies abusing drugs or alcohol and any current or past legal problems. Social history: He has college education. He did not have any issues with learning or discipline when he was going to school. He denies any history of abuse. He is lives with his and has 4 grownup children. Currently he is retired he was not in service. Family history: He denies any history of psychiatric or physical problems in the family. Previous medical history: He has atrial fibrillation hypertension hypothyroidism. He is not ALLERGIC to any medication. However he had some adverse effects from Emsam patch on his skin. Mental status examination: This is a right ambulatory male with good hygiene he has a small goatee and mustache and the skin around is well shaven. He does not show any psychomotor agitation or retardation. His speech is spontaneous relevant and goal-directed. His mood is euthymic and affect is appropriate to the thought content. He denies hallucinations and delusional thinking. He denies suicidal thoughts and homicidal thoughts. However he sometimes feels he is better off than alive since he is not getting better. He is well oriented with good memory concentration and general fund of knowledge. Strengths: History of employment and is retired. Source of income and health insurance. Supportive family. Weakness: Poor response to multiple medications. Diagnostic impression: Has the diagnosis of depressive disorder. But most likely he has bipolar depression considering his history. Treatment plan: He already had his physical examination. He was counseled about his condition and it was agreed to discontinue his Celexa since his response to antidepressant medications have been for and it is possible he has bipolar depression. Increase lithium to 900 mg a day, change Seroquel 200 mg at bedtime 250 mg twice a day for mood stabilization. Adjust the dose as necessary. He will have initial therapy group therapy and occupational therapy and recreational therapy in the unit. Discharge with outpatient follow-up.
--- NOTE | 2022-01-01 12:43 | P.PN ---
Progress Note - Text Progress Note Date: 01/01/22 S&O: Patient was seen in rounds. He said he slept well last night. He felt somewhat groggy after morning dose of Seroquel and went then they down in his bed. After a while he was feeling better attended the groups and was in the TV room when he was called for examination. He said today he is not feeling anxious like he did all these days. He also said he does not feel that he is better off either. Does not have any other issues or complaints. He cannot say if his depression is any better. However he is not feeling anxious. This is a white ambulatory male with good hygiene. He is polite friendly and cooperative. He does not appear to be in any distress like he did yesterday. He does not show any psychomotor agitation or retardation. His speech is spontaneous relevant and goal-directed. His mood is euthymic and affect is appropriate. Continues to deny hallucinations delusional thinking suicide and homicide thoughts. His sensorium is clear. A&P: Continue current medications, therapies including groups.
[2022-01-01] MEDS: ATORVASTATIN 10 MG TAB PO SCH (16:10)
[2022-01-02] MEDS: LEVOTHYROXINE 75 MCG TAB PO SCH (08:00)
[2022-01-02] MEDS: LITHIUM CARBONATE ER 450 MG TABLET.ER PO SCH ×2 (08:00→21:03)
[2022-01-02] MEDS: METOPROLOL TARTRATE 50 MG TAB PO SCH ×2 (08:00→21:03)
[2022-01-02] MEDS: APIXABAN 5 MG TAB PO SCH ×2 (08:00→21:03)
[2022-01-02] MEDS: QUEtiapine 50 MG TAB PO SCH (08:01)
--- NOTE | 2022-01-02 08:48 | P.PN ---
Progress Note - Text Progress Note Date: 01/02/22 S&O: Patient was seen in rounds. He took his morning Seroquel today just a few minutes ago and did not have enough time to see if he feels dizzy. He had felt dizzy yesterday in the morning after taking morning dose of Seroquel and he had laid down. He needs to be monitored closely for a few more days to make sure he is on right medication at the right dose. If it is not done it is possible that he may fall down and he is home with can result in injury. He was counseled about it and he agreed. He has been attending groups and socializes with other people. He said his depression is about the same but anxiety has decreased. Apparently his who is a nurse is concerned if he has any signs of dementia. He was given a quick test for it and does not appear to have any signs of dementia at this point. He was counseled about. This is a white ambulatory male with adequate hygiene. He does not show any psychomotor agitation or retardation. His speech is spontaneous relevant and goal-directed. His mood is euthymic and affect is appropriate. He denies hallucinations delusional thinking suicide and homicide thoughts. His sensorium is clear A&P: Observe him further today and if he still gets dizzy we need to adjust the dose of Seroquel for which he would need to be in the hospital for a day or 2 more. If this is not done while he is in the hospital it won't be possible to do it as an outpatient. In view of this he needs to be in the hospital at least for a day or 2.
--- NOTE | 2022-01-02 10:35 | P.PN ---
Progress Note - Text Progress Note Date: 01/02/22 S&O: Patient was feeling dizzy after his morning Seroquel dose. He was laying down in bed. He was counseled that I had to decrease his Seroquel 200 mg twice a day since 150 mg causes dizziness. He agreed with this. Plan: Decrease Seroquel 200 mg twice a day continue plans.
[2022-01-02] MEDS: ATORVASTATIN 10 MG TAB PO SCH (14:44)
[2022-01-02] MEDS: QUEtiapine 100 MG TAB PO SCH (21:03)
[2022-01-03] MEDS: LEVOTHYROXINE 75 MCG TAB PO SCH (06:01)
[2022-01-03 06:16] VITALS: TEMP 97.9
[2022-01-03] MEDS: QUEtiapine 100 MG TAB PO SCH (08:14)
[2022-01-03] MEDS: APIXABAN 5 MG TAB PO SCH (08:15)
[2022-01-03] MEDS: METOPROLOL TARTRATE 50 MG TAB PO SCH (08:15)
[2022-01-03] MEDS: LITHIUM CARBONATE ER 450 MG TABLET.ER PO SCH (08:15)
--- NOTE | 2022-01-03 09:41 | P.DS ---
Providers Date of admission: 12/30/21 17:15 Expected date of discharge: 01/03/22 Attending physician: Charlie Chamorro MD Consults: 12/30/21 17:21 Consult Physician Routine Consulting Provider: [facility] Consult Reason/Comments: H&P and medical Do you want consulting provider notified?: Yes Primary care physician: [facility] Course: He had his psychiatric H&P done on 12-31-21 by me and had medical H&P done by on the same day. After discussing his condition and poor response to multiple antidepressants except to MAOIs, bipolar 1 depression was suspected, he was counseled and he agreed to try lithium for mood stabilization. Since he said he was getting nervous during daytime, his Seroquel was split to twice a day to help him during daytime. However this caused him morning mild orthostatic hypotension and dizziness. So the Seroquel during daytime was decreased even with 100 mg he was still getting dizziness in the morning. In view of this it was agreed to go back to all at night Seroquel dose since he is on lithium which is a mood stabilizer and hopefully it will help him to stay relaxed during daytime. He continues to be calm polite and cooperative. Does not have any psychomotor agitation or retardation or hyperactivity. Speech is spontaneous and goal- directed. Continues to deny suicide and homicide thoughts. Denies ghosh llucinations and delusional thinking sensorium is clear. A&P: Discharge today. He will have outpatient follow-up with his psychiatrist. He was advised to get lithium level checked on 01/09/2022 in the morning before he takes his morning lithium dose. Plan - Discharge Summary Discharge Rx Participant: Yes New Discharge Prescriptions: New [place] Carbonate ER [Lithobid] 450 mg PO BID 30 Days #60 tab Magnesium Hydroxide [Milk of Magnesia Concentrate] 2,400 mg PO DAILY PRN ml PRN Reason: Constipation Mag Hydrox/Al Hydrox/Simeth [Maalox] 30 ml PO Q4HR PRN ml PRN Reason: Gi Upset Acetaminophen Tab [Tylenol] 650 mg PO Q4HR PRN tab PRN Reason: Mild Pain/Discomfort Continue Apixaban [Eliquis] 5 mg PO BID Rosuvastatin Calcium 5 mg PO DAILY@1500 Metoprolol Tartrate [Lopressor] 50 mg PO HS Levothyroxine Sodium [Synthroid] 75 mcg PO AC-BRKFST QUEtiapine [SEROquel] 200 mg PO HS 30 Days tab Discontinued clonazePAM [KlonoPIN] 0.5 mg PO BID PRN PRN Reason: Anxiety [place] Carbonate 300 mg PO DAILY@1500 Citalopram Hydrobromide [CeleXA] 20 mg PO DAILY Metoprolol Tartrate [Lopressor] 100 mg PO DAILY Discharge Medication List Apixaban [Eliquis] 5 mg PO BID 09/26/19 [History] Rosuvastatin Calcium 5 mg PO DAILY@1500 09/26/19 [History] Levothyroxine Sodium [Synthroid] 75 mcg PO AC-BRKFST 08/24/20 [History] QUEtiapine [SEROquel] 200 mg PO HS 30 Days tab 09/03/20 [Rx] Metoprolol Tartrate [Lopressor] 50 mg PO HS 12/30/21 [History] Acetaminophen Tab [Tylenol] 650 mg PO Q4HR PRN tab 01/03/22 [Rx] [place] Carbonate ER [Lithobid] 450 mg PO BID 30 Days #60 tab 01/03/22 [Rx] Mag Hydrox/Al Hydrox/Simeth [Maalox] 30 ml PO Q4HR PRN ml 01/03/22 [Rx] Magnesium Hydroxide [Milk of Magnesia Concentrate] 2,400 mg PO DAILY PRN ml 01/03/22 [Rx] Follow up Appointment(s)/Referral(s): [facility] [Outside] - 01/07/22 1:00 pm (01/07/22 with Kulwinder Lynne at 1pm 01/16/[address] Barlow at 3:30 PM) Ted Roca MD [Primary Care Provider] - 1-2 days Patient Instructions/Handouts: Depression (DC) Activity/Diet/Wound Care/Special Instructions: Avoid the use of street drugs and alcohol. Take all prescriptions as prescribe d. When you are in need of refills on your medications, please contact your medical provider and/or outpatient psychiatrist to have this done. Please go to scheduled outpatient appointment for aftercare treatment. If symptoms return or become worse, call the crisis line at and/or go to the nearest emergency room for evaluation. Care Plan Goals (MU): Check give her lithium level on 01/09/2022 and a blanket has to be drawn before you take your morning dose.
[2022-01-03 09:49] VITALS: BP 104/74; PULSE 99; RESP 20
== END 2022-01-03 13:06 | disposition still patient (30) | DRG 885 ==
LOC: EC 07:53 → 3MHU 17:15
PROVIDERS: ADMIT Psychiatry & Neurology Psychiatry; ATTEND Psychiatry & Neurology Psychiatry
DX: F31.30 Bipolar disorder, current episode depressed, mild or moderate severity, unspecified (principal); E03.9 Hypothyroidism, unspecified; I10 Essential (primary) hypertension; E78.5 Hyperlipidemia, unspecified; I48.91 Unspecified atrial fibrillation; F41.0 Panic disorder [episodic paroxysmal anxiety]; T43.595A Adverse effect of other antipsychotics and neuroleptics, initial encounter; I95.1 Orthostatic hypotension; Z79.890 Hormone replacement therapy; Z79.899 Other long term (current) drug therapy; Z79.01 Long term (current) use of anticoagulants; Z87.891 Personal history of nicotine dependence; Z82.49 Family history of ischemic heart disease and other diseases of the circulatory system
CPT/HCPCS: 80053; 80061; 80178; 80306; 81003; 82075; 83036; 84443; 85025; 87635; 99284

== ENCOUNTER → 2022-01-13 | Outpatient (CLI) | payer MEDICARE | END | disposition home or self-care (01) | LOC: LABWHC1 08:26 | PROVIDERS: ATTEND Psychiatry & Neurology Psychiatry | DX: Z53.9 Procedure and treatment not carried out, unspecified reason (principal) ==

== ENCOUNTER 2022-02-18 17:49 | Emergency (ER) | payer MEDICARE ==
[2022-02-18 18:28] VITALS: BP 117/85; PULSE 109; RESP 20; TEMP 98.6
--- NOTE | 2022-02-18 19:09 | ED ---
General Adult HPI - General Chief complaint: Psychiatric Symptoms Stated complaint: mental health Time Seen by Provider: 02/18/22 18:25 Source: patient, RN notes reviewed, old records reviewed Mode of arrival: ambulatory Limitations: no limitations - History of Present Illness Initial comments: This is a 72-year-old male who presents emergency Department stating he has a little long-standing history of depression. Patient states he become more depressed lately but is not suicidal but he is seeking help because he wants to get back on medications at his work in the past. Patient states he has not been doing any drinking. Patient states he still full is to golf he does nothing anymore and just lying around the house. Patient states he also feels just generalized weakness but he thinks secondary to his depression. Patient denies any recent fever chills or cough per patient denies any chest pain difficulty breathing first breath. Patient denies any abdominal pain patient denies nausea vomiting diarrhea. - Related Data Home Medications Medication Instructions Recorded Confirmed Apixaban [Eliquis] 5 mg PO BID 09/26/19 12/30/21 Rosuvastatin Calcium 5 mg PO DAILY@1500 09/26/19 12/30/21 Levothyroxine Sodium [Synthroid] 75 mcg PO AC-BRKFST 08/24/20 12/30/21 Metoprolol Tartrate [Lopressor] 50 mg PO HS 12/30/21 12/30/21 Previous Rx's Medication Instructions Recorded QUEtiapine [SEROquel] 200 mg PO HS 30 Days tab 09/03/20 Acetaminophen Tab [Tylenol] 650 mg PO Q4HR PRN tab 01/03/22 [place] Carbonate ER [Lithobid] 450 mg PO BID 30 Days #60 tab 01/03/22 Mag Hydrox/Al Hydrox/Simeth 30 ml PO Q4HR PRN ml 01/03/22 [Maalox] Magnesium Hydroxide [Milk of 2,400 mg PO DAILY PRN ml 01/03/22 Magnesia Concentrate] Allergies Allergy/AdvReac Type Severity Reaction Status Date / Time No Known Allergies Allergy Verified 02/18/22 18:28 Review of Systems ROS Statement: Those systems with pertinent positive or pertinent negative responses have been documented in the HPI. ROS Other: All systems not noted in ROS Statement are negative. Past Medical History Past Medical History: Atrial Fibrillation, Hyperlipidemia, Hypertension, Thyroid Disorder History of Any Multi-Drug Resistant Organisms: None Reported Past Surgical History: Orthopedic Surgery Additional Past Surgical History / Comment(s): achilles tendon repair, carpal tunnel R wrist, veronica knee scope Past Anesthesia/Blood Transfusion Reactions: No Reported Reaction Past Psychological History: Anxiety, Depression Smoking Status: Former smoker Past Alcohol Use History: None Reported Past Drug Use History: None Reported - Past Family History Mother Family Medical History: Hypertension General Exam - General Exam Comments Initial Comments: GENERAL: Patient is well-developed and well-nourished. Patient is nontoxic and well- hydrated and is in no acute distress. ENT: Neck is soft and supple. No significant lymphadenopathy is noted. Oropharynx is clear. Moist mucous membranes. Neck has full range of motion without e liciting any pain. EYES: The sclera were anicteric and conjunctiva were pink and moist. Extraocular movements were intact and pupils were equal round and reactive to light. Eyelids were unremarkable. PULMONARY: Unlabored respirations. Good breath sounds bilaterally. No audible rales rhonchi or wheezing was noted. CARDIOVASCULAR: Patient is a regular rate and rhythm at about 90 beats a minute. ABDOMEN: Soft and nontender with normal bowel sounds. SKIN: Skin is clear with no lesions or rashes and otherwise unremarkable. NEUROLOGIC: Patient is alert and oriented x3. Cranial nerves II through XII are grossly intact. Motor and sensory are also intact. Normal speech, volume and content. Symmetrical smile. MUSCULOSKELETAL: Normal extremities with adequate strength and full range of motion. LYMPHATICS: No significant lymphadenopathy is noted PSYCHIATRIC: Patient states he is depressed and has no suicidal ideations currently. Limitations: no limitations Course Vital Signs 02/18/22 18:25 Temperature 98.6 F Pulse Rate 109 H Respiratory 20 Rate Blood Pressure 117/85 O2 Sat by Pulse 99 Oximetry Medical Decision Making - Medical Decision Making EKG was interpreted by me. EKG shows atrial for ablation with rapid ventricular response at 105 bpm QRS is 133 QT interval 325 QTC is 386. Patient has a right bundle branch block. Patient has no ST segment elevation or depression. X-ray was interpreted by me. X-ray showed no infiltrate no other abnormalities. EPS evaluated the patient and determined the patient could follow-up outpatient. I'm in agreement with this. - Lab Data Result diagrams: 02/18/22 19:26 02/18/22 19:26 Lab Results 02/18/22 02/18/2202/18/22 Range/Units 19:26 19:26 19:26 WBC 6.0 (3.8-10.6) k/uL RBC 4.39 (4.30-5.90) m/uL Hgb 14.9 (13.0-17.5) gm/dL Hct 42.7 (39.0-53.0) % MCV 97.1 (80.0-100.0) fL MCH 33.8 (25.0-35.0) pg MCHC 34.8 (31.0-37.0) g/dL RDW 13.2 (11.5-15.5) % Plt Count 175 (150-450) k/uL MPV 7.9 Neutrophils % 53 % Lymphocytes % 29 % Monocytes % 9 % Eosinophils % 6 % Basophils % 1 % Neutrophils # 3.2 (1.3-7.7) k/uL Lymphocytes # 1.7 (1.0-4.8) k/uL Monocytes # 0.5 (0-1.0) k/uL Eosinophils # 0.3 (0-0.7) k/uL Basophils # 0.0 (0-0.2) k/uL Sodium 140 (137-145) mmol/L Potassium 4.0 (3.5-5.1) mmol/L Chloride 105 (98-107) mmol/L Carbon Dioxide 24 (22-30) mmol/L Anion Gap 11 mmol/L BUN 12 (9-20) mg/dL Creatinine 0.90 (0.66-1.25) mg/dL Est GFR (CKD-EPI)AfAm >90 (>60 ml/min/1.73 sqM) Est GFR (CKD-EPI)NonAf 86 (>60 ml/min/1.73 sqM) Glucose 97 (74-99) mg/dL Calcium 8.5 (8.4-10.2) mg/dL Magnesium 2.2 (1.6-2.3) mg/dL Total Bilirubin 0.6 (0.2-1.3) mg/dL AST 25 (17-59) U/L ALT 28 (4-49) U/L Alkaline Phosphatase 44 (38-126) U/L Total Protein 5.9 L (6.3-8.2) g/dL Albumin 4.1 (3.5-5.0) g/dL TSH 2.560 (0.465-4.680) mIU/L Urine Opiates Screen Not Detected (NotDetected) Ur Oxycodone Screen Not Detected (NotDetected) Urine Methadone Screen Not Detected (NotDetected) Ur Propoxyphene Screen Not Detected (NotDetected) Ur Barbiturates Screen Not Detected (NotDetected) U Tricyclic Antidepress Detected H (NotDetected) Ur Phencyclidine Scrn Not Detected (NotDetected) Ur Amphetamines Screen Not Detected (NotDetected) U Methamphetamines Scrn Not Detected (NotDetected) U Benzodiazepines Scrn Not Detected (NotDetected) Urine Cocaine Screen Not Detected (NotDetected) U Marijuana (THC) Screen Not Detected (NotDetected) Disposition Clinical Impression: Depression Disposition: HOME SELF-CARE Condition: Good Instructions (If sedation given, give patient instructions): Depression (ED) Is patient prescribed a controlled substance at d/c from ED?: No Referrals: Ted Roca MD [Primary Care Provider] - 1-2 days Time of Disposition: 21:31
[2022-02-18 19:35] LABS: Basophils % (A) 1 %; Eosinophils # (A) 0.3 k/uL (0-0.7); Eosinophils % (A) 6 %; HCT 42.7 % (39.0-53.0); HGB 14.9 gm/dL (13.0-17.5); Lymphocytes # (A) 1.7 k/uL (1.0-4.8); Lymphocytes % (A) 29 %; MCH 33.8 pg (25.0-35.0); MCHC 34.8 g/dL (31.0-37.0); MCV 97.1 fL (80.0-100.0); Mean Platelet Volume 7.9; Monocytes # (A) 0.5 k/uL (0-1.0); Monocytes % (A) 9 %; Neutrophils # (A) 3.2 k/uL (1.3-7.7); Neutrophils % (A) 53 %; Platelet Count 175 k/uL (150-450); RBC 4.39 m/uL (4.30-5.90); RDW 13.2 % (11.5-15.5)
[2022-02-18 19:45] LABS: ALT 28 U/L (4-49); AST 25 U/L (17-59); African American GFR (CKD) >90 (>60 ml/min/1.73 sqM); Albumin 4.1 g/dL (3.5-5.0); Alkaline Phosphatase 44 U/L (38-126); Anion Gap 11 mmol/L; Blood Urea Nitrogen 12 mg/dL (9-20); Calcium 8.5 mg/dL (8.4-10.2); Carbon Dioxide 24 mmol/L (22-30); Chloride 105 mmol/L (98-107); Glucose 97 mg/dL (74-99); Magnesium 2.2 mg/dL (1.6-2.3); Non-African American GFR(CKD) 86 (>60 ml/min/1.73 sqM); Sodium 140 mmol/L (137-145); Total Bilirubin 0.6 mg/dL (0.2-1.3); Total Protein 5.9 g/dL (6.3-8.2)
--- NOTE | 2022-02-18 20:08 | XR ---
EXAMINATION TYPE: XR chest 2V DATE OF EXAM: 02/18/2022 7:32 PM COMPARISON: None TECHNIQUE: XR chest 2V Frontal and lateral views of the chest. CLINICAL INDICATION:Male, 72 years old with history of Difficulty breathing ; FINDINGS: Lungs/Pleura: There is no evidence of pleural effusion, focal consolidation, or pneumothorax. Elevat ed left diaphragm. Pulmonary vascularity: Unremarkable. Heart/mediastinum: Cardiomediastinal silhouette is unremarkable. Musculoskeletal: No acute osseous pathology. IMPRESSION: No acute cardiopulmonary disease/process.
[2022-02-18 20:12] LABS: Amphetamine Screen,Urine Not Detected (NotDetected); Barbiturate Screen,Urine Not Detected (NotDetected); Benzodiazepines Screen,Urine Not Detected (NotDetected); Cocaine Screen,Urine Not Detected (NotDetected); Methadone Screen, Urine Not Detected (NotDetected); Opiate Screen,Urine Not Detected (NotDetected); Oxycodone Screen, Urine Not Detected (NotDetected); Phencyclidine Screen,Urine Not Detected (NotDetected); Tricyclic Antidepressant,Urine Detected (NotDetected); Urn Cannabinoid Scrn Not Detected (NotDetected)
== END 2022-02-18 21:55 | disposition home or self-care (01) ==
LOC: EC 17:49
DX: F32.A Depression, unspecified (principal); I48.91 Unspecified atrial fibrillation; I10 Essential (primary) hypertension; E78.5 Hyperlipidemia, unspecified; E07.9 Disorder of thyroid, unspecified; Z87.891 Personal history of nicotine dependence; Z79.899 Other long term (current) drug therapy
CPT/HCPCS: 36415; 71046; 80053; 80306; 82075; 83735; 84443; 85025; 93005; 99284

== ENCOUNTER 2022-03-12 18:04 | Emergency (ER) | payer MEDICARE ==
[2022-03-12 18:47] VITALS: RESP 18
[2022-03-12 19:58] LABS: Basophils % (A) 0 %; Eosinophils # (A) 0.4 k/uL (0-0.7); Eosinophils % (A) 4 %; HCT 45.5 % (39.0-53.0); Lymphocytes # (A) 1.6 k/uL (1.0-4.8); Lymphocytes % (A) 19 %; MCH 34.3 pg (25.0-35.0); MCHC 35.3 g/dL (31.0-37.0); MCV 97.2 fL (80.0-100.0); Mean Platelet Volume 8.3; Monocytes # (A) 0.5 k/uL (0-1.0); Monocytes % (A) 6 %; Neutrophils # (A) 5.9 k/uL (1.3-7.7); Neutrophils % (A) 67 %; Platelet Count 174 k/uL (150-450); RBC 4.68 m/uL (4.30-5.90); RDW 13.7 % (11.5-15.5); WBC 8.8 k/uL (3.8-10.6)
[2022-03-12 20:15] LABS: Albumin 4.6 g/dL (3.5-5.0); Calcium 9.5 mg/dL (8.4-10.2); Potassium 4.3 mmol/L (3.5-5.1); Total Bilirubin 1.2 mg/dL (0.2-1.3); Total Protein 6.5 g/dL (6.3-8.2)
[2022-03-12 20:24] LABS: Appearance,Urine Clear (Clear); Bilirubin,Urine Negative (Negative); Blood,Urine Negative (Negative); Color,Urine Yellow; Glucose,Urine (UA) Negative (Negative); Ketones,Urine Negative (Negative); Leukocyte Esterase,Urine Negative (Negative); Nitrite,Urine Negative (Negative); PH, Urine 6.5 (5.0-8.0); Protein,Urine Negative (Negative); Specific Gravity,Urine 1.016 (1.001-1.035); Urobilinogen,Urine <2.0 mg/dL (<2.0)
--- NOTE | 2022-03-12 20:24 | ED ---
General Adult HPI - General Chief complaint: Neuro Symptoms/Deficit Stated complaint: neuro issues Time Seen by Provider: 03/12/22 19:29 Source: patient, RN notes reviewed Mode of arrival: ambulatory - History of Present Illness Initial comments: Patient is a 72-year-old male presenting to the emergency room with complaints of short-term memory loss, slurred speech and intermittent bowel incontinence. He states that the symptoms have been intermittent and ongoing for the last 6 months presenting in July at which time he went to [facility] emergency room and had a CAT scan completed and then was transferred down to [facility] for repeat CAT scan. No intervention was completed at that time and he states that he was not TIA. He does have a past medical history significant for atrial fibrillation and is on anticoagulants. He reports that he is also being treated for depression and states that his medications have been changed a lot and that his mood is low but he denies any suicidal thoughts, hallucinations or delusions. He denies any current bowel incontinence headache, focal neurological deficits, weakness, dizziness, difficulty speaking, difficulty swallowing, abdominal pain, nausea, vomiting, chest pain, shortness of breath, fevers or chills. In addition to his atrial fibrillation and depression history is a past medical history significant for hypertension, hyperlipidemia and hypothyroidism. - Related Data Home Medications Medication Instructions Recorded Confirmed Apixaban [Eliquis] 5 mg PO BID 09/26/19 12/30/21 Rosuvastatin Calcium 5 mg PO DAILY@1500 09/26/19 12/30/21 Levothyroxine Sodium [Synthroid] 75 mcg PO AC-BRKFST 08/24/20 12/30/21 Metoprolol Tartrate [Lopressor] 50 mg PO HS 12/30/21 12/30/21 Previous Rx's Medication Instructions Recorded QUEtiapine [SEROquel] 200 mg PO HS 30 Days tab 09/03/20 Acetaminophen Tab [Tylenol] 650 mg PO Q4HR PRN tab 01/03/22 [place] Carbonate ER [Lithobid] 450 mg PO BID 30 Days #60 tab 01/03/22 Mag Hydrox/Al Hydrox/Simeth 30 ml PO Q4HR PRN ml 01/03/22 [Maalox] Magnesium Hydroxide [Milk of 2,400 mg PO DAILY PRN ml 01/03/22 Magnesia Concentrate] Allergies Allergy/AdvReac Type Severity Reaction Status Date / Time No Known Allergies Allergy Verified 03/12/22 18:18 Review of Systems ROS Statement: Those systems with pertinent positive or pertinent negative responses have been documented in the HPI. ROS Other: All systems not noted in ROS Statement are negative. Past Medical History Past Medical History: Atrial Fibrillation, Hyperlipidemia, Hypertension, Thyroid Disorder History of Any Multi-Drug Resistant Organisms: None Reported Past Surgical History: Orthopedic Surgery Additional Past Surgical History / Comment(s): achilles tendon repair, carpal tunnel R wrist, veronica knee scope Past Anesthesia/Blood Transfusion Reactions: No Reported Reaction Past Psychological History: Anxiety, Depression Smoking Status: Former smoker Past Alcohol Use History: None Reported Past Drug Use History: None Reported - Past Family History Mother Family Medical History: Hypertension General Exam General appearance: alert, in no apparent distress Head exam: Present: atraumatic, normocephalic, normal inspection Eye exam: Present: normal appearance, PERRL, EOMI. Absent: scleral icterus, conjunctival injection, periorbital swelling ENT exam: Present: normal exam, mucous membranes moist Neck exam: Present: normal inspection. Absent: tenderness, meningismus, lymp hadenopathy Respiratory exam: Present: normal lung sounds bilaterally. Absent: respiratory distress, wheezes, rales, rhonchi, stridor Cardiovascular Exam: Present: regular rate, irregular rhythm, normal heart sounds. Absent: systolic murmur, diastolic murmur, rubs, gallop, clicks GI/Abdominal exam: Present: soft, normal bowel sounds. Absent: distended, tenderness, guarding, rebound, rigid Extremities exam: Present: normal inspection, full ROM, normal capillary refill. Absent: tenderness, pedal edema, joint swelling, calf tenderness Back exam: Present: normal inspection Neurological exam: Present: alert, oriented X3, CN II-XII intact Expanded Patient oriented to: Present: person, place, time Speech: Present: fluid speech Motor strength exam: RUE: 5, LUE: 5, RLE: 5, LLE: 5 Eye Response: (4) open spontaneously Motor Response: (6) obeys commands Verbal Response: (5) oriented [place] Total: 15 Psychiatric exam: Present: flat affect Skin exam: Present: warm, dry, intact, normal color. Absent: rash Course Vital Signs 03/12/22 03/12/22 03/12/22 18:15 18:46 19:00 Temperature 97.5 F L Pulse Rate 109 H 105 H 103 H Respiratory 20 18 17 Rate Blood Pressure 150/98 145/102 143/104 O2 Sat by Pulse 97 98 100 Oximetry 03/12/22 03/12/22 03/12/22 20:00 20:25 21:02 Temperature Pulse Rate 95 100 98 Respiratory 18 18 18 Rate Blood Pressure 147/120 150/126 153/115 O2 Sat by Pulse 99 99 99 Oximetry 03/12/22 22:04 Temperature 98.1 F Pulse Rate 96 Respiratory 18 Rate Blood Pressure 152/114 O2 Sat by Pulse 99 Oximetry Medical Decision Making - Medical Decision Making 72-year-old male presented to the emergency room with complaints of ongoing short-term memory loss, slurred speech and occasional diarrheal bowel incontinence ongoing for 6 months without any recent changes in symptoms flares or current symptoms. Previous workup completed by [facility] due to lack of availability this testing along with hypertensive atrial fibrillation history will repeat computed tomography scan of the brain obtain EKG, check CBC, CMP and TSH. Will monitor closely. EKG shows atrial fibrillation with bundle branch blocks. CBC and CMP unre markable. CT of the brain without contrast image interpreted by me showing no mass, bleed or acute ischemic area. Radiologist report reviewed. TSH slightly elevated at 7.76 will defer adjustment of medication to primary care provider. Will discharge home in stable condition encourage follow-up with primary care provider. Encouraged continued adherence to anticoagulants for atrial fibrillation and hypertensive treatment. Case discussed with Dr. Michele. - Lab Data Result diagrams: 03/12/22 19:37 03/12/22 19:37 Lab Results 03/12/22 03/12/22 03/12/22 Range/Units 19:37 19:37 19:37 WBC 8.8 (3.8-10.6) k/uL RBC 4.68 (4.30-5.90) m/uL Hgb 16.0 (13.0-17.5) gm/dL Hct 45.5 (39.0-53.0) % MCV 97.2 (80.0-100.0) fL MCH 34.3 (25.0-35.0) pg MCHC 35.3 (31.0-37.0) g/dL RDW 13.7 (11.5-15.5) % Plt Count 174 (150-450) k/uL MPV 8.3 Neutrophils % 67 % Lymphocytes % 19 % Monocytes % 6 % Eosinophils % 4 % Basophils % 0 % Neutrophils # 5.9 (1.3-7.7) k/uL Lymphocytes # 1.6 (1.0-4.8) k/uL Monocytes # 0.5 (0-1.0) k/uL Eosinophils # 0.4 (0-0.7) k/uL Basophils # 0.0 (0-0.2) k/uL PT 11.6 (9.0-12.0) sec INR 1.1 (<1.2) APTT 26.0 (22.0-30.0) sec Sodium (137-145) mmol/L Potassium (3.5-5.1) mmol/L Chloride (98-107) mmol/L Carbon Dioxide (22-30) mmol/L Anion Gap mmol/L BUN (9-20) mg/dL Creatinine (0.66-1.25) mg/dL Est GFR (CKD-EPI)AfAm (>60 ml/min/1.73 sqM) Est GFR (CKD-EPI)NonAf (>60 ml/min/1.73 sqM) Glucose (74-99) mg/dL Calcium (8.4-10.2) mg/dL Total Bilirubin (0.2-1.3) mg/dL AST (17-59) U/L ALT (4-49) U/L Alkaline Phosphatase (38-126) U/L Troponin I (0.000-0.034) ng/mL Total Protein (6.3-8.2) g/dL Albumin (3.5-5.0) g/dL TSH (0.465-4.680) mIU/L Urine Color Yellow Urine Appearance Clear (Clear) Urine pH 6.5 (5.0-8.0) Ur Specific [place] 1.016 (1.001-1.035) Urine Protein Negative (Negative) Urine Glucose (UA) Negative (Negative) Urine Ketones Negative (Negative) Urine Blood Negative (Negative) Urine Nitrite Negative (Negative) Urine Bilirubin Negative (Negative) Urine Urobilinogen <2.0 (<2.0) mg/dL Ur Leukocyte Esterase Negative (Negative) 03/12/22 03/12/22 03/12/22 Range/Units 19:37 19:37 19:37 WBC (3.8-10.6) k/uL RBC (4.30-5.90) m/uL Hgb (13.0-17.5) gm/dL Hct (39.0-53.0) % MCV (80.0-100.0) fL MCH (25.0-35.0) pg MCHC (31.0-37.0) g/dL RDW (11.5-15.5) % Plt Count (150-450) k/uL MPV Neutrophils % % Lymphocytes % % Monocytes % % Eosinophils % % Basophils % % Neutrophils # (1.3-7.7) k/uL Lymphocytes # (1.0-4.8) k/uL Monocytes # (0-1.0) k/uL Eosinophils # (0-0.7) k/uL Basophils # (0-0.2) k/uL PT (9.0-12.0) sec INR (<1.2) APTT (22.0-30.0) sec Sodium 138 (137-145) mmol/L Potassium 4.3 (3.5-5.1) mmol/L Chloride 104 (98-107) mmol/L Carbon Dioxide 28 (22-30) mmol/L Anion Gap 6 mmol/L BUN 10 (9-20) mg/dL Creatinine 1.08 (0.66-1.25) mg/dL Est GFR (CKD-EPI)AfAm 79 (>60 ml/min/1.73 sqM) Est GFR (CKD-EPI)NonAf 69 (>60 ml/min/1.73 sqM) Glucose 96 (74-99) mg/dL Calcium 9.5 (8.4-10.2) mg/dL Total Bilirubin 1.2 (0.2-1.3) mg/dL AST 29 (17-59) U/L ALT 34 (4-49) U/L Alkaline Phosphatase 57 (38-126) U/L Troponin I <0.012 (0.000-0.034) ng/mL Total Protein 6.5 (6.3-8.2) g/dL Albumin 4.6 (3.5-5.0) g/dL TSH 7.760 H (0.465-4.680) mIU/L Urine Color Urine Appearance (Clear) Urine pH (5.0-8.0) Ur Specific [place] (1.001-1.035) Urine Protein (Negative) Urine Glucose (UA) (Negative) Urine Ketones (Negative) Urine Blood (Negative) Urine Nitrite (Negative) Urine Bilirubin (Negative) Urine Urobilinogen (<2.0) mg/dL Ur Leukocyte Esterase (Negative) - EKG Data EKG Comments: EKG completed 1838 interpreted by me revealing atrial fibrillation with bundle branch block and left anterior fascicular block ventricular rate 98 bpm, TN interval * ms, QRS duration 138 ms, QT/QTC 391/447 ms, PRT axes *, -75, 21 - Radiology Data Radiology results: report reviewed, image reviewed CT brain without contrast impression by radiologist mild atrophy. No acute intracranial abnormalities. Atrophy appears increased compared to old exam. Old exam comparison 11/16/2009 Disposition Clinical Impression: Depression, Poor short term memory, Hypertension Disposition: HOME SELF-CARE Condition: Stable Instructions (If sedation given, give patient instructions): Transient Ischemic Attack (ED) Additional Instructions: Please take your medications as prescribed. Please stay well hydrated. Please follow-up with your primary care provider. Please return to the Emergency Department if symptoms worsen or any other concerns. Is patient prescribed a controlled substance at d/c from ED?: No Referrals: Ted Roca MD [Primary Care Provider] - 1-2 days Time of Disposition: 22:05
[2022-03-12 20:27] LABS: INR 1.1 (<1.2); Prothrombin Time 11.6 sec (9.0-12.0)
[2022-03-12] MEDS ORDERED: METOPROLOL TARTRATE 5 MG/5 ML VIAL IVP STA (20:32)
--- NOTE | 2022-03-12 20:54 | CT ---
EXAMINATION TYPE: CT brain wo con DATE OF EXAM: 03/12/2022 COMPARISON: 11/16/2009 HISTORY: short term memory deficit and slurred speech, weakness CT DLP: 1202.4 mGycm Automated exposure control for dose reduction was used. Images of the brain obtained with no contrast. There is some cerebral cortical atrophy. There is no mass effect nor midline shift. No sign of intrac ranial hemorrhage. The calvarium is intact. Skull base is intact. There is normal aeration of the mas toid sinuses. IMPRESSION: Mild atrophy. No acute intracranial abnormality. Atrophy appears increased compared to old exam.
[2022-03-12] MEDS ORDERED: ACETAMINOPHEN TAB 500 MG TAB PO STA (21:34)
[2022-03-12] MEDS: METOPROLOL TARTRATE 5 MG/5 ML VIAL IVP SCH ×2 (21:54→21:59)
[2022-03-12 22:04] VITALS: BP 152/114; PULSE 96; TEMP 98.1
[2022-03-12 22:28] LABS: T4, Free (Free Thyroxine) 1.22 ng/dL (0.78-2.19)
== END 2022-03-12 22:18 | disposition home or self-care (01) ==
LOC: EC 18:04
DX: F32.A Depression, unspecified (principal); I48.91 Unspecified atrial fibrillation; I44.4 Left anterior fascicular block; E78.5 Hyperlipidemia, unspecified; E03.9 Hypothyroidism, unspecified; I10 Essential (primary) hypertension; Z87.891 Personal history of nicotine dependence; Z79.890 Hormone replacement therapy; Z79.01 Long term (current) use of anticoagulants; Z79.899 Other long term (current) drug therapy
CPT/HCPCS: 36415; 70450; 80053; 81003; 84439; 84443; 84484; 85025; 85610; 85730; 93005; 96374; 96376; 99285

== ENCOUNTER 2022-06-22 07:46 | Inpatient (IN) | payer MEDICARE ==
--- NOTE | 2022-06-22 08:21 | ED ---
Psych HPI - General Chief Complaint: Psychiatric Symptoms Stated Complaint: mental health Time Seen by Provider: 06/22/22 07:55 Source: patient, RN notes reviewed Mode of arrival: ambulatory Limitations: no limitations - History of Present Illness Initial Comments: 72-year-old male presents emergency department for psychiatric evaluation. Patient states he has severe depression, anxiety patient states she's been suffering with this for last 3 years his been in out of treatment he states from [place] he spent 11 days in the hospital he does have current therapist cc an medication. He is not stop them. He states he woke up the other day he had a severe anxiety, panic attack which is not triggered his worsening depression having thoughts of harming himself. He hasn't attempted suicide in the past in which she tried overdose on medication. Denies any self-harm currently denies alcohol or drug use. - Related Data Home Medications Medication Instructions Recorded Confirmed Apixaban [Eliquis] 5 mg PO BID 09/26/19 12/30/21 Rosuvastatin Calcium 5 mg PO DAILY@1500 09/26/19 12/30/21 Levothyroxine Sodium [Synthroid] 75 mcg PO AC-BRKFST 08/24/20 12/30/21 Metoprolol Tartrate [Lopressor] 50 mg PO HS 12/30/21 12/30/21 Previous Rx's Medication Instructions Recorded QUEtiapine [SEROquel] 200 mg PO HS 30 Days tab 09/03/20 Acetaminophen Tab [Tylenol] 650 mg PO Q4HR PRN tab 01/03/22 [place] Carbonate ER [Lithobid] 450 mg PO BID 30 Days #60 tab 01/03/22 Mag Hydrox/Al Hydrox/Simeth 30 ml PO Q4HR PRN ml 01/03/22 [Maalox] Magnesium Hydroxide [Milk of 2,400 mg PO DAILY PRN ml 01/03/22 Magnesia Concentrate] Allergies Allergy/AdvReac Type Severity Reaction Status Date / Time No Known Allergies Allergy Verified 03/12/22 18:18 Review of Systems ROS Statement: Those systems with pertinent positive or pertinent negative responses have been documented in the HPI. ROS Other: All systems not noted in ROS Statement are negative. Past Medical History Past Medical History: Atrial Fibrillation, Hyperlipidemia, Hypertension, Thyroid Disorder History of Any Multi-Drug Resistant Organisms: None Reported Past Surgical History: Orthopedic Surgery Additional Past Surgical History / Comment(s): achilles tendon repair, carpal tunnel R wrist, veronica knee scope Past Anesthesia/Blood Transfusion Reactions: No Reported Reaction Past Psychological History: Anxiety, Depression Smoking Status: Former smoker Past Alcohol Use History: None Reported Past Drug Use History: None Reported - Past Family History Mother Family Medical History: Hypertension General Exam Limitations: no limitations General appearance: alert, in no apparent distress Head exam: Present: atraumatic, normocephalic, normal inspection Eye exam: Present: normal appearance, PERRL, EOMI. Absent: scleral icterus, conjunctival injection, periorbital swelling ENT exam: Present: normal exam, mucous membranes moist Neck exam: Present: normal inspection, full ROM. Absent: tenderness, meningismus, lymphadenopathy Respiratory exam: Present: normal lung sounds bilaterally. Absent: respiratory distress, wheezes, rales, rhonchi, stridor Cardiovascular Exam: Present: regular rate, normal rhythm, normal heart sounds. Absent: systolic murmur, diastolic murmur, rubs, gallop, clicks Psychiatric exam: Present: depressed Course Vital Signs 06/22/22 07:51 Temperature 97.6 F Pulse Rate 97 Respiratory 20 Rate Blood Pressure 124/83 O2 Sat by Pulse 99 Oximetry Medical Decision Making - Medical Decision Making Was pt. sent in by a medical professional or institution (, PA, CODING CLERKS SUPERVISOR, urgent care, hospital, or residential...) When possible be specific @ -No Did you speak to anyone other than the patient for history (EMS, parent, family, police, friend...)? What history was obtained from this source @ -No Did you review nursing and triage notes (agree or disagree)? Why? @ -I reviewed and agree with nursing and triage notes Were old charts reviewed (outside hosp., previous admission, EMS record, old EKG, old radiological studies, urgent care reports/EKG's, residential records)? Report findings @ -No old charts were reviewed Differential Diagnosis (chest pain, altered mental status, abdominal pain women, abdominal pain men, vaginal bleeding, weakness, fever, dyspnea, syncope, headache, dizziness, GI bleed, back pain, seizure, CVA, palpatations, mental health, musculoskeletal)? @ -Depression, anxiety, PTSD, suicidal ideation EKG interpreted by me (3pts min.). @ -None X-rays interpreted by me (1pt min.). @ -None done CT interpreted by me (1pt min.). @ -None done U/S interpreted by me (1pt. min.). @ -None done What testing was considered but not performed or refused? (CT, X-rays, U/S, labs)? Why? @ -None What meds were considered but not given or refused? Why? @ -None Did you discuss the management of the patient with other professionals (professionals i.e. , PA, CODING CLERKS SUPERVISOR, lab, RT, psych nurse, transition social worker, bdc manager, teacher, commanding officer garage, major case detective)? Give summary @ -EPS is evaluated the patient talked psychiatrist recommended inpatient treatment Was smoking cessation discussed for >3mins.? @ -No Was critical care preformed (if so, how long)? @ -No Were there social determinants of health that impacted care today? How? (Homelessness, low income, unemployed, alcoholism, drug addiction, transportation, low edu. Level, literacy, decrease access to med. care, fdc, rehab)? @ -No Was there de-escalation of care discussed even if they declined (Discuss DNR or withdrawal of care, Hospice)? DNR status @ -No What co-morbidities impacted this encounter? (DM, HTN, Smoking, COPD, CAD, Cancer, CVA, ARF, Chemo, Hep., AIDS, mental health diagnosis, sleep apnea, morbid obesity)? @ -None Was patient admitted / discharged? Hospital course, mention meds given and route, prescriptions, significant lab abnormalities, going to OR and other pertinent info. @ -Admitted to [facility] for further psychiatric treatment Undiagnosed new problem with uncertain prognosis? @ -No Drug Therapy requiring intensive monitoring for toxicity (Heparin, Nitro, Insulin, Cardizem)? @ -No Were any procedures done? @ -No Diagnosis/symptom? @ -Depression Acute, or Chronic, or Acute on Chronic? @ -acute Uncomplicated (without systemic symptoms) or Complicated (systemic symptoms)? @ -uncomplicated Side effects of treatment? @ -No Exacerbation, Progression, or Severe Exacerbation? @ -No Poses a threat to life or bodily function? How? (Chest pain, [place], [place], pneumonia, PE, COPD, DKA, ARF, appy, cholecystitis, CVA, Diverticulitis, Homicidal, Florencia cidal, threat to staff... and all critical care pts) @ -No - Lab Data Result diagrams: 06/22/22 10:47 06/22/22 10:47 Lab Results 06/22/22 06/22/22 Range/Units 10:47 10:47 WBC 7.2 (3.8-10.6) k/uL RBC 4.96 (4.30-5.90) m/uL Hgb 15.9 (13.0-17.5) gm/dL Hct 45.9 (39.0-53.0) % MCV 92.4 (80.0-100.0) fL MCH 32.0 (25.0-35.0) pg MCHC 34.6 (31.0-37.0) g/dL RDW 12.8 (11.5-15.5) % Plt Count 156 (150-450) k/uL MPV 7.1 Neutrophils % 59 % Lymphocytes % 23 % Monocytes % 6 % Eosinophils % 9 % Basophils % 1 % Neutrophils # 4.2 (1.3-7.7) k/uL Lymphocytes # 1.7 (1.0-4.8) k/uL Monocytes # 0.4 (0-1.0) k/uL Eosinophils # 0.6 (0-0.7) k/uL Basophils # 0.1 (0-0.2) k/uL Sodium 136 L (137-145) mmol/L Potassium 4.7 (3.5-5.1) mmol/L Chloride 102 (98-107) mmol/L Carbon Dioxide 28 (22-30) mmol/L Anion Gap 6 mmol/L BUN 14 (9-20) mg/dL Creatinine 0.94 (0.66-1.25) mg/dL Est GFR (CKD-EPI)AfAm >90 (>60 ml/min/1.73 sqM) Est GFR (CKD-EPI)NonAf 82 (>60 ml/min/1.73 sqM) Glucose 106 H (74-99) mg/dL Calcium 8.7 (8.4-10.2) mg/dL Total Bilirubin 1.1 (0.2-1.3) mg/dL AST 23 (17-59) U/L ALT 26 (4-49) U/L Alkaline Phosphatase 66 (38-126) U/L Total Protein 5.9 L (6.3-8.2) g/dL Albumin 3.9 (3.5-5.0) g/dL Disposition Clinical Impression: Depression, Suicidal ideation Disposition: TRANSFER TO PSYCH HOSP/UNIT Referrals: Ted Roca MD [Primary Care Provider] - 1-2 days Time of Disposition: 11:25
[2022-06-22 10:53] LABS: Basophils # (A) 0.1 k/uL (0-0.2); Basophils % (A) 1 %; Eosinophils # (A) 0.6 k/uL (0-0.7); Eosinophils % (A) 9 %; HCT 45.9 % (39.0-53.0); HGB 15.9 gm/dL (13.0-17.5); Lymphocytes # (A) 1.7 k/uL (1.0-4.8); Lymphocytes % (A) 23 %; MCHC 34.6 g/dL (31.0-37.0); MCV 92.4 fL (80.0-100.0); Mean Platelet Volume 7.1; Monocytes # (A) 0.4 k/uL (0-1.0); Monocytes % (A) 6 %; Neutrophils # (A) 4.2 k/uL (1.3-7.7); Neutrophils % (A) 59 %; Platelet Count 156 k/uL (150-450); RBC 4.96 m/uL (4.30-5.90); RDW 12.8 % (11.5-15.5); WBC 7.2 k/uL (3.8-10.6)
[2022-06-22 11:10] LABS: ALT 26 U/L (4-49); AST 23 U/L (17-59); African American GFR (CKD) >90 (>60 ml/min/1.73 sqM); Albumin 3.9 g/dL (3.5-5.0); Alkaline Phosphatase 66 U/L (38-126); Anion Gap 6 mmol/L; Blood Urea Nitrogen 14 mg/dL (9-20); Calcium 8.7 mg/dL (8.4-10.2); Carbon Dioxide 28 mmol/L (22-30); Chloride 102 mmol/L (98-107); Glucose 106 mg/dL (74-99); Non-African American GFR(CKD) 82 (>60 ml/min/1.73 sqM); Potassium 4.7 mmol/L (3.5-5.1); Sodium 136 mmol/L (137-145); Total Bilirubin 1.1 mg/dL (0.2-1.3); Total Protein 5.9 g/dL (6.3-8.2)
[2022-06-22 11:32] LABS: Appearance,Urine Clear (Clear); Bilirubin,Urine Negative (Negative); Blood,Urine Negative (Negative); Color,Urine Yellow; Glucose,Urine (UA) Negative (Negative); Ketones,Urine Negative (Negative); Leukocyte Esterase,Urine Negative (Negative); Nitrite,Urine Negative (Negative); PH, Urine 6.5 (5.0-8.0); Protein,Urine Negative (Negative); Specific Gravity,Urine 1.017 (1.001-1.035)
[2022-06-22 11:48] LABS: Amphetamine Screen,Urine Not Detected (NotDetected); Barbiturate Screen,Urine Not Detected (NotDetected); Benzodiazepines Screen,Urine Not Detected (NotDetected); Cocaine Screen,Urine Not Detected (NotDetected); Methadone Screen, Urine Not Detected (NotDetected); Opiate Screen,Urine Not Detected (NotDetected); Oxycodone Screen, Urine Not Detected (NotDetected); Phencyclidine Screen,Urine Not Detected (NotDetected); Tricyclic Antidepressant,Urine Detected (NotDetected); Urn Cannabinoid Scrn Not Detected (NotDetected)
[2022-06-22] MEDS ORDERED: clonazePAM 0.5 MG TAB PO PRN (19:22)
[2022-06-22] MEDS: QUEtiapine 200 MG TAB PO SCH (22:01)
[2022-06-22] MEDS: APIXABAN 5 MG TAB PO SCH (22:01)
[2022-06-22] MEDS: ATORVASTATIN 10 MG TAB PO SCH (22:01)
[2022-06-23] MEDS: LEVOTHYROXINE 75 MCG TAB PO SCH (06:44)
[2022-06-23] MEDS: METOPROLOL TARTRATE 50 MG TAB PO SCH ×2 (10:46→20:33)
[2022-06-23] MEDS: clonazePAM 0.5 MG TAB PO SCH (10:46)
[2022-06-23] MEDS: APIXABAN 5 MG TAB PO SCH ×2 (10:46→20:33)
[2022-06-23] MEDS: LITHIUM CARBONATE ER 450 MG TABLET.ER PO SCH (10:46)
[2022-06-23] MEDS: EMSAM TRANSDERM SCH (10:47)
[2022-06-23] MEDS ORDERED: TRIAMCINOLONE 0.1% CREAM 80 GM TUBE TOPICAL PRN (14:31)
[2022-06-23] MEDS ORDERED: MAGNESIUM HYDROXIDE 2,400 MG/10 ML CUP PO PRN (14:32)
[2022-06-23] MEDS ORDERED: MAG HYDROX/AL HYDROX/SIMETH 30 ML CUP PO PRN (14:32)
[2022-06-23] MEDS ORDERED: LORazepam 1 MG TAB PO PRN (14:32)
[2022-06-23] MEDS ORDERED: LORazepam 2 MG/ML INJ IM PRN (14:44)
[2022-06-23] MEDS: QUEtiapine 200 MG TAB PO SCH (20:33)
[2022-06-23] MEDS: ATORVASTATIN 10 MG TAB PO SCH (20:33)
--- NOTE | 2022-06-23 23:03 | P.CONS ---
History of Present Illness - Reason for Consult Consult date: 06/23/22 - History of Present Illness The patient is a 72-year-old male with a PMH of hypothyroidism, hyperlipidemia, Afib on Eliquis, and hypertension who presents to the emergency room with complaints of depression and suicidal ideation. The patient reports that he was speaking with his and may have mentioned some thoughts of harming himself at which point she activated EMS. The patient denies physical complaints at the time of interview. Denied experiencing chest discomfort, shortness of breath, fever, chills, cough, nausea, vomiting, abdominal pain, diarrhea. Patient denied tobacco, alcohol, or substance use. Reports compliance with his medications at home. Review of systems: Pertinent positives and negatives as discussed in HPI, a complete review of systems was performed and all other systems are negative. Physical examination: General: non toxic, no distress, appears at stated age, obese Derm: no unusual rashes/lesions, no unusual ecchymoses, warm, dry Head: atraumatic, normocephalic, symmetric Eyes: EOMI, no lid lag, anicteric sclera ENT: Nose and ears atraumatic, no thrush, no pharyngeal erythema Neck: trachea midline, supple Mouth: no lip lesion, mucus membranes moist Cardiovascular: S1S2 reg, no murmur, no edema Lungs: CTA bilateral, no rhonchi, no rales , no accessory muscle use Abdominal: soft, nontender to palpation, no guarding Ext: no gross muscle atrophy, no contractures, Neuro: No gross focal neuro deficits noted Psych: Alert, oriented, appropriate affect Assessment: Chronic conditions: Hypertension, hyperlipidemia, hypothyroidism, A. fib Depression and suicidal ideation Imaging: None performed Data Review: Laboratory evaluation was reviewed with WBC count 7.2, hemoglobin 15.9, platelets 156, sodium 136, potassium 4.7, BUN 14, creatinine 0.4, AST 23, ALT 26, unremarkable UA, urine toxicology positive for TCAs, and coronavirus PCR negative Plan: Continue with home medications: -Synthroid 75 g by mouth daily -Eliquis 5 mg by mouth twice a day -Lopressor 50 mg by mouth daily -Crestor 5 mg by mouth daily at bedtime -Lopressor 100 mg by mouth daily at bedtime Thank you for allowing us to participate in the care of this patient. We will follow peripherally. Do not hesitate to contact us with questions. Someone can be reached from the [facility] hospitalist group at all hours of the day at [phone]. Past Medical History Past Medical History: Atrial Fibrillation, Hyperlipidemia, Hypertension, Thyroid Disorder History of Any Multi-Drug Resistant Organisms: None Reported Past Surgical History: Orthopedic Surgery Additional Past Surgical History / Comment(s): achilles tendon repair, carpal tunnel R wrist, veronica knee scope Past Anesthesia/Blood Transfusion Reactions: No Reported Reaction Past Psychological History: Anxiety, Depression Smoking Status: Former smoker Past Alcohol Use History: None Reported Past Drug Use History: None Reported - Past Family History Mother Family Medical History: Hypertension Medications and Allergies Home Medications Medication Instructions Recorded Confirmed Type Apixaban [Eliquis] 5 mg PO BID 09/26/19 06/22/22 History Rosuvastatin Calcium 5 mg PO HS 09/26/19 06/22/22 History Levothyroxine Sodium [Synthroid] 75 mcg PO DAILY 08/24/20 06/22/22 History QUEtiapine [SEROquel] 200 mg PO HS 30 Days tab 09/03/20 06/22/22 Rx Metoprolol Tartrate [Lopressor] 50 mg PO DAILY 12/30/21 06/22/22 History Emsam 12mg/24hr Patch 1 patch TRANSDERM DAILY 06/22/22 06/22/22 History [place] Carbonate ER [Lithobid] 450 mg PO DAILY 06/22/22 06/22/22 History Metoprolol Tartrate [Lopressor] 100 mg PO HS 06/22/22 06/22/22 History Triamcinolone 0.1% Cream [Kenalog 1 applic TOPICAL BID PRN 06/22/22 06/22/22 History 0.1% Cream] clonazePAM [KlonoPIN] 0.5 mg PO DAILY 06/22/22 06/22/22 History clonazePAM [KlonoPIN] 0.5 mg PO DAILY PRN 06/22/22 06/22/22 History Allergies Allergy/AdvReac Type Severity Reaction Status Date / Time No Known Allergies Allergy Verified 06/22/22 13:55 Physical Exam Vitals: Vital Signs Temp Pulse Pulse Resp BP BP Pulse Ox 06/23/22 20:30 102 H 169/72 06/23/22 19:10 97.8 F 96 12 152/97 99 06/23/22 10:48 97.8 F 91 18 138/96 98 Intake and Output 06/23/22 06/23/22 06/24/22 14:59 22:59 06:59 Other: Weight 104.1 kg Results CBC & Chem 7: 06/22/22 10:47 06/22/22 10:47
[2022-06-24] MEDS: LEVOTHYROXINE 75 MCG TAB PO SCH (06:33)
[2022-06-24] MEDS: ACETAMINOPHEN TAB 325 MG TAB PO PRN (09:25)
[2022-06-24] MEDS: APIXABAN 5 MG TAB PO SCH ×2 (09:25→20:53)
[2022-06-24] MEDS: LITHIUM CARBONATE ER 450 MG TABLET.ER PO SCH (09:26)
[2022-06-24] MEDS: METOPROLOL TARTRATE 50 MG TAB PO SCH ×2 (09:29→20:54)
[2022-06-24] MEDS: clonazePAM 0.5 MG TAB PO SCH (09:32)
[2022-06-24] MEDS: EMSAM TRANSDERM SCH (11:08)
[2022-06-24] MEDS ORDERED: EMSAM TRANSDERM SCH (12:00)
[2022-06-24] MEDS ORDERED: OLANZapine 5 MG TAB PO PRN (12:26)
[2022-06-24] MEDS ORDERED: OLANZapine 10 MG VIAL IM PRN (12:26)
--- NOTE | 2022-06-24 13:28 | P.HP ---
Psychiatric H&P - . H&P Date: 06/24/22 History & Physical: Allergies Allergy/AdvReac Type Severity Reaction Status Date / Time No Known Allergies Allergy Verified 06/22/22 13:55 Vital Signs Temp 98.0 F 06/24/22 06:32 Pulse 114 H 06/24/22 08:00 Resp 16 06/24/22 06:32 BP 126/78 06/24/22 08:00 Pulse Ox 95 06/24/22 06:32 FiO2 Intake & Output 06/23/22 06/24/22 06/24/22 18:59 06:59 18:59 Weight 104.1 kg Laboratory Last Values WBC 7.2 k/uL (3.8-10.6) 06/22/22 10:47 RBC 4.96 m/uL (4.30-5.90) 06/22/22 10:47 Hgb 15.9 gm/dL (13.0-17.5) 06/22/22 10:47 Hct 45.9 % (39.0-53.0) 06/22/22 10:47 MCV 92.4 fL (80.0-100.0) 06/22/22 10:47 MCH 32.0 pg (25.0-35.0) 06/22/22 10:47 MCHC 34.6 g/dL (31.0-37.0) 06/22/22 10:47 RDW 12.8 % (11.5-15.5) 06/22/22 10:47 Plt Count 156 k/uL (150-450) 06/22/22 10:47 MPV 7.1 06/22/22 10:47 Neutrophils % 59 % 06/22/22 10:47 Lymphocytes % 23 % 06/22/22 10:47 Monocytes % 6 % 06/22/22 10:47 Eosinophils % 9 % 06/22/22 10:47 Basophils % 1 % 06/22/22 10:47 Neutrophils # 4.2 k/uL (1.3-7.7) 06/22/22 10:47 Lymphocytes # 1.7 k/uL (1.0-4.8) 06/22/22 10:47 Monocytes # 0.4 k/uL (0-1.0) 06/22/22 10:47 Eosinophils # 0.6 k/uL (0-0.7) 06/22/22 10:47 Basophils # 0.1 k/uL (0-0.2) 06/22/22 10:47 Sodium 136 mmol/L (137-145) L 06/22/22 10:47 Potassium 4.7 mmol/L (3.5-5.1) 06/22/22 10:47 Chloride 102 mmol/L (98-107) 06/22/22 10:47 Carbon Dioxide 28 mmol/L (22-30) 06/22/22 10:47 Anion Gap 6 mmol/L 06/22/22 10:47 BUN 14 mg/dL (9-20) 06/22/22 10:47 Creatinine 0.94 mg/dL (0.66-1.25) 06/22/22 10:47 Est GFR (CKD-EPI)AfAm >90 (>60 ml/min/1.73 sqM) 06/22/22 10:47 Est GFR (CKD-EPI)NonAf 82 (>60 ml/min/1.73 sqM) 06/22/22 10:47 Glucose 106 mg/dL (74-99) H 06/22/22 10:47 Calcium 8.7 mg/dL (8.4-10.2) 06/22/22 10:47 Total Bilirubin 1.1 mg/dL (0.2-1.3) 06/22/22 10:47 AST 23 U/L (17-59) 06/22/22 10:47 ALT 26 U/L (4-49) 06/22/22 10:47 Alkaline Phosphatase 66 U/L (38-126) 06/22/22 10:47 Total Protein 5.9 g/dL (6.3-8.2) L 06/22/22 10:47 Albumin 3.9 g/dL (3.5-5.0) 06/22/22 10:47 Urine Color Yellow 06/22/22 10:47 Urine Appearance Clear (Clear) 06/22/22 10:47 Urine pH 6.5 (5.0-8.0) 06/22/22 10:47 Ur Specific [place] 1.017 (1.001-1.035) 06/22/22 10:47 Urine Protein Negative (Negative) 06/22/22 10:47 Urine Glucose (UA) Negative (Negative) 06/22/22 10:47 Urine Ketones Negative (Negative) 06/22/22 10:47 Urine Blood Negative (Negative) 06/22/22 10:47 Urine Nitrite Negative (Negative) 06/22/22 10:47 Urine Bilirubin Negative (Negative) 06/22/22 10:47 Urine Urobilinogen 2.0 mg/dL (<2.0) 06/22/22 10:47 Ur Leukocyte Esterase Negative (Negative) 06/22/22 10:47 Urine Opiates Screen Not Detected (NotDetected) 06/22/22 10:47 Ur Oxycodone Screen Not Detected (NotDetected) 06/22/22 10:47 Urine Methadone Screen Not Detected (NotDetected) 06/22/22 10:47 Ur Propoxyphene Screen Not Detected (NotDetected) 06/22/22 10:47 Ur Barbiturates Screen Not Detected (NotDetected) 06/22/22 10:47 U Tricyclic Antidepress Detected (NotDetected) H 06/22/22 10:47 Ur Phencyclidine Scrn Not Detected (NotDetected) 06/22/22 10:47 Ur Amphetamines Screen Not Detected (NotDetected) 06/22/22 10:47 U Methamphetamines Scrn Not Detected (NotDetected) 06/22/22 10:47 U Benzodiazepines Scrn Not Detected (NotDetected) 06/22/22 10:47 [place] 0.5 mmol/L 06/22/22 19:42 Urine Cocaine Screen Not Detected (NotDetected) 06/22/22 10:47 U Marijuana (THC) Screen Not Detected (NotDetected) 06/22/22 10:47 Coronavirus (PCR) Not Detected (Not Detectd) 06/22/22 10:47 06/24/22 12:06 IDENTIFYING DATA: Patient is a [72-year-old male is currently lives with his in a house, he is unemployed, he has 4 kids.] HPI: Patient presented to the hospital yesterday complaining the ER of depression and anxiety for the past 3 years. Patient currently has been in and out of treatment and currently has a psychiatrist that he'll use Dr. Bain. Patient was complaining of suicidal thoughts in the ER as well. He was positive for TCAs and his urine drug screen. Patient's lithium level was 0.5. Patient was seen today and agreeable to typewriter ribbon winder in the office. He states that he has had a "three-year problem" and states that it has been getting worse. He claims that he has been feeling "miserable since the summer". He states that for the past 7 days he is having "horrible anxiety" and also has been endorsing increasing depression. He states that the depression is mainly been from the anxiety and feeling sad. He claims that he has been taking his medications every day and has undergone a lot of medication changes in the past. He listed off different psychiatric medications and other treatment. He is undergone. He states that he does not know whether he has bipolar or depression. He states that currently he is on the Emsam patch which has helped him in the past but not any longer. he gave noclear history of specific manic episodes but sttaes that overall he is unsure. Claims that his sleep has been fair with the Seroquel, but it is been on and off. Patient denies any current suicidal or homicidal ideations intent or plan. At this time patient denies any auditory or visual hallucinations. Patient denies any current flight of ideas racing thoughts and increased in goal directed behavior. Patient admits to using no recreational drugs or cigarettes. PAST PSYCHIATRIC HISTORY: Patient states that he has a history of depression and anxiety. Patient has been on several psychiatric medications in the past includinglithium, vraylar, emsam, seroquel. he also states that he has tried TMS, ECT and ketamine infusions aswell that have not been helpful. Patient was last psychiatrically admitted mental health unit in December 2021. Patient clinic falls up with Dr. Bain as his psychiatrist at [facility] and has a therapist currently at [facility]. Claims that he had 1 overdose suicide attempt in the past. Past Medical History: Atrial Fibrillation, Hyperlipidemia, Hypertension, Thyroid Disorder History of Any Multi-Drug Resistant Organisms: None Reported Past Surgical History: Orthopedic Surgery Additional Past Surgical History / Comment(s): achilles tendon repair, carpal tunnel R wrist, veronica knee scope Past Anesthesia/Blood Transfusion Reactions: No Reported Reaction Past Psychological History: Anxiety, Depression Smoking Status: Former smoker Past Alcohol Use History: None Reported Past Drug Use History: None Reported ALLERGIES: as per EMR CHEMICAL DEPENDENCY HISTORY: as per HPI FAMILY PSYCHIATRIC/SUBSTANCE USE HISTORY: [denies] SOCIAL HISTORY: Patient was born and raised in [place]. He states that he completed high school and also college. 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 He denies any legal history. He currently is at his in a house, he is unemployed/retired at this time. He has 4 kids. MENTAL STATUS EXAM: General Appearance: Patient appears to be tall, balding, wearing glasses, stated age is alert, [directable, and attempts to cooperate]. Patient appears to have fair hygiene and grooming. Behavior: Patient is seated without any agitated behavior. anxious at times. Speech: Patient's speech is [fluent and nonpressured.] hesitant/ Mood/Affect: Patient reports their mood is [depressed and very anxious], affect is congruent and constricted. Suicidality/Homicidality: Patient denies having any homicidal ideation intent or plan. [Denies any suicidal ideations intent or plan] Perceptions: Patient denies any visual hallucinations [and denies any auditory hallucinations] Though content/process: [There is no evidence of any delusional thought content and thought process is linear and goal-directed.] focused on his sx. Memory and concentration: AOX3, grossly intact for the purposes of this session. Can spell "WORLD" backwards Judgment and insight: fair STRENGTHS/WEAKNESSES: strength is that patient is [resilient]. Weakness is that patient [has a history of chronic psych sx, several failed treatments in the past.] INTELLECT: [average] IMPRESSIONS: []Depressive disorder NOS, likely bipolar depression vs MDD generalized anxiety disorder with panic attacks PLAN: -Patient is admitted under [voluntary] status to MHU for stabilization of psychiatric symptoms and safety. Patient has []signed [adult voluntary form and] [medication consent] and is placed in patient's chart. -Medications : Will start patient on [lithium increased dose 300 mg twice a day for mood stabilization/suicidal thoughts, decrease Seroquel to 100 mg daily at bedtime with a plan to start Zyprexa tomorrow. Melatonin 5 mg daily at bedtime for sleep. d/c EMsam patch and replace with prozac. scheduled klonopin decreased to 0.5 mg daily for anxiety with plan to titrate down further/off.] -Ativan/klonopin [and zyprexa] PRN for agitation/aggression -Patient was informed of the risks, benefits and side effects of the medication and patient verbally consented to taking the medications. Patient signed med consent form and was placed in chart. -Internal Medicine consult to perform medical evaluation and physical. -NRT - not needed as patient does not smoke. -SW on board for discharge planning. Encourage patient to participate in groups to work on coping skills. 06/24/22 13:18 06/24/22 13:27
[2022-06-24] MEDS: ATORVASTATIN 10 MG TAB PO SCH (20:53)
[2022-06-24] MEDS: LITHIUM CARBONATE 300 MG CAP PO SCH (20:53)
[2022-06-24] MEDS: QUEtiapine 100 MG TAB PO SCH (20:54)
[2022-06-24] MEDS ORDERED: MELATONIN 5 MG TABLET PO SCH (21:00)
[2022-06-24 23:31] LABS: Chol/HDL Ratio 3.82 Ratio
[2022-06-25] MEDS: LEVOTHYROXINE 75 MCG TAB PO SCH (08:44)
[2022-06-25] MEDS: METOPROLOL TARTRATE 50 MG TAB PO SCH ×2 (08:44→20:23)
[2022-06-25] MEDS: clonazePAM 0.5 MG TAB PO SCH (08:44)
[2022-06-25] MEDS: APIXABAN 5 MG TAB PO SCH ×2 (08:45→20:23)
[2022-06-25] MEDS: LITHIUM CARBONATE 300 MG CAP PO SCH ×2 (08:45→20:23)
[2022-06-25] MEDS ORDERED: FLUoxetine HCL 20 MG CAP PO SCH (09:00)
--- NOTE | 2022-06-25 11:42 | P.PN ---
Progress Note - Text Progress Note Date: 06/25/22 Interval History: Patient was seen sitting in a group today doing a puzzle and was directable and agreeable to speak with production underwriter in the office. Patient appears to be somewhat constricted today however did state that he is feeling a bit better this morning. He states that he got up well and took a shower however also states that he was feeling rather plateaued in terms of his mood. He claims that he is not doing worse compared to yesterday however feels about the same. He is denying any anxiety today. We spoke more about his medications and patient took out his emsampatch today and gave it to nurse for disposal. He statesthat he was able to sleep well last night, has a fair appetite. At this time patient denies any suicidal or homical ideations, intent or plan. Patient denies any auditory, visual hallucinations and denies any paranoia or delusions. Patient denies any side effects from the medications and has been compliant with meds. Mental Status Exam: General Appearance: Patient appears to be tall, balding, wearing glasses, stated age is alert, directable, and attempts to cooperate. Patient appears to have fair hygiene and grooming. Behavior: Patient is seated without any agitated behavior. less anxious today, more constricted. Speech: Patient's speech is fluent and nonpressured. hesitant, improving midlly Mood/Affect: Patient reports their mood is "about the same", affect is congruent and constricted. Suicidality/Homicidality: Patient denies having any homicidal ideation intent or plan. Denies any suicidal ideations intent or plan Perceptions: Patient denies any visual hallucinations and denies any auditory hallucinations Though content/process: There is no evidence of any delusional thought content and thought process is linear and goal-directed. concrete. Memory and concentration: AOX3, grossly intact for the purposes of this session Judgment and insight: fair IMPRESSIONS: Depressive disorder NOS, likely bipolar depression vs MDD generalized anxiety disorder with panic attacks Plan: -Patient continues to meet criteria for inpatient psychiatric admission for symptom stabilization and safety. Patient has signed adult voluntary form and medication consent and was placed in patient's chart. -Medications: lithium 300 mg twice a day for mood stabilization/suicidal thoughts, Seroquel 100 mg daily at bedtime. increase Melatonin 10 mg daily at bedtime for sleep. d/c EMsam patch. start prozac tomorrow 20mg dailyfor mood/anxiety. scheduled klonopin 0.25 mg daily for anxiety with plan to titrate down further/off likely tomorrow.] consider adding buspar if needed for anxiety. -Ativan/klonopin and zyprexa PRN for agitation/aggression -NRT - not needed as patient does not smoke. -SW on board for discharge planning. Encouraged the patient to participate in milieu.
[2022-06-25] MEDS: QUEtiapine 100 MG TAB PO SCH (20:22)
[2022-06-25] MEDS: ATORVASTATIN 10 MG TAB PO SCH (20:23)
[2022-06-25] MEDS: MELATONIN 5 MG TABLET PO SCH (20:23)
[2022-06-26] MEDS: LEVOTHYROXINE 75 MCG TAB PO SCH (05:44)
[2022-06-26] MEDS: clonazePAM 0.5 MG TAB PO SCH (08:27)
[2022-06-26] MEDS: APIXABAN 5 MG TAB PO SCH ×2 (08:27→20:42)
[2022-06-26] MEDS: METOPROLOL TARTRATE 50 MG TAB PO SCH ×2 (08:28→20:42)
[2022-06-26] MEDS: LITHIUM CARBONATE 300 MG CAP PO SCH ×2 (08:28→20:42)
[2022-06-26] MEDS ORDERED: FLUoxetine HCL 20 MG CAP PO SCH (09:00)
--- NOTE | 2022-06-26 10:13 | P.PN ---
Progress Note - Text Progress Note Date: 06/26/22 Interval History: Patient was seen sitting in a group today and was directable and agreeable to speak with va underwriter in the office. Patient appears to be somewhat constricted today once again. He claims that he has been trying to drink water regularly to regulate his lithium level. He states that he feels medications have started to work and claims that today was his first day taking the Prozac. He states that he is hopeful for this medication. He claims that last night he had poor sleep and we spoke about other medication options however patient wants to leave his nighttime medications the way they are for tonight. We spoke more about his medication changes and discontinuing Klonopin which she was okay with. He states that he is trying to go to groups and participate as best as he can. He states that his mood is mildly improved since yesterday, continues to have anxiety during the day. has a fair appetite. At this time patient denies any suicidal or homical ideations, intent or plan. Patient denies any auditory, visual hallucinations and denies any paranoia or delusions. Patient denies any side effects from the medications and has been compliant with meds. Mental Status Exam: General Appearance: Patient appears to be tall, balding, wearing glasses, stated age is alert, directable, and attempts to cooperate. Patient appears to have fair hygiene and grooming. Behavior: Patient is seated without any agitated behavior. less anxious today, constricted. Speech: Patient's speech is fluent and nonpressured. hesitant, improving midlly Mood/Affect: Patient reports their mood is "anxious and some depression", affect is congruent and constricted. Suicidality/Homicidality: Patient denies having any homicidal ideation intent or plan. Denies any suicidal ideations intent or plan Perceptions: Patient denies any visual hallucinations and denies any auditory hallucinations Though content/process: There is no evidence of any delusional thought content and thought process is linear and goal-directed. concrete. focused on his medications. Memory and concentration: AOX3, grossly intact for the purposes of this session Judgment and insight: fair IMPRESSIONS: Depressive disorder NOS, likely bipolar depression vs MDD generalized anxiety disorder with panic attacks Plan: -Patient continues to meet criteria for inpatient psychiatric admission for symptom stabilization and safety. Patient has signed adult voluntary form and medication consent and was placed in patient's chart. -Medications: lithium 300 mg twice a day for mood stabilization/suicidal thoughts, will check lithium level thursday morning along with BMP. Seroquel 100 mg daily at bedtime. Melatonin 10 mg daily at bedtime for sleep. increase prozac 30mg daily for mood/anxiety. d/c scheduled klonopin. consider adding buspar if needed for anxiety. -Ativan/klonopin and zyprexa PRN for agitation/aggression -NRT - not needed as patient does not smoke. -SW on board for discharge planning. Encouraged the patient to participate in milieu. likely discharge early next week once patient stabilizes more psychiatrically and obtained blood work and lithium level.
[2022-06-26] MEDS: ACETAMINOPHEN TAB 325 MG TAB PO PRN (11:51)
[2022-06-26] MEDS: ATORVASTATIN 10 MG TAB PO SCH (20:42)
[2022-06-26] MEDS: MELATONIN 5 MG TABLET PO SCH (20:42)
[2022-06-26] MEDS: QUEtiapine 100 MG TAB PO SCH (20:43)
[2022-06-27] MEDS: LEVOTHYROXINE 75 MCG TAB PO SCH (06:11)
[2022-06-27] MEDS: LITHIUM CARBONATE 300 MG CAP PO SCH ×2 (08:29→21:02)
[2022-06-27] MEDS: METOPROLOL TARTRATE 50 MG TAB PO SCH ×2 (08:29→21:02)
[2022-06-27] MEDS: APIXABAN 5 MG TAB PO SCH ×2 (08:29→21:02)
[2022-06-27] MEDS ORDERED: FLUoxetine HCL 10 MG CAP PO SCH (09:00)
--- NOTE | 2022-06-27 11:39 | P.PN ---
Progress Note - Text Progress Note Date: 06/27/22 Interval History: Patient was seen sitting in a group today and was directable and agreeable to speak with verse writer in the office. Patient was also seen socializing with other patients on the unit. He claims that he did not get good sleep last night and states that he patient wandered into his room and was very loud and scared him. He claims that yesterday he had a "better today" however today he continues to endorse some depression and also anxiety. He claims that he feels medications have been working so far. He continues to be hesitant about discharge and his condiiton and appears to be less irritable today. He claims that he is trying to "some groups. has a fair appetite. At this time patient denies any suicidal or homical ideations, intent or plan. Patient denies any auditory, visual hallucinations and denies any paranoia or delusions. Patient denies any side effects from the medications and has been compliant with meds. he did state that he is feeling dizzy again this morning, mainoly after taking his metoprolol and he is worried that it is unsafe for him Mental Status Exam: General Appearance: Patient appears to be tall, balding, wearing glasses, stated age is alert, directable, and attempts to cooperate. Patient appears to have fair hygiene and grooming. Behavior: Patient is seated without any agitated behavior. anxious today, constricted. Speech: Patient's speech is fluent and nonpressured. hesitant, improving midlly Mood/Affect: Patient reports their mood is "anxious and some depression" mild improvement, affect is congruent and constricted. Suicidality/Homicidality: Patient denies having any homicidal ideation intent or plan. Denies any suicidal ideations intent or plan Perceptions: Patient denies any visual hallucinations and denies any auditory hallucinations Though content/process: There is no evidence of any delusional thought content and thought process is linear and goal-directed. concrete. focused on his medications and sx. Memory and concentration: AOX3, grossly intact for the purposes of this session Judgment and insight: fair IMPRESSIONS: Depressive disorder NOS, likely bipolar depression vs MDD generalized anxiety disorder with panic attacks Plan: -Patient continues to meet criteria for inpatient psychiatric admission for symptom stabilization and safety. Patient has signed adult voluntary form and medication consent and was placed in patient's chart. -Medications: lithium 300 mg twice a day for mood stabilization/suicidal thoughts, will check lithium level thursday morning along with BMP. Seroquel 100 mg daily at bedtime. Melatonin 10 mg daily at bedtime for sleep. increase prozac 40mg daily for mood/anxiety. added remeron 15 mg qhs for sleep/mood. decreased metoprolol morning dose to help with dizziness. will be monitoring his vitals/BP -Ativan/klonopin and zyprexa PRN for agitation/aggression -NRT - not needed as patient does not smoke. -SW on board for discharge planning. Encouraged the patient to participate in milieu. likely discharge early next week once patient stabilizes more psychiatrically and obtained blood work and lithium level thursday
[2022-06-27] MEDS: MIRTAZAPINE 15 MG TAB PO SCH (21:02)
[2022-06-27] MEDS: QUEtiapine 100 MG TAB PO SCH (21:02)
[2022-06-27] MEDS: MELATONIN 5 MG TABLET PO SCH (21:02)
[2022-06-27] MEDS: ATORVASTATIN 10 MG TAB PO SCH (21:02)
[2022-06-28] MEDS: LEVOTHYROXINE 75 MCG TAB PO SCH (06:35)
[2022-06-28] MEDS: LITHIUM CARBONATE 300 MG CAP PO SCH ×2 (08:45→20:44)
[2022-06-28] MEDS: APIXABAN 5 MG TAB PO SCH ×2 (08:45→20:44)
[2022-06-28] MEDS ORDERED: FLUoxetine HCL 20 MG CAP PO SCH (09:00)
[2022-06-28] MEDS: METOPROLOL TARTRATE 25 MG TAB PO SCH (10:20)
--- NOTE | 2022-06-28 16:35 | P.PN ---
Progress Note - Text Progress Note Date: 06/28/22 Interval history: Patient was seen attending groups and was directable and agreeable to speak with marine underwriter. He reports "not feeling good" today, complains of increased dizziness and heart palpitations. His Prozac was increased to 40 mg daily starting this morning and he reports his mood is worse today, reports feeling lethargic. He reports improved sleep last night from the addition of Remeron. At this time patient denies any suicidal or homicidal ideation, intent or plan. Denies any auditory or visual hallucinations. Patient has been compliant with his medications, and denies other side effects except as noted above. Mental status exam: General Appearance: Patient appears to be stated age is alert, directable, and cooperative. Behavior: No agitated behavior. Patient is calm and directable Speech: Patient's speech is fluent and non-pressured. Mood/Affect: Mood is "worse today", affect is congruent and constricted. Suicidality/Homicidality: Patient denies having any suicidal or homicidal ideation intent or plan. Perceptions: Patient denies any auditory or visual hallucinations. Though content/process: There is no evidence of any delusional thought content and thought process is linear and goal-directed. Memory and concentration: AOX3, grossly intact for the purposes of this session Judgment and insight: improving mildly Assessment/Plan: Continue with current diagnosis. Patient continues to meet criteria for inpatient psychiatric admission for symptom stabilization and safety. Discontinue Prozac due to reported side effects related to JFS850 2D6 drug interaction between Prozac (strong 2D6 inhibitor) and Metoprolol (2D6 substrate); Prozac is likely intensifying the effects of metoprolol making him feel more dizzy and lightheaded. Start Effexor XR 75 mg daily in the morning starting tomorrow AM for depression/anxiety. Monitor blood pressure. Continue Remeron 15 mg QHS for depression/sleep. Continue Seroquel 100 mg QHS for mood/sleep. Will ask medical doctor to see patient to rule out any other urgent medical issues since patient also has a history of Afib. Monitor for medication compliance and for any psychotropic medication side effects. Will continue to monitor ongoing response to treatment. Encouraged participation in milieu.
[2022-06-28] MEDS: ACETAMINOPHEN TAB 325 MG TAB PO PRN (17:07)
[2022-06-28] MEDS: ATORVASTATIN 10 MG TAB PO SCH (20:44)
[2022-06-28] MEDS: MELATONIN 5 MG TABLET PO SCH (20:44)
[2022-06-28] MEDS: METOPROLOL TARTRATE 50 MG TAB PO SCH (20:44)
[2022-06-28] MEDS: QUEtiapine 100 MG TAB PO SCH (20:44)
[2022-06-28] MEDS: MIRTAZAPINE 15 MG TAB PO SCH (20:44)
[2022-06-29] MEDS: LEVOTHYROXINE 75 MCG TAB PO SCH (06:01)
[2022-06-29 07:01] LABS: African American GFR (CKD) >90 (>60 ml/min/1.73 sqM); Anion Gap 7 mmol/L; Blood Urea Nitrogen 19 mg/dL (9-20); Calcium 8.8 mg/dL (8.4-10.2); Carbon Dioxide 29 mmol/L (22-30); Chloride 103 mmol/L (98-107); Glucose 93 mg/dL (74-99); Non-African American GFR(CKD) 82 (>60 ml/min/1.73 sqM); Sodium 139 mmol/L (137-145)
[2022-06-29 07:09] LABS: Lithium 0.8 mmol/L
[2022-06-29] MEDS: LITHIUM CARBONATE 300 MG CAP PO SCH ×2 (08:45→21:12)
[2022-06-29] MEDS: METOPROLOL TARTRATE 25 MG TAB PO SCH (08:45)
[2022-06-29] MEDS: APIXABAN 5 MG TAB PO SCH ×2 (08:45→21:11)
[2022-06-29] MEDS ORDERED: VENLAFAXINE HCL ER 75 MG CAP PO SCH (09:00)
[2022-06-29] MEDS: QUEtiapine 100 MG TAB PO SCH (21:12)
[2022-06-29] MEDS: MIRTAZAPINE 15 MG TAB PO SCH (21:12)
[2022-06-29] MEDS: MELATONIN 5 MG TABLET PO SCH (21:12)
[2022-06-29] MEDS: ATORVASTATIN 10 MG TAB PO SCH (21:12)
[2022-06-29] MEDS: METOPROLOL TARTRATE 50 MG TAB PO SCH (21:12)
--- NOTE | 2022-06-29 21:59 | P.PN ---
Progress Note - Text Progress Note Date: 06/29/22 Interval history: Patient was directable and agreeable to speak with real estate underwriter. He reports his physical symptoms of dizziness and heart palpitations have resolved today since stopping the Prozac yesterday. He took his first dose of Effexor XR this morning, and so her he reports he doesn't like it since he feels more sad, hopeless. He reports benefit from the [place] and his [place] level today returned at 0.8. He describes his depressive symptoms as atypical depression: sleeping too much, increased appetite, sensitive in social situations and feeling "like the elephant in the room", and feeling tired/weighed down. At this time patient denies any suicidal or homicidal ideation, intent or plan. Denies any auditory or visual hallucinations. Patient has been compliant with his medications, and denies other side effects except as noted above. Mental status exam: General Appearance: Patient appears to be stated age is alert, directable, and cooperative. Behavior: No agitated behavior. Patient is calm and directable Speech: Patient's speech is fluent and non-pressured. Mood/Affect: Mood is "sad, hopeless", affect is congruent and constricted. Suicidality/Homicidality: Patient denies having any suicidal or homicidal ideation intent or plan. Perceptions: Patient denies any auditory or visual hallucinations. Though content/process: There is no evidence of any delusional thought content and thought process is linear and goal-directed. Memory and concentration: AOX3, grossly intact for the purposes of this session Judgment and insight: Improving mildly Assessment/Plan: Continue with current diagnosis. Patient continues to meet criteria for inpatient psychiatric admission for symptom stabilization and safety. Prozac was discontinued yesterday due to FCK814 2D6 drug interaction between Prozac (strong 2D6 inhibitor) and Metoprolol (2D6 substrate); Prozac was likely intensifying the effects of metoprolol making him feel more dizzy and lightheaded, which has resolved today. Discontinue Effexor XR. He took one dose only this morning but states he does not like it. Increase Remeron to 30 mg QHS for depression/sleep. Continue Seroquel 100 mg QHS for mood/sleep. Monitor for medication compliance and for any psychotropic medication side effects. Will continue to monitor ongoing response to treatment. Encouraged participation in milieu.
[2022-06-30] MEDS: LEVOTHYROXINE 75 MCG TAB PO SCH (06:38)
[2022-06-30] MEDS: APIXABAN 5 MG TAB PO SCH ×2 (08:56→20:47)
[2022-06-30] MEDS: METOPROLOL TARTRATE 25 MG TAB PO SCH (08:56)
[2022-06-30] MEDS: LITHIUM CARBONATE 300 MG CAP PO SCH ×2 (08:56→20:47)
[2022-06-30] MEDS: ACETAMINOPHEN TAB 325 MG TAB PO PRN (08:57)
--- NOTE | 2022-06-30 11:39 | P.PN ---
Progress Note - Text Progress Note Date: 06/30/22 Interval History: Patient was seen today wandering the hallways after taking his medications and was directable and agreeable to speak with short story writer in the office. Patient states that he is trying to go to some groups and was also noted to be participating in director of social work this morning. He states that he is doing "very depressed" this morning. He states that he feels like he has very low energy and is feeling fairly anxious as well. He states that he does not feel well today and does not feel like he can go home. He claims that over the weekend his medications changed and he is off the Prozac. He claims that he was having severe dizziness with it as he was interacting with metoprolol. He claims that he was able to sleep fairly last night, has an improving appetite. At this time patient denies any current suicidal or homical ideations, intent or plan. Patient denies any auditory, visual hallucinations and denies any paranoia or delusions. Patient denies any side effects from the medications and has been compliant with meds. Mental Status Exam: General Appearance: Patient appears to be tall, balding, wearing glasses, stated age is alert, directable, and attempts to cooperate. Patient appears to have fair hygiene and grooming. Behavior: Patient is seated without any agitated behavior. constricted. Speech: Patient's speech is fluent and nonpressured. hesitant Mood/Affect: Patient reports their mood is "very depressed and anxious", affect is congruent and constricted. Suicidality/Homicidality: Patient denies having any homicidal ideation intent or plan. Denies any suicidal ideations intent or plan Perceptions: Patient denies any visual hallucinations and denies any auditory hallucinations Though content/process: There is no evidence of any delusional thought content and thought process is linear and goal-directed. concrete. focused on his medications and sx. Memory and concentration: AOX3, grossly intact for the purposes of this session Judgment and insight: fair IMPRESSIONS: Depressive disorder NOS, likely bipolar depression vs MDD generalized anxiety disorder with panic attacks Plan: -Patient continues to meet criteria for inpatient psychiatric admission for symptom stabilization and safety. Patient has signed adult voluntary form and medication consent and was placed in patient's chart. -Medications: lithium 300 mg twice a day for mood stabilization/suicidal thoughts. Seroquel 100 mg daily at bedtime. Melatonin 10 mg daily at bedtime for sleep. added cymbalta 30 mg daily for mood/anxiety. remeron 30 mg qhs for sleep/mood. -Ativan/klonopin and zyprexa PRN for agitation/aggression -NRT - not needed as patient does not smoke. -SW on board for discharge planning. Encouraged the patient to participate in milieu. likely discharge once patient stabilizes more psychiatrically as patient is high risk for suicide or complications with medications and likely re-admitt.
[2022-06-30] MEDS: DULoxetine HCL 30 MG CAPSULE.DR PO SCH (12:12)
[2022-06-30] MEDS: QUEtiapine 100 MG TAB PO SCH (20:46)
[2022-06-30] MEDS: METOPROLOL TARTRATE 50 MG TAB PO SCH (20:46)
[2022-06-30] MEDS: ATORVASTATIN 10 MG TAB PO SCH (20:47)
[2022-06-30] MEDS: MELATONIN 5 MG TABLET PO SCH (20:47)
[2022-06-30] MEDS: MIRTAZAPINE 15 MG TAB PO SCH (20:47)
[2022-07-01] MEDS: LEVOTHYROXINE 75 MCG TAB PO SCH (06:26)
[2022-07-01] MEDS: DULoxetine HCL 30 MG CAPSULE.DR PO SCH ×2 (08:14→21:05)
[2022-07-01] MEDS: LITHIUM CARBONATE 300 MG CAP PO SCH ×2 (08:14→21:05)
[2022-07-01] MEDS: APIXABAN 5 MG TAB PO SCH ×2 (08:14→21:04)
[2022-07-01] MEDS: METOPROLOL TARTRATE 25 MG TAB PO SCH (08:14)
--- NOTE | 2022-07-01 12:39 | P.PN ---
Progress Note - Text Progress Note Date: 07/01/22 Interval History: Patient was seen today wandering the hallways and was directable and agreeable to speak with sports book writer in the office. Patient states that he is feeling fairly anxious today. He claims that his mood however is improving mildly since yesterday. He claims that he is feeling frustrated because he cannot seem to have consistent progress. He claims that he isn't having no issues with the Cymbalta thus far and is okay with having an increased. He states that he did not sleep well last night and was agreeable to have his Seroquel increased. He states that he is eating fairly, trying to go to some groups and socialize on the unit. claims that he has an improving appetite. At this time patient denies any current suicidal or homical ideations, intent or plan. Patient denies any auditory, visual hallucinations and denies any paranoia or delusions. Patient denies any side effects from the medications and has been compliant with meds. Mental Status Exam: General Appearance: Patient appears to be tall, balding, wearing glasses, stated age is alert, directable, and attempts to cooperate. Patient appears to have fair hygiene and grooming. Behavior: Patient is seated without any agitated behavior. constricted. Speech: Patient's speech is fluent and nonpressured. Mood/Affect: Patient reports their mood is "very anxious today but less depressed", affect is congruent and constricted. Suicidality/Homicidality: Patient denies having any homicidal ideation intent or plan. Denies any suicidal ideations intent or plan Perceptions: Patient denies any visual hallucinations and denies any auditory hallucinations Though content/process: There is no evidence of any delusional thought content and thought process is linear and goal-directed. concrete. focused on his medications and sx. Memory and concentration: AOX3, grossly intact for the purposes of this session Judgment and insight: fair IMPRESSIONS: Depressive disorder NOS, likely bipolar depression vs MDD generalized anxiety disorder with panic attacks Plan: -Patient continues to meet criteria for inpatient psychiatric admission for symptom stabilization and safety. Patient has signed adult voluntary form and medication consent and was placed in patient's chart. -Medications: lithium 300 mg twice a day for mood stabilization/suicidal thoughts. increase Seroquel 125 mg daily at bedtime. Melatonin 10 mg daily at bedtime for sleep. increase cymbalta 30 mg BID for mood/anxiety. remeron 30 mg qhs for sleep/mood. -Ativan/klonopin and zyprexa PRN for agitation/aggression -NRT - not needed as patient does not smoke. -SW on board for discharge planning. Encouraged the patient to participate in milieu. likely discharge once patient stabilizes more psychiatrically as patient is high risk for suicide or complications with medications and likely re-admitt. likely discharge in 2-3 days if patient improves.
[2022-07-01] MEDS: busPIRone HCl 10 MG TAB PO SCH ×3 (13:24→21:07)
[2022-07-01] MEDS ORDERED: QUEtiapine 50 MG TAB PO SCH (21:00)
[2022-07-01] MEDS: MELATONIN 5 MG TABLET PO SCH (21:05)
[2022-07-01] MEDS: METOPROLOL TARTRATE 50 MG TAB PO SCH (21:05)
[2022-07-01] MEDS: MIRTAZAPINE 15 MG TAB PO SCH (21:05)
[2022-07-01] MEDS: ATORVASTATIN 10 MG TAB PO SCH (21:06)
[2022-07-02] MEDS: LEVOTHYROXINE 75 MCG TAB PO SCH (06:08)
[2022-07-02] MEDS: busPIRone HCl 10 MG TAB PO SCH (08:13)
[2022-07-02] MEDS: LITHIUM CARBONATE 300 MG CAP PO SCH ×2 (08:13→21:03)
[2022-07-02] MEDS: DULoxetine HCL 30 MG CAPSULE.DR PO SCH (08:13)
[2022-07-02] MEDS: APIXABAN 5 MG TAB PO SCH ×2 (08:13→21:02)
[2022-07-02] MEDS: METOPROLOL TARTRATE 25 MG TAB PO SCH (08:13)
[2022-07-02] MEDS ORDERED: DULoxetine HCL 30 MG CAPSULE.DR PO ONE (10:00)
--- NOTE | 2022-07-02 10:30 | P.PN ---
Progress Note - Text Progress Note Date: 07/02/22 Interval History: Patient was seen today sitting in on group and was directable and agreeable to speak with story writer in the office. Patient continues to be fairly constricted today in his affect. He did again state that he is feeling frustrated because he is still feeling depressed and also endorsing anxiety as well. He claims that he did notice some very mild improvement since yesterday with the BuSpar and was agreeable to have it increased. We spoke about the severity of his depression and treatment resistance and patient appears to be more understanding. He continues to endorse some hopelessness and worthlessness. He claims that he also did not sleep well last night was agreeable to have his Seroquel increased. Claims to have a fair appetite. He is trying to go to groups as much as he can. At this time patient denies any current suicidal or homical ideations, intent or plan. Patient denies any auditory, visual hallucinations and denies any paranoia or delusions. Patient denies any side effects from the medications and has been compliant with meds. Mental Status Exam: General Appearance: Patient appears to be tall, balding, wearing glasses, stated age is alert, directable, and attempts to cooperate. Patient appears to have fair hygiene and grooming. Behavior: Patient is seated without any agitated behavior. constricted. upset today Speech: Patient's speech is fluent and nonpressured. monotone Mood/Affect: Patient reports their mood is "still depressed and anxious", affect is congruent and constricted. Suicidality/Homicidality: Patient denies having any homicidal ideation intent or plan. Denies any suicidal ideations intent or plan Perceptions: Patient denies any visual hallucinations and denies any auditory hallucinations Though content/process: There is no evidence of any delusional thought content and thought process is linear and goal-directed. concrete. focused on his medications and sx. feeling hopeless. Memory and concentration: AOX3, grossly intact for the purposes of this session Judgment and insight: fair IMPRESSIONS: Depressive disorder NOS, likely bipolar depression vs MDD generalized anxiety disorder with panic attacks Plan: -Patient continues to meet criteria for inpatient psychiatric admission for symptom stabilization and safety. Patient has signed adult voluntary form and medication consent and was placed in patient's chart. -Medications: lithium 300 mg twice a day for mood stabilization/suicidal thoughts. increase Seroquel 150 mg daily at bedtime. Melatonin 10 mg daily at bedtime for sleep. increase cymbalta 60 mg dialy + 30 mg qhs for mood/anxiety. remeron 30 mg qhs for sleep/mood. increase buspar 15 mg tid for anxiety. -Ativan/klonopin and zyprexa PRN for agitation/aggression -NRT - not needed as patient does not smoke. -SW on board for discharge planning. Encouraged the patient to participate in milieu. likely discharge once patient stabilizes more psychiatrically as patient is high risk for suicide or complications with medications and likely re-admitt. likely discharge in 2-3 days if patient improves.
[2022-07-02] MEDS: SENNOSIDES-DOCUSATE SODIUM 1 EACH TAB PO SCH (11:42)
[2022-07-02] MEDS: busPIRone HCl 5 MG TAB PO SCH ×2 (17:26→21:03)
[2022-07-02] MEDS ORDERED: DULoxetine HCL 30 MG CAPSULE.DR PO SCH (21:00)
[2022-07-02] MEDS: METOPROLOL TARTRATE 50 MG TAB PO SCH (21:03)
[2022-07-02] MEDS: MIRTAZAPINE 15 MG TAB PO SCH (21:03)
[2022-07-02] MEDS: QUEtiapine 50 MG TAB PO SCH (21:03)
[2022-07-02] MEDS: ATORVASTATIN 10 MG TAB PO SCH (21:03)
[2022-07-02] MEDS: MELATONIN 5 MG TABLET PO SCH (21:04)
[2022-07-03] MEDS: LEVOTHYROXINE 75 MCG TAB PO SCH (06:41)
[2022-07-03] MEDS: SENNOSIDES-DOCUSATE SODIUM 1 EACH TAB PO SCH (07:54)
[2022-07-03] MEDS: LITHIUM CARBONATE 300 MG CAP PO SCH ×2 (07:54→20:58)
[2022-07-03] MEDS: APIXABAN 5 MG TAB PO SCH ×2 (07:55→20:59)
[2022-07-03] MEDS: DULoxetine HCL 60 MG CAPSULE.DR PO SCH (07:55)
[2022-07-03] MEDS: busPIRone HCl 5 MG TAB PO SCH (07:55)
[2022-07-03] MEDS: METOPROLOL TARTRATE 25 MG TAB PO SCH (07:55)
--- NOTE | 2022-07-03 10:25 | P.PN ---
Progress Note - Text Progress Note Date: 07/03/22 Interval History: Patient was seen today sitting in on group and was directable and agreeable to speak with customs entry writer in the office. Patient continues to be fairly constricted in his affect. He states that he is continuing to struggle with anxiety during the day however did state that is a bit better compared to yesterday. He claims that his mood is "a bit better" compared to yesterday. He continues to endorse hesitancy about his medications and what the plan is. He claims that he does feel frustrated still being on the inpatient unit. He has been trying to go to as many groups as he can. He states that his appetite is still "pretty good". Claims that he was able to sleep last night which she is happy about with the increase in Seroquel. We spoke about other options to transition patient into the outpatient setting including partial hospitalization which patient was open to hearing about. At this time patient denies any current suicidal or homical ideations, intent or plan. Patient denies any auditory, visual hallucinations and denies any paranoia or delusions. Patient denies any side effects from the medications and has been compliant with meds. Mental Status Exam: General Appearance: Patient appears to be tall, balding, wearing glasses, stated age is alert, directable, and attempts to cooperate. Patient appears to have fair hygiene and grooming. Behavior: Patient is seated without any agitated behavior. constricted, improving mildly Speech: Patient's speech is fluent and nonpressured. monotone Mood/Affect: Patient reports their mood is "still anxious but better overall", affect is congruent and constricted, improving mildly. Suicidality/Homicidality: Patient denies having any homicidal ideation intent or plan. Denies any suicidal ideations intent or plan Perceptions: Patient denies any visual hallucinations and denies any auditory hallucinations Though content/process: There is no evidence of any delusional thought content and thought process is linear and goal-directed. concrete. Memory and concentration: AOX3, grossly intact for the purposes of this session Judgment and insight: fair IMPRESSIONS: Depressive disorder NOS, likely bipolar depression vs MDD generalized anxiety disorder with panic attacks Plan: -Patient continues to meet criteria for inpatient psychiatric admission for symptom stabilization and safety. Patient has signed adult voluntary form and medication consent and was placed in patient's chart. -Medications: lithium 300 mg twice a day for mood stabilization/suicidal thoughts. Seroquel 150 mg daily at bedtime. Melatonin 10 mg daily at bedtime for sleep. increase cymbalta 60 mg bid for mood/anxiety. remeron 30 mg qhs for sleep/mood. increase buspar 20 mg tid for anxiety. -Ativan/klonopin and zyprexa PRN for agitation/aggression -NRT - not needed as patient does not smoke. -AMEE on board for discharge planning. Encouraged the patient to participate in milieu. likely discharge tomorrow if patient continues to improve, patient is likely going to continue to struggle with depression/anxiety and will need closer follow up and continue on with [facility] and therapy. Patient is agreeable to do partial hospitalization program if he is able to get in, SW to look into this today. If patient continues to improve then likely discharge tomorrow.
[2022-07-03] MEDS: busPIRone HCl 10 MG TAB PO SCH ×2 (15:41→20:58)
[2022-07-03] MEDS: METOPROLOL TARTRATE 50 MG TAB PO SCH (20:58)
[2022-07-03] MEDS: QUEtiapine 50 MG TAB PO SCH (20:58)
[2022-07-03] MEDS: MELATONIN 5 MG TABLET PO SCH (20:58)
[2022-07-03] MEDS: MIRTAZAPINE 15 MG TAB PO SCH (20:58)
[2022-07-03] MEDS: ATORVASTATIN 10 MG TAB PO SCH (20:59)
[2022-07-03] MEDS ORDERED: DULoxetine HCL 60 MG CAPSULE.DR PO SCH (21:00)
[2022-07-04] MEDS: LEVOTHYROXINE 75 MCG TAB PO SCH (06:29)
[2022-07-04] MEDS: busPIRone HCl 10 MG TAB PO SCH ×3 (08:15→20:56)
[2022-07-04] MEDS: LITHIUM CARBONATE 300 MG CAP PO SCH ×2 (08:15→20:56)
[2022-07-04] MEDS: APIXABAN 5 MG TAB PO SCH ×2 (08:15→20:56)
[2022-07-04] MEDS: DULoxetine HCL 60 MG CAPSULE.DR PO SCH (08:16)
[2022-07-04] MEDS: METOPROLOL TARTRATE 25 MG TAB PO SCH (08:16)
[2022-07-04] MEDS: SENNOSIDES-DOCUSATE SODIUM 1 EACH TAB PO SCH (08:17)
--- NOTE | 2022-07-04 11:14 | P.PN ---
Progress Note - Text Progress Note Date: 07/04/22 Interval History: Patient was seen today sitting in group and was directable and agreeable to efrain jacobsen with physician underwriter in the office. Patient continues to be fairly constricted in his affect. He states that he is experiencing increased anxiety and depression that are worse than yesterday. He endorses low energy levels and feeling lethargic to the point where he does not feel safe to be potentially leaving the hospital. Patient endorses neurovegetative symptoms of depression. He states he has been attending groups. He states that his appetite is fair. He reports trouble falling asleep last night and having racing thoughts. Discussed partial hospitalization further today and patient was interested in this. He states that he discussed it with his as well who he reports being supportive of this. He denies overt suicidal ideation but feels frustrated with his health and wellbeing. He endorses anhedonia and is not future oriented. At this time patient denies any homicidal ideation, intent or plan. Patient denies any auditory, visual hallucinations and denies any paranoia or delusions. Patient denies any side effects from the medications and has been compliant with meds. Mental Status Exam: General Appearance: Patient appears to be tall, balding, wearing glasses, stated age is alert, directable, and attempts to cooperate. Patient appears to have fair hygiene and grooming. Behavior: Patient is seated without any agitated behavior. constricted, improving mildly Speech: Patient's speech is fluent and nonpressured. monotone Mood/Affect: Patient reports their mood is "not good", affect is congruent and constricted Suicidality/Homicidality: Patient denies having any homicidal ideation intent or plan. Denies any overt suicidal ideations intent or plan Perceptions: Patient denies any visual hallucinations and denies any auditory hallucinations Though content/process: There is no evidence of any delusional thought content and thought process is linear and goal-directed. concrete. Memory and concentration: AOX3, grossly intact for the purposes of this session Judgment and insight: fair IMPRESSIONS: Major depressive disorder, recurrent, severe, without psychotic features generalized anxiety disorder with panic attacks Likely dysthymia Plan: -Patient continues to meet criteria for inpatient psychiatric admission for symptom stabilization and safety. Patient has signed adult voluntary form and medication consent and was placed in patient's chart. -Medications: Continue lithium 300 mg twice a day for mood stabilization/suicidal thoughts. Continue Seroquel 150 mg daily at bedtime. Continue Melatonin 10 mg daily at bedtime for sleep. Decrease cymbalta to 60 mg qAM and 30 mg qHS for mood/anxiety. He is likely experiencing activating side effects of Cymbalta at this dose particularly at night Continue remeron 30 mg qhs for sleep/mood. Continue buspar 20 mg tid for anxiety. -Ativan/klonopin and zyprexa PRN for agitation/aggression -NRT - not needed as patient does not smoke. -SW on board for discharge planning. Encouraged the patient to participate in milieu. Given patient's severity of treatment-resistant mental illness with multiple hospitalizations, acuity of current symptoms including lack of future orientation, patient is at high risk for imminent decompensation resulting in rehospitalization without adequate medication management and proper follow-up (which is not yet set up). Patient is currently also experiencing side effects that will need to be monitored and adjusted for safety. Patient agreeable with partial hospitalization and SW will plan for this with [facility] potentially for Thursday. If patient improves over the weekend then likely discharge Thursday.
[2022-07-04 13:44] VITALS: BMI 32.0
[2022-07-04] MEDS: DULoxetine HCL 30 MG CAPSULE.DR PO SCH (20:56)
[2022-07-04] MEDS: ATORVASTATIN 10 MG TAB PO SCH (20:57)
[2022-07-04] MEDS: METOPROLOL TARTRATE 50 MG TAB PO SCH (20:57)
[2022-07-04] MEDS: MELATONIN 5 MG TABLET PO SCH (20:57)
[2022-07-04] MEDS: MIRTAZAPINE 15 MG TAB PO SCH (20:57)
[2022-07-04] MEDS: QUEtiapine 50 MG TAB PO SCH (20:57)
[2022-07-04 21:00] VITALS: RESP 16
[2022-07-05] MEDS: LEVOTHYROXINE 75 MCG TAB PO SCH (06:33)
[2022-07-05] MEDS: APIXABAN 5 MG TAB PO SCH ×2 (08:15→20:53)
[2022-07-05] MEDS: DULoxetine HCL 60 MG CAPSULE.DR PO SCH (08:16)
[2022-07-05] MEDS: busPIRone HCl 10 MG TAB PO SCH ×3 (08:16→20:53)
[2022-07-05] MEDS: METOPROLOL TARTRATE 25 MG TAB PO SCH (08:16)
[2022-07-05] MEDS: LITHIUM CARBONATE 300 MG CAP PO SCH ×2 (08:16→20:53)
[2022-07-05] MEDS: SENNOSIDES-DOCUSATE SODIUM 1 EACH TAB PO SCH (08:17)
--- NOTE | 2022-07-05 15:22 | P.PN ---
Progress Note - Text Progress Note Date: 07/05/22 Interval History: Patient was seen today sitting in group and was directable and agreeable to sp ann-marie with underwriter solicitation director in the office. Patient continues to be fairly constricted in his affect. He states that he is continuing to experience anxiety and depression. He rates depression 7/10. He says that he has been feeling anxious on the inside but denies racing thoughts. He endorses low energy levels and rates this to be 4/10. Patient endorses neurovegetative symptoms of depression. He states he has been attending groups. He states that his appetite is fair. He reports better sleep last night. This provider did meditation with the patient to challenge negative thoughts. During the meditation, patient had the negative thoughts "I will never be able to overcome my depression and anxiety ". Discussed CBT and challenging negative thoughts. Patient states that he has never participated in therapy. He denies overt suicidal ideation but feels frustrated with his health and wellbeing. He endorses anhedonia and is not future oriented. At this time patient denies any homicidal ideation, intent or plan. Patient denies any auditory, visual hallucinations and denies any paranoia or delusions. Patient denies any side effects from the medications and has been compliant with meds. Mental Status Exam: General Appearance: Patient appears to be tall, balding, wearing glasses, stated age is alert, directable, and attempts to cooperate. Patient appears to have fair hygiene and grooming. Behavior: Patient is seated without any agitated behavior. constricted, improving mildly Speech: Patient's speech is fluent and nonpressured. monotone Mood/Affect: Patient reports their mood is "not good", affect is congruent and constricted Suicidality/Homicidality: Patient denies having any homicidal ideation intent or plan. Denies any overt suicidal ideations intent or plan Perceptions: Patient denies any visual hallucinations and denies any auditory hallucinations Though content/process: There is no evidence of any delusional thought content and thought process is linear and goal-directed. concrete. Memory and concentration: AOX3, grossly intact for the purposes of this session Judgment and insight: fair IMPRESSIONS: Major depressive disorder, recurrent, severe, without psychotic features generalized anxiety disorder with panic attacks Likely dysthymia Plan: -Patient continues to meet criteria for inpatient psychiatric admission for symptom stabilization and safety. Patient has signed adult voluntary form and medication consent and was placed in patient's chart. -Medications: Continue lithium 300 mg twice a day for mood stabilization/suicidal thoughts. Continue Seroquel 150 mg daily at bedtime. Continue Melatonin 10 mg daily at bedtime for sleep. Continue cymbalta 60 mg qAM and 30 mg qHS for mood/anxiety. Continue remeron 30 mg qhs for sleep/mood. Continue buspar 20 mg tid for anxiety. - CBT exercise discussed and encouraged to complete when faced with negative thought -Ativan/klonopin and zyprexa PRN for agitation/aggression -NRT - not needed as patient does not smoke. -SW on board for discharge planning. Encouraged the patient to participate in milieu. Given patient's severity of treatment-resistant mental illness with multiple hospitalizations, acuity of current symptoms including lack of future orientation, patient is at high risk for imminent decompensation resulting in rehospitalization without adequate medication management and proper follow-up (which is not yet set up). Patient is currently also experiencing side effects that will need to be monitored and adjusted for safety. Patient agreeable with partial hospitalization and SW will plan for this with [facility] potentially for Thursday. If patient improves over the weekend then likely discharge Thursday.
[2022-07-05] MEDS: DULoxetine HCL 30 MG CAPSULE.DR PO SCH (20:53)
[2022-07-05] MEDS: QUEtiapine 50 MG TAB PO SCH (20:53)
[2022-07-05] MEDS: ATORVASTATIN 10 MG TAB PO SCH (20:53)
[2022-07-05] MEDS: MIRTAZAPINE 15 MG TAB PO SCH (20:54)
[2022-07-05] MEDS: MELATONIN 5 MG TABLET PO SCH (20:54)
[2022-07-05] MEDS: METOPROLOL TARTRATE 50 MG TAB PO SCH (20:54)
[2022-07-06] MEDS: LEVOTHYROXINE 75 MCG TAB PO SCH (07:01)
[2022-07-06] MEDS: LITHIUM CARBONATE 300 MG CAP PO SCH (08:33)
[2022-07-06] MEDS: APIXABAN 5 MG TAB PO SCH ×2 (08:33→20:48)
[2022-07-06] MEDS: busPIRone HCl 10 MG TAB PO SCH ×3 (08:33→20:47)
[2022-07-06] MEDS: METOPROLOL TARTRATE 25 MG TAB PO SCH (08:33)
[2022-07-06] MEDS: DULoxetine HCL 60 MG CAPSULE.DR PO SCH (08:33)
[2022-07-06] MEDS: SENNOSIDES-DOCUSATE SODIUM 1 EACH TAB PO SCH (08:35)
--- NOTE | 2022-07-06 14:15 | P.PN ---
Progress Note - Text Progress Note Date: 07/06/22 Interval History: Patient bedside this morning. Patient continues to be fairly constricted in his affect. He reports that his anxiety and depression have improving. He states that he is feeling much better today than in the previous days. He reported having worked further on the CBT exercises that was discussed yesterday. He says he spoke with his who expressed concerns about having him home in case he might need to be hospitalized again. Patient appears to be growing even more open to the idea of partial hospitalization program at [facility]. Patient endorses mild improvement in neurovegetative symptoms of depression. He states he has been attending groups. He states that his appetite is fair. He reports better sleep last night. He says that he's been feeling a little bit more tired this morning and is agreeable with taking the lithium all at nighttime in an effort to help with this. He denies suicidal ideation and is less ruminative on his health and wellbeing. He endorses anhedonia but is more future oriented. At this time patient denies any homicidal ideation, intent or plan. Patient denies any auditory, visual hallucinations and denies any paranoia or delusions. Patient denies any side effects from the medications and has been compliant with meds. Mental Status Exam: General Appearance: Patient appears to be tall, balding, wearing glasses, stated age is alert, directable, and attempts to cooperate. Patient appears to have fair hygiene and grooming. Behavior: Patient is seated without any agitated behavior. constricted, improving mildly Speech: Patient's speech is fluent and nonpressured. monotone Mood/Affect: Patient reports their mood is "better", affect is congruent and constricted Suicidality/Homicidality: Patient denies having any homicidal ideation intent or plan. Denies any overt suicidal ideations intent or plan Perceptions: Patient denies any visual hallucinations and denies any auditory hallucinations Though content/process: There is no evidence of any delusional thought content and thought process is linear and goal-directed. concrete. Memory and concentration: AOX3, grossly intact for the purposes of this session Judgment and insight: fair IMPRESSIONS: Major depressive disorder, recurrent, severe, without psychotic features Generalized anxiety disorder with panic attacks Likely dysthymia Plan: -Patient continues to meet criteria for inpatient psychiatric admission for symptom stabilization and safety. Patient has signed adult voluntary form and medication consent and was placed in patient's chart. -Medications: Change lithium to 600 mg at bedtime for mood stabilization/suicidal thoughts. Continue Seroquel 150 mg daily at bedtime. Continue Melatonin 10 mg daily at bedtime for sleep. Continue cymbalta 60 mg qAM and 30 mg qHS for mood/anxiety. Continue remeron 30 mg qhs for sleep/mood. Continue buspar 20 mg tid for anxiety. -CBT exercise discussed and encouraged to complete when faced with negative thoughts -EKG reveals atrial fibrillation with normal HR and bifascicular block - requesting hospitalist team for input -Ativan/klonopin and zyprexa PRN for agitation/aggression -NRT - not needed as patient does not smoke. -SW on board for discharge planning. Encouraged the patient to participate in milieu. Given patient's severity of treatment-resistant mental illness with multiple hospitalizations, patient is at high risk for imminent decompensation resulting in rehospitalization without adequate medication management and proper follow-up (which is not yet set up). Patient is currently also experiencing side effects that will need to be monitored and adjusted for safety. Patient agreeable with partial hospitalization and SW will plan for this with [facility] for Thursday. If patient improves over the weekend then likely discharge Thursday.
[2022-07-06] MEDS: QUEtiapine 50 MG TAB PO SCH (20:46)
[2022-07-06] MEDS: MIRTAZAPINE 15 MG TAB PO SCH (20:47)
[2022-07-06] MEDS: MELATONIN 5 MG TABLET PO SCH (20:47)
[2022-07-06] MEDS: METOPROLOL TARTRATE 50 MG TAB PO SCH (20:47)
[2022-07-06] MEDS: ATORVASTATIN 10 MG TAB PO SCH (20:47)
[2022-07-06] MEDS: DULoxetine HCL 30 MG CAPSULE.DR PO SCH (20:47)
[2022-07-06] MEDS ORDERED: LITHIUM CARBONATE 300 MG CAP PO SCH (21:00)
[2022-07-07] MEDS: LEVOTHYROXINE 75 MCG TAB PO SCH (06:24)
[2022-07-07 06:26] VITALS: BP 132/91; PULSE 101; TEMP 97.8
[2022-07-07] MEDS: busPIRone HCl 10 MG TAB PO SCH (07:58)
[2022-07-07] MEDS: SENNOSIDES-DOCUSATE SODIUM 1 EACH TAB PO SCH (07:59)
[2022-07-07] MEDS: APIXABAN 5 MG TAB PO SCH (08:00)
[2022-07-07] MEDS: METOPROLOL TARTRATE 25 MG TAB PO SCH (08:03)
[2022-07-07] MEDS: DULoxetine HCL 60 MG CAPSULE.DR PO SCH (08:03)
--- NOTE | 2022-07-07 11:55 | P.DS ---
Providers Date of admission: 06/23/22 13:02 Expected date of discharge: 07/07/22 Attending physician: Charlie Chamorro MD Consults: 06/23/22 14:32 Consult Physician Routine Consulting Provider: [facility] Physician Consult Reason/Comments: H&P and medical Do you want consulting provider notified?: Yes Primary care physician: Ted Graves - Discharge Diagnosis(es) (1) Major depressive disorder, recurrent severe without psychotic features Current Visit: Yes Status: Acute Priority: High (2) Generalized anxiety disorder with panic attacks Current Visit: Yes Status: Acute Priority: High Hospital Course: Admission HPI: Admission note was completed by senior underwriter "Patient is a 72-year-old male is currently lives with his in a house, he is unemployed, he has 4 kids. Patient presented to the hospital yesterday complaining the ER of depression and anxiety for the past 3 years. Patient currently has been in and out of treatment and currently has a psychiatrist that he'll use Dr. Bain. Patient was complaining of suicidal thoughts in the ER as well. He was positive for TCAs and his urine drug screen. Patient's lithium level was 0.5. Patient was seen today and agreeable to speech and hearing clinic director in the office. He states that he has had a "three-year problem" and states that it has been getting worse. He claims that he has been feeling "miserable since the summer". He states that for the past 7 days he is having "horrible anxiety" and also has been endorsing increasing depression. He states that the depression is mainly been from the anxiety and feeling sad. He claims that he has been taking his medications every day and has undergone a lot of medication changes in the past. He listed off different psychiatric medications and other treatment. He is undergone. He states that he does not know whether he has bipolar or depression. He states that currently he is on the Emsam patch which has helped him in the past but not any longer. he gave noclear history of specific manic episodes but sttaes that overall he is unsure. Claims that his sleep has been fair with the Seroquel, but it is been on and off. Patient denies any current suicidal or homicidal ideations intent or plan. At this time patient denies any auditory or visual hallucinations. Patient denies any current flight of ideas racing thoughts and increased in goal directed behavior. Patient admits to using no recreational drugs or cigarettes." Hospital course: Upon admission to the unit patient was directable and agreeable to commence treatment and signed adult voluntary form. Patient was initially isolative however with treatment and times he got along well with other patients on the unit and followed unit protocol. Patient was compliant with the medications and did report some mild a/e of medications including dizziness and upset stomach. Patient was started on lithium and increased her dose of 600 mg daily at bedtime for mood stabilization/suicidal thoughts, Seroquel 150 mg daily at bedtime for mood adjunct/insomnia, Cymbalta increased to a dose of 60 mg twice a day for mood/anxiety, Remeron 30 mg daily at bedtime for sleep/mood. BuSpar was reduced and changed to prn at patients request. klonopin was changed to 0.5 mg prn for anxiety. melatonin added for sleep. Patient spoke of his stressors and engaged in therapy both group and individual. Patient was also seen by medical team for history and physical exam. Throughout the course of the hospitalization patient gradually improved with regards to mood, anxiety, suicidal thoughts, sleep and returned back to their baseline level of functioning. Patient continues to have persistent/treatment resistant depression and anxiety and will continue to require close outpatient follow up and will be referred to partial hospitalization program by [facility]. On the day of discharge patient denied any suicidal or homicidal ideations intent or plan denied any auditory or visual hallucinations. Patient endorsed wanting to live for his family and grandchildren. The patient denied any access to guns or weapons. Patient denied any paranoia and did not endorse any delusions. Patient does not have a significant history of substance abuse and was counseled on abstaining from all substances including alcohol and marijuana. Patient was also counseled on the medications and need for regular compliance and was encouraged to follow-up with their outpatient appointment for mental health and also for primary care. Prior to discharge a family meeting will be arranged by clinical social work therapist to answer any q uestions and ensure safety upon discharge. Mental status exam: General Appearance: Patient appears to be tall, wearing glasses, stated age is alert, directable, and cooperative. Patient is in no acute distress and has improved hygiene and grooming Behavior: Patient is calmly seated without any agitated behavior. Speech: Patient's speech is fluent and nonpressured. Mood/Affect: Patient reports their mood is "alright", affect is congruent Suicidality/Homicidality: Patient denies having any suicidal or homicidal ideation intent or plan. Perceptions: Patient denies any auditory or visual hallucinations. Though content/process: There is no evidence of any delusional thought content and thought process is linear and goal-directed. more future oriented. fairly concrete. Memory and concentration: AOX3, grossly intact for the purposes of this session. Can spell "WORLD" backwards correctly. Judgment and insight: improved with guarded prognosis Impression: Major depressive disorder, severe, recurrent without psychotic features Generalized anxiety with panic attacks Plan: -Continue with discharge today as patient has improved and stabilized psychiatrically and is not currently an imminent threat to himself and/or others. Patient will remain at chronically elevated risk for harm to self and/or others due to his severe and persistent/treatment resistant depression/anxiety. -Continue medications: [place] 600 mg daily at bedtime for mood stabilization/suicidal thoughts, Seroquel 150 mg daily at bedtime for mood stabilization/insomnia, Cymbalta 60 mg twice a day for mood/anxiety, Remeron 30 mg daily at bedtime for sleep/mood, melatonin 10 mg daily at bedtime for sleep, Klonopin when necessary for anxiety, BuSpar twice a day when necessary for anxiety. -Patient was counseled on the need for medication compliance and appropriate follow-up at mental health and also primary care for medical issues. Patient verbalized understanding and agreed. -Social work to arrange for and conduct family meeting to ensure safety upon discharge and answer any questions/concerns and ensure no guns or weapons in the house. Social work also to arrange for patients follow up appointments with [facility] for psychiatric care along with follow up with primary care provider. Patient will also be referred to and enrolled in partial hospitalization program for closer follow up. -Patient counseled on abstaining from recreational drugs and marijuana and alcohol. Was informed/educated on the adverse effects on their physical and mental health. Patient verbally agreed and understood. -Patient was instructed to return to the hospital or seek immediate medical care if their psychiatric or medical symptoms do worsen or reoccur. Allergies Allergy/AdvReac Type Severity Reaction Status Date / Time No Known Allergies Allergy Verified 06/22/22 13:55 Laboratory Results WBC 7.2 k/uL (3.8-10.6) 06/22/22 10:47 RBC 4.96 m/uL (4.30-5.90) 06/22/22 10:47 Hgb 15.9 gm/dL (13.0-17.5) 06/22/22 10:47 Hct 45.9 % (39.0-53.0) 06/22/22 10:47 MCV 92.4 fL (80.0-100.0) 06/22/22 10:47 MCH 32.0 pg (25.0-35.0) 06/22/22 10:47 MCHC 34.6 g/dL (31.0-37.0) 06/22/22 10:47 RDW 12.8 % (11.5-15.5) 06/22/22 10:47 Plt Count 156 k/uL (150-450) 06/22/22 10:47 MPV 7.1 06/22/22 10:47 Neutrophils % 59 % 06/22/22 10:47 Lymphocytes % 23 % 06/22/22 10:47 Monocytes % 6 % 06/22/22 10:47 Eosinophils % 9 % 06/22/22 10:47 Basophils % 1 % 06/22/22 10:47 Neutrophils # 4.2 k/uL (1.3-7.7) 06/22/22 10:47 Lymphocytes # 1.7 k/uL (1.0-4.8) 06/22/22 10:47 Monocytes # 0.4 k/uL (0-1.0) 06/22/22 10:47 Eosinophils # 0.6 k/uL (0-0.7) 06/22/22 10:47 Basophils # 0.1 k/uL (0-0.2) 06/22/22 10:47 Sodium 139 mmol/L (137-145) 06/29/22 06:30 Potassium 4.0 mmol/L (3.5-5.1) 06/29/22 06:30 Chloride 103 mmol/L (98-107) 06/29/22 06:30 Carbon Dioxide 29 mmol/L (22-30) 06/29/22 06:30 Anion Gap 7 mmol/L 06/29/22 06:30 BUN 19 mg/dL (9-20) 06/29/22 06:30 Creatinine 0.94 mg/dL (0.66-1.25) 06/29/22 06:30 Est GFR (CKD-EPI)AfAm >90 (>60 ml/min/1.73 sqM) 06/29/22 06:30 Est GFR (CKD-EPI)NonAf 82 (>60 ml/min/1.73 sqM) 06/29/22 06:30 Glucose 93 mg/dL (74-99) 06/29/22 06:[address] Glu mg/dL 117 06/24/22 13:44 Hemoglobin A1c 5.7 % (0.0-6.0) 06/24/22 13:44 Calcium 8.8 mg/dL (8.4-10.2) 06/29/22 06:30 Total Bilirubin 1.1 mg/dL (0.2-1.3) 06/22/22 10:47 AST 23 U/L (17-59) 06/22/22 10:47 ALT 26 U/L (4-49) 06/22/22 10:47 Alkaline Phosphatase 66 U/L (38-126) 06/22/22 10:47 Total Protein 5.9 g/dL (6.3-8.2) L 06/22/22 10:47 Albumin 3.9 g/dL (3.5-5.0) 06/22/22 10:47 Triglycerides 137.00 mg/dL (0.00-149.00) 06/24/22 13:44 Cholesterol 132.00 mg/dL (0.00-200.00) 06/24/22 13:44 LDL Cholesterol, Calc 70.0 mg/dL (0.0-131.0) 06/24/22 13:44 VLDL Cholesterol, Calc 27.40 mg/dL (5.00-40.00) 06/24/22 13:44 HDL Cholesterol 34.60 mg/dL (40.00-60.00) L 06/24/22 13:44 Cholesterol/HDL Ratio 3.82 Ratio 06/24/22 13:44 TSH 1.730 mIU/L (0.465-4.680) 06/24/22 13:44 Urine Color Yellow 06/22/22 10:47 Urine Appearance Clear (Clear) 06/22/22 10:47 Urine pH 6.5 (5.0-8.0) 06/22/22 10:47 Ur Specific [place] 1.017 (1.001-1.035) 06/22/22 10:47 Urine Protein Negative (Negative) 06/22/22 10:47 Urine Glucose (UA) Negative (Negative) 06/22/22 10:47 Urine Ketones Negative (Negative) 06/22/22 10:47 Urine Blood Negative (Negative) 06/22/22 10:47 Urine Nitrite Negative (Negative) 06/22/22 10:47 Urine Bilirubin Negative (Negative) 06/22/22 10:47 Urine Urobilinogen 2.0 mg/dL (<2.0) 06/22/22 10:47 Ur Leukocyte Esterase Negative (Negative) 06/22/22 10:47 Urine Opiates Screen Not Detected (NotDetected) 06/22/22 10:47 Ur Oxycodone Screen Not Detected (NotDetected) 06/22/22 10:47 Urine Methadone Screen Not Detected (NotDetected) 06/22/22 10:47 Ur Propoxyphene Screen Not Detected (NotDetected) 06/22/22 10:47 Ur Barbiturates Screen Not Detected (NotDetected) 06/22/22 10:47 U Tricyclic Antidepress Detected (NotDetected) H 06/22/22 10:47 Ur Phencyclidine Scrn Not Detected (NotDetected) 06/22/22 10:47 Ur Amphetamines Screen Not Detected (NotDetected) 06/22/22 10:47 U Methamphetamines Scrn Not Detected (NotDetected) 06/22/22 10:47 U Benzodiazepines Scrn Not Detected (NotDetected) 06/22/22 10:47 [place] 0.8 mmol/L 06/29/22 06:30 Urine Cocaine Screen Not Detected (NotDetected) 06/22/22 10:47 U Marijuana (THC) Screen Not Detected (NotDetected) 06/22/22 10:47 Coronavirus (PCR) Not Detected (Not Detectd) 06/22/22 10:47 Vital Signs Temp 97.8 F 07/07/22 06:25 Pulse 101 H 07/07/22 06:25 Resp 16 07/07/22 06:25 BP 132/91 07/07/22 06:25 Pulse Ox 99 07/07/22 06:25 FiO2 Intake & Output 07/06/22 07/07/22 07/07/22 18:59 06:59 18:59 Weight 106.6 kg Patient Condition at Discharge: Stable Plan - Discharge Summary Discharge Rx Participant: No New Discharge Prescriptions: New busPIRone HCl [Buspar] 20 mg PO BID PRN 15 Days #30 tab PRN Reason: Anxiety [place] Carbonate 600 mg PO HS 30 Days #60 cap Melatonin 10 mg PO HS 30 Days #60 tab QUEtiapine [SEROquel] 150 mg PO HS 30 Days #90 tab DULoxetine HCL [Cymbalta] 60 mg PO BID 30 Days #60 cap Mirtazapine [Remeron] 30 mg PO HS 30 Days #60 tab Sennosides-Docusate Sodium [Senokot-S] 1 each PO DAILY 30 Days #30 tab Continue Apixaban [Eliquis] 5 mg PO BID Rosuvastatin Calcium 5 mg PO HS Metoprolol Tartrate [Lopressor] 50 mg PO DAILY Triamcinolone 0.1% Cream [Kenalog 0.1% Cream] 1 applic TOPICAL BID PRN PRN Reason: location previous Emsa patch Metoprolol Tartrate [Lopressor] 100 mg PO HS Levothyroxine Sodium [Synthroid] 75 mcg PO DAILY clonazePAM [KlonoPIN] 0.5 mg PO DAILY PRN PRN Reason: Anxiety Discontinued Emsam 12mg/24hr Patch 1 patch TRANSDERM DAILY QUEtiapine [SEROquel] 200 mg PO HS 30 Days tab clonazePAM [KlonoPIN] 0.5 mg PO DAILY [place] Carbonate ER [Lithobid] 450 mg PO DAILY Discharge Medication List Apixaban [Eliquis] 5 mg PO BID 09/26/19 [History] Rosuvastatin Calcium 5 mg PO HS 09/26/19 [History] Levothyroxine Sodium [Synthroid] 75 mcg PO DAILY 08/24/20 [History] Metoprolol Tartrate [Lopressor] 50 mg PO DAILY 12/30/21 [History] Metoprolol Tartrate [Lopressor] 100 mg PO HS 06/22/22 [History] Triamcinolone 0.1% Cream [Kenalog 0.1% Cream] 1 applic TOPICAL BID PRN 06/22/22 [History] clonazePAM [KlonoPIN] 0.5 mg PO DAILY PRN 06/22/22 [History] DULoxetine HCL [Cymbalta] 60 mg PO BID 30 Days #60 cap 07/07/22 [Rx] [place] Carbonate 600 mg PO HS 30 Days #60 cap 07/07/22 [Rx] Melatonin 10 mg PO HS 30 Days #60 tab 07/07/22 [Rx] Mirtazapine [Remeron] 30 mg PO HS 30 Days #60 tab 07/07/22 [Rx] QUEtiapine [SEROquel] 150 mg PO HS 30 Days #90 tab 07/07/22 [Rx] Sennosides-Docusate Sodium [Senokot-S] 1 each PO DAILY 30 Days #30 tab 07/07/22 [Rx] busPIRone HCl [Buspar] 20 mg PO BID PRN 15 Days #30 tab 07/07/22 [Rx] Follow up Appointment(s)/Referral(s): [facility] [Outside] - 07/07/22 1:00 pm (07-07-22 at 1:[address] Harmon 07-09-22 at 1:30 with Kulwinder Lnyne) Ted Roca MD [Primary Care Provider] - 1-2 days Patient Instructions/Handouts: Depression (DC), Generalized Anxiety Disorder (GEN), Abuse of Alcohol (DC), Help Prevent Suicide (DC), Panic Attack (GEN) Activity/Diet/Wound Care/Special Instructions: Avoid the use of street drugs and alcohol. Take all medications as prescribed. When you are in need of refills on your medications, please contact your medical provider and/or outpatient psychiatrist to have this done. Please go to scheduled outpatient appointments for aftercare treatment. If symptoms return or become worse, call the crisis line at and/or go to the nearest emergency room for evaluation. Discharge Disposition: HOME SELF-CARE
== END 2022-07-07 14:08 | disposition home or self-care (01) | DRG 885 ==
LOC: EC 07:46 → 3MHU 06-23 13:02
PROVIDERS: ADMIT Psychiatry & Neurology Psychiatry; ATTEND Psychiatry & Neurology Psychiatry
DX: F33.2 Major depressive disorder, recurrent severe without psychotic features (principal); R45.851 Suicidal ideations; I48.91 Unspecified atrial fibrillation; I10 Essential (primary) hypertension; E78.5 Hyperlipidemia, unspecified; E03.9 Hypothyroidism, unspecified; Z79.890 Hormone replacement therapy; Z79.899 Other long term (current) drug therapy; Z79.01 Long term (current) use of anticoagulants; Z87.891 Personal history of nicotine dependence; F34.1 Dysthymic disorder; F41.0 Panic disorder [episodic paroxysmal anxiety]; G47.00 Insomnia, unspecified; Z71.89 Other specified counseling; Z20.822 Contact with and (suspected) exposure to COVID-19; Z71.3 Dietary counseling and surveillance
CPT/HCPCS: 36415; 80048; 80053; 80061; 80178; 80306; 81003; 82075; 83036; 84443; 85025; 87635; 93005; 99285

== ENCOUNTER 2023-09-17 02:48 | Emergency (ER) | payer MEDICARE ==
--- NOTE | 2023-09-17 03:11 | ED ---
Chest Pain HPI - General Chief Complaint: Chest Pain Stated Complaint: Chest Pain Time Seen by Provider: 09/17/23 03:08 Source: EMS Mode of arrival: EMS - History of Present Illness Initial Comments: This patient is 73-year-old man presenting to have evaluation of chest pain that started in epigastric and also involves the left chest and left shoulder area. The patient relates that he had an ablation for atrial fibrillation and was concerned as the pain started shortly after the ablation. He states a few days after he noticed that there was like a gas pain in the epigastric area and the pain also involves the left chest towards the shoulder. He denies dyspnea, diaphoresis, nausea or vomiting. MD Complaint: chest pain -: days(s) Onset: during rest Pain Location: left chest, epigastric Pain Radiation: LUE Severity: moderate Quality: tightness Consistency: constant Improves With: nothing Worsens With: nothing Treatments Prior to Arrival: none - Related Data Home Medications Medication Instructions Recorded Confirmed Apixaban [Eliquis] 5 mg PO BID 09/26/19 08/15/22 Rosuvastatin Calcium 5 mg PO HS 09/26/19 08/15/22 Levothyroxine Sodium [Synthroid] 75 mcg PO DAILY 08/24/20 08/15/22 Metoprolol Tartrate [Lopressor] 50 mg PO DAILY 12/30/21 08/15/22 Metoprolol Tartrate [Lopressor] 100 mg PO HS 06/22/22 08/15/22 Triamcinolone 0.1% Cream [Kenalog 1 applic TOPICAL BID PRN 06/22/22 08/15/22 0.1% Cream] ARIPiprazole [Abilify] 5 mg PO DAILY 08/15/22 08/15/22 Previous Rx's Medication Instructions Recorded DULoxetine HCL [Cymbalta] 60 mg PO BID 30 Days #60 cap 07/07/22 QUEtiapine [SEROquel] 150 mg PO HS 30 Days #90 tab 07/07/22 Allergies Allergy/AdvReac Type Severity Reaction Status Date / Time No Known Allergies Allergy Verified 09/17/23 02:53 Review of Systems ROS Statement: Those systems with pertinent positive or pertinent negative responses have been documented in the HPI. ROS Other: All systems not noted in ROS Statement are negative. Constitutional: Denies: fever, chills, weakness Respiratory: Denies: cough, dyspnea Cardiovascular: Reports: chest pain, palpitations. Denies: orthopnea, edema, syncope Gastrointestinal: Denies: abdominal pain, nausea, vomiting, melena, hematochezia Genitourinary: Denies: dysuria Musculoskeletal: Denies: back pain Skin: Denies: rash Neurological: Denies: headache, weakness, numbness EKG Findings - EKG Results: EKG: interpreted by ERMD - Dysrhythmias: Supraventricular dysrhythmia: atrial fibrillation (Rate 96 bpm) - Blocks, [place], Hypertrophy, ST Abn: AV and intraventricular conduction: right bundle branch block (fixed/intermittent, complete/incomplete), left anterior fascicular block Past Medical History Past Medical History: Atrial Fibrillation, Hyperlipidemia, Hypertension, Thyroid Disorder History of Any Multi-Drug Resistant Organisms: None Reported Past Surgical History: Orthopedic Surgery Additional Past Surgical History / Comment(s): achilles tendon repair, carpal tunnel R wrist, veronica knee scope Past Anesthesia/Blood Transfusion Reactions: No Reported Reaction Past Psychological History: Anxiety, Depression Smoking Status: Former smoker Past Alcohol Use History: None Reported Past Drug Use History: None Reported - Past Family History Mother Family Medical History: Hypertension General Exam General appearance: alert, in no apparent distress Head exam: Present: atraumatic, normocephalic Eye exam: Present: normal appearance. Absent: scleral icterus, conjunctival injection ENT exam: Present: normal oropharynx Neck exam: Present: normal inspection Respiratory exam: Present: normal lung sounds bilaterally. Absent: respiratory distress, wheezes, rales, rhonchi Cardiovascular Exam: Present: regular rate, irregular rhythm, normal heart sounds. Absent: systolic murmur, diastolic murmur, rubs, gallop GI/Abdominal exam: Present: soft. Absent: distended, tenderness, guarding, rebound, rigid, mass Extremities exam: Present: normal inspection, normal capillary refill. Absent: pedal edema, calf tenderness Back exam: Present: normal inspection. Absent: CVA tenderness (R), CVA tenderness (L) Neurological exam: Present: alert Skin exam: Present: warm, dry, intact, normal color. Absent: rash Course Vital Signs 09/17/23 09/17/23 09/17/23 02:50 04:00 05:39 Temperature 99.0 F Pulse Rate 105 H 101 H 98 Respiratory 18 18 18 Rate Blood Pressure 150/106 165/83 153/84 O2 Sat by Pulse 97 98 98 Oximetry Chest Pain MDM - MDM This patient is 73-year-old man with chest pain, whose initial workup is negative. The pain has been present long enough that he should have positive troponin where there ischemia. I did recommend that we admit the patient to have telemetry monitoring and cardiology consultation, but the patient states that he is going to follow-up in the clinic. He does have follow-up appointment related to his ablation. The patient does agree to return if there is any change in his condition. The patient had chest x-ray that I interpreted as negative for acute infiltrate, pneumothorax, congestive heart failure Was pt. sent in by a medical professional or institution (, PA, DIAMOND ASSORTER, urgent care, hospital, or half-way...) When possible be specific @ -[No] Did you speak to anyone other than the patient for history (EMS, parent, family, police, friend...)? What history was obtained from this source @ -[No] Did you review nursing and triage notes (agree or disagree)? Why? @ -[I reviewed and agree with nursing and triage notes] Were old charts reviewed (outside hosp., previous admission, EMS record, old EKG, old radiological studies, urgent care reports/EKG's, half-way records)? Report findings @ -[yeS, old charts were reviewed] Differential Diagnosis (chest pain, altered mental status, abdominal pain women, abdominal pain men, vaginal bleeding, weakness, fever, dyspnea, syncope, headache, dizziness, GI bleed, back pain, seizure, CVA, palpatations, mental health, musculoskeletal)? @ -[Differential Chest Pain: Stable Angina, Unstable Angina, STEMI, NSTEMI Aortic Dissection, Pneumothorax, Musculoskeletal, Esophageal Spasm GERD, Cholecystitis, Pancreatitis, Zoster, this is not meant to be an all-inclusive list. EKG interpreted by me (3pts min.). @ -[I interpreted as above] X-rays interpreted by me (1pt min.). @ -[I interpreted as above CT interpreted by me (1pt min.). @ -[None done] U/S interpreted by me (1pt. min.). @ -[None done] What testing was considered but not performed or refused? (CT, X-rays, U/S, labs)? Why? @ -[None] What meds were considered but not given or refused? Why? @ -[None] Did you discuss the management of the patient with other professionals (braydon oliver i.e. , PA, DIAMOND ASSORTER, lab, RT, psych nurse, social problems specialist, nanny babysitter, teacher, humane officer, egg caser)? Give summary @ -[No] Was smoking cessation discussed for >3mins.? @ -[No] Was critical care preformed (if so, how long)? @ -[No] Were there social determinants of health that impacted care today? How? (Homelessness, low income, unemployed, alcoholism, drug addiction, transportation, low edu. Level, literacy, decrease access to med. care, senior living, rehab)? @ -[No] Was there de-escalation of care discussed even if they declined (Discuss DNR or withdrawal of care, Hospice)? DNR status @ -[No] What co-morbidities impacted this encounter? (DM, HTN, Smoking, COPD, CAD, Cancer, CVA, ARF, Chemo, Hep., AIDS, mental health diagnosis, sleep apnea, morbid obesity)? @ -[Hypertension, atrial fibrillation Was patient admitted / discharged? Hospital course, mention meds given and route, prescriptions, significant lab abnormalities, going to OR and other pertinent info. @ -[As above Undiagnosed new problem with uncertain prognosis? @ -[No] Drug Therapy requiring intensive monitoring for toxicity (Heparin, Nitro, Insulin, Cardizem)? @ -[No] Were any procedures done? @ -[No] Diagnosis/symptom? @ -[Chest pain Acute, or Chronic, or Acute on Chronic? @ -[Acute Uncomplicated (without systemic symptoms) or Complicated (systemic symptoms)? @ -[Uncomplicated Side effects of treatment? @ -[No] Exacerbation, Progression, or Severe Exacerbation? @ -[No] Poses a threat to life or bodily function? How? (Chest pain, [place], [place], pneumonia, PE, COPD, DKA, ARF, appy, cholecystitis, CVA, Diverticulitis, Homicidal, Suicidal, threat to staff... and all critical care pts) @ -[There is possible threat to life, requires further evaluation, patient will have close follow-up with cardiology Disposition Clinical Impression: Chest pain Disposition: HOME SELF-CARE Condition: Undetermined Instructions (If sedation given, give patient instructions): Chest Pain (ED) Is patient prescribed a controlled substance at d/c from ED?: No Referrals: Ted Roca MD [Primary Care Provider] - 1-2 days
[2023-09-17 03:30] LABS: Basophils % (A) 0 %; Eosinophils # (A) 0.4 k/uL (0-0.7); Eosinophils % (A) 3 %; HCT 44.3 % (39.0-53.0); HGB 14.4 gm/dL (13.0-17.5); Lymphocytes # (A) 1.2 k/uL (1.0-4.8); Lymphocytes % (A) 11 %; MCHC 32.5 g/dL (31.0-37.0); MCV 98.5 fL (80.0-100.0); Mean Platelet Volume 8.1; Monocytes # (A) 0.9 k/uL (0-1.0); Monocytes % (A) 8 %; Neutrophils # (A) 8.5 k/uL (1.3-7.7); Neutrophils % (A) 76 %; Platelet Count 144 k/uL (150-450); RBC 4.49 m/uL (4.30-5.90); RDW 13.9 % (11.5-15.5); WBC 11.2 k/uL (3.8-10.6)
[2023-09-17 03:32] VITALS: RESP 18; TEMP 99
[2023-09-17 03:42] LABS: INR 1.2 (<1.2); Partial Thromboplastin Time 24.5 sec (22.0-30.0); Prothrombin Time 12.5 sec (10.0-12.5)
[2023-09-17 03:54] LABS: ALT 35 U/L (4-49); AST 29 U/L (17-59); African American GFR (CKD) 86 (>60 ml/min/1.73 sqM); Albumin 3.9 g/dL (3.5-5.0); Alkaline Phosphatase 71 U/L (38-126); Amylase 52 U/L (30-110); Anion Gap 8 mmol/L; Blood Urea Nitrogen 11 mg/dL (9-20); Calcium 8.8 mg/dL (8.4-10.2); Carbon Dioxide 24 mmol/L (22-30); Chloride 103 mmol/L (98-107); Glucose 103 mg/dL (74-99); Lipase 63 U/L (23-300); Magnesium 1.7 mg/dL (1.6-2.3); Non-African American GFR(CKD) 74 (>60 ml/min/1.73 sqM); Potassium 4.2 mmol/L (3.5-5.1); Sodium 135 mmol/L (137-145); Total Bilirubin 1.4 mg/dL (0.2-1.3); Total Protein 5.8 g/dL (6.3-8.2)
--- NOTE | 2023-09-17 04:46 | XR ---
EXAM: XR Chest, 2 Views CLINICAL HISTORY: ITS.REASON XR Reason: Chest Pain TECHNIQUE: Frontal and lateral views of the chest. COMPARISON: No relevant prior studies available. FINDINGS: Lungs: No consolidation or mass. Slight left basilar opacity with elevated left hemidiaphragm. Pleural space: No effusion. Heart: cardiomegaly. Bones/joints: No acute findings. IMPRESSION: Slight left basilar opacity with elevated left hemidiaphragm.
[2023-09-17 05:46] VITALS: BP 153/84; PULSE 98
== END 2023-09-17 05:40 | disposition home or self-care (01) ==
LOC: EC 02:48
DX: R07.89 Other chest pain (principal); I10 Essential (primary) hypertension; I48.91 Unspecified atrial fibrillation; Z79.01 Long term (current) use of anticoagulants; Z79.899 Other long term (current) drug therapy; Z87.891 Personal history of nicotine dependence
CPT/HCPCS: 36415; 71046; 80053; 82150; 83690; 83735; 84484; 85025; 85610; 85730; 93005; 99285